=== PATIENT | male | born 1940 | race Two or more races ===

== ENCOUNTER 2025-03-12 15:42 | Outpatient (AMB) | payer MEDICARE, SELFPAY ==
--- NOTE | 2025-03-12 15:49 | HO.NEPHOV ---
Vital Signs 03/12/25 15:53 Height 5 ft 2 in Weight 152 lb 4 oz BMI 27.8 BP 100/50 L Blood Pressure Location Rt brachial Position Sitting Pulse 54 Pulse Source Pulse Oximeter Pulse Oximetry (%) 97 Oxygen Delivery Method Room Air Intake Visit Reasons: DX- CKD (Second opinion)- Conf Sharepoint Application Developer Required: No Accompanied by: Self / Same As Patient Allergies No Known Allergies Allergy (Verified 03/12/25 15:50) HPI Comments Details: I had the pleasure of seeing Mr Cotton in consultation and transfer of his renal care to me. He has seen another electronic wirer in the past. He is known to have vascular disease including CAD needing CABG. He has mild ascending aortic dialatation. He also has H/O DM, HTN and gout. He had GFR of 30 mls/mt for some time which has worsened recently to 15 mls/mt. He is on multiple anti hypertensive medications including ARB. He denies CHF, CVA or PAD. He does not have any new bone or back pain. He does not take excess NSAID's . He denies Chest pain, SOB, PND, orthopnea or uremic symptoms. He never had renal biopsy. [facility] Medical History (Updated 03/12/25 @ 16:34 by Meir Domínguez MD) Obstructive sleep apnea syndrome Mild ascending aorta dilatation Hypertension HLD (hyperlipidemia) Helicobacter pylori (H. pylori) Gout Diabetes mellitus Chronic kidney disease, stage 4 (severe) CAD (coronary artery disease), [place] coronary artery Adult hypothyroidism Surgical History H/O colonoscopy S/P CABG x 4 Social History (Updated 03/12/25 @ 15:50 by Madison Harrison MA) Alcohol intake: never Patient Tobacco Use Status: Never used Tobacco Review of Systems Const All systems reviewed & are unremarkable except as noted in HPI and below Physical Exam Vital Signs: Last Vital Signs Pulse 54 03/12/25 15:53 BP 100/50 L 03/12/25 15:53 Pulse Ox 97 03/12/25 15:53 Oxygen Delivery Method Room Air 03/12/25 15:53 BMI result Body Mass Index 27.8 Const General: comfortable and no acute distress Orientation/consciousness: patient oriented x3 HEENT Head: Yes normocephalic Mouth: Normal oral and palatal mucosa present Eyes EOM: EOMs intact bilaterally Neck Neck: Yes supple Resp Auscultation: clear to auscultation bilaterally Cardio Jugular venous distension: no JVD Rate: regular rate GI Palpation (GI): Soft to palpation Auscultation: normal bowel sounds General: Yes no CVA tenderness Back/Spine/Pelvis Back: no CVA tenderness Skin General skin exam: no rashes or lesions noted Neuro General: patient oriented x3 and moves all extremities Extrem General: Yes no pedal edema Assessment & Plan Assessment & Plan (1) Chronic kidney disease, stage 4 (severe): Code(s): N18.4 - Chronic kidney disease, stage 4 (severe) Category: Medical (2) Hypertension: Code(s): I10 - Essential (primary) hypertension Category: Medical Qualifiers: Hypertension type: renovascular hypertension Qualified Code(s): I15.0 - Renovascular hypertension (3) Anemia in chronic kidney disease: Code(s): N18.9 - Chronic kidney disease, unspecified; D63.1 - Anemia in chronic kidney disease Category: Medical Qualifiers: Chronic kidney disease stage: stage 4 (GFR 15-29) Qualified Code(s): N18.4 - Chronic kidney disease, stage 4 (severe); D63.1 - Anemia in chronic kidney disease Plan Mr Cotton has advanced CKD likely due to vascular disease. He is on losartan 50 mg bid which I reduced to 50 mg daily. I have ordered imaging studies and further CKD W/U. I may back off on ARB to see whether he will have some improvement in GFR. He will need continued adjustment of BP medications, which I plan to do based on evolving data. He should cut back Na in diet and avoid NSAID's. All questions answered. F/U given in 1 month Orders: Orders Complete Blood Count Auto Diff 3 Weeks D63.1 - Anemia in chronic kidney disease, I10 - Essential (primary) hypertension, N18.4 - Chronic kidney disease, stage 4 (severe), N18.9 - Chronic kidney disease, unspecified Hepatitis B Core Antibody 3 Weeks D63.1 - Anemia in chronic kidney disease, I10 - Essential (primary) hypertension, N18.4 - Chronic kidney disease, stage 4 (severe), N18.9 - Chronic kidney disease, unspecified Anti Glomerular Basement Memb 3 Weeks D63.1 - Anemia in chronic kidney disease, I10 - Essential (primary) hypertension, N18.4 - Chronic kidney disease, stage 4 (severe), N18.9 - Chronic kidney disease, unspecified Immunofixation Pnl, Serum 3 Weeks D63.1 - Anemia in chronic kidney disease, I10 - Essential (primary) hypertension, N18.4 - Chronic kidney disease, stage 4 (severe), N18.9 - Chronic kidney disease, unspecified Creatinine 3 Weeks D63.1 - Anemia in chronic kidney disease, I10 - Essential (primary) hypertension, N18.4 - Chronic kidney disease, stage 4 (severe), N18.9 - Chronic kidney disease, unspecified Electrolytes 3 Weeks D63.1 - Anemia in chronic kidney disease, I10 - Essential (primary) hypertension, N18.4 - Chronic kidney disease, stage 4 (severe), N18.9 - Chronic kidney disease, unspecified Calcium 3 Weeks D63.1 - Anemia in chronic kidney disease, I10 - Essential (primary) hypertension, N18.4 - Chronic kidney disease, stage 4 (severe), N18.9 - Chronic kidney disease, unspecified US renal BI 3 Weeks D63.1 - Anemia in chronic kidney disease, I10 - Essential (primary) hypertension, N18.4 - Chronic kidney disease, stage 4 (severe), N18.9 - Chronic kidney disease, unspecified Ferritin 3 Weeks D63.1 - Anemia in chronic kidney disease, I10 - Essential (primary) hypertension, N18.4 - Chronic kidney disease, stage 4 (severe), N18.9 - Chronic kidney disease, unspecified IRON PROFILE 3 Weeks D63.1 - Anemia in chronic kidney disease, I10 - Essential (primary) hypertension, N18.4 - Chronic kidney disease, stage 4 (severe), N18.9 - Chronic kidney disease, unspecified Hepatitis C Antibody Reflex 3 Weeks D63.1 - Anemia in chronic kidney disease, I10 - Essential (primary) hypertension, N18.4 - Chronic kidney disease, stage 4 (severe), N18.9 - Chronic kidney disease, unspecified Myeloperoxidase Antibody 3 Weeks D63.1 - Anemia in chronic kidney disease, I10 - Essential (primary) hypertension, N18.4 - Chronic kidney disease, stage 4 (severe), N18.9 - Chronic kidney disease, unspecified Proteinase 3 PR3 Antibodies 3 Weeks D63.1 - Anemia in chronic kidney disease, I10 - Essential (primary) hypertension, N18.4 - Chronic kidney disease, stage 4 (severe), N18.9 - Chronic kidney disease, unspecified Phospholipase A2 Receptor Pnl 3 Weeks D63.1 - Anemia in chronic kidney disease, I10 - Essential (primary) hypertension, N18.4 - Chronic kidney disease, stage 4 (severe), N18.9 - Chronic kidney disease, unspecified Blood Urea Nitrogen 3 Weeks D63.1 - Anemia in chronic kidney disease, I10 - Essential (primary) hypertension, N18.4 - Chronic kidney disease, stage 4 (severe), N18.9 - Chronic kidney disease, unspecified Parathyroid Hormone Intact 3 Weeks D63.1 - Anemia in chronic kidney disease, I10 - Essential (primary) hypertension, N18.4 - Chronic kidney disease, stage 4 (severe), N18.9 - Chronic kidney disease, unspecified Vitamin D 25-OH Total 3 Weeks D63.1 - Anemia in chronic kidney disease, I10 - Essential (primary) hypertension, N18.4 - Chronic kidney disease, stage 4 (severe), N18.9 - Chronic kidney disease, unspecified US renal doppler 3 Weeks D63.1 - Anemia in chronic kidney disease, I10 - Essential (primary) hypertension, N18.4 - Chronic kidney disease, stage 4 (severe), N18.9 - Chronic kidney disease, unspecified Coding Level of Care Code New Pt Level 4 (79849) Diagnoses Chronic kidney disease, stage 4 (severe) N18.4 Renovascular hypertension I15.0 Hypertension type: renovascular hypertension Anemia in stage 4 chronic kidney disease N18.4; D63.1 Chronic kidney disease stage: stage 4 (GFR 15-29)
[2025-03-12 15:53] VITALS: BP 100/50; PULSE 54; O2SAT 97; BMI 27.8
--- OUTSIDE RECORDS SUMMARY | 2025-03-12 17:43 | XMS_ITS | Encounter Summary ---
Author Organization [facility] Address [address] [place] [address] Phone Care Team Providers Care Insurance Coordinator Name Role Phone Camille Domínguez MD Primary Care Provider [phone] Encounter Details Date Type Department Care Team (Late st Contact Info) Description 01/18/2024 Documentation Only [facility] [address] [place] [address] Sang Lai DO [address] [place] [address] Social History Tobacco Use Types Packs/Day Years Used Date Smoking Tobacco: Never Alcohol Use Standard Drinks/Week Comments No 0 (1 standard drink = 0.6 oz pur e alcohol) Sex and Gender Information Value Date Recorded Sex Assigned at Not on file Legal Sex Male 4:34 PM EST Gender Identity Not on file Sexual Orientation Not on file documented as of this encounter Plan of Treatment Upcoming Encounters Date Type Department Care Team (Late st Contact Info) Description 04/27/2025 1:45 PM EDT Office Visit [facility] [address] [place] [address] Sang Lai DO [address] [place] [address] documented as of this encounter Visit Diagnoses Not on filedocumented in this encounter Care Teams Insurance Coordinator Relationship Specialty Start Date End Date Camille Domínguez MD [address] [place] [address] MEDICINE [place], [place] PCP - General 05/23/19 documented as of this encounter
--- OUTSIDE RECORDS SUMMARY | 2025-03-12 17:43 | XMS_ITS | Clinical Summary ---
Author Organization [facility] [place] [address] Care Team Providers Care Dog Handler Or Trainer Name Role Phone Camille Domínguez MD Primary Care Provider [phone] Social History Tobacco Use Types Packs/Day Years Used Date Smoking Tobacco: Never Smokeless Tobacco: Never Alcohol Use Standard Drinks/Week Comments Not Currently 0 (1 standard drink = 0.6 oz pur e alcohol) Sex and Gender Information Value Date Recorded Sex Assigned at Not on file Legal Sex Male 3:42 PM EDT Gender Identity Not on file Sexual Orientation Not on file Obstetrics History Last Filed Vital Signs Vital Sign Reading Time Taken Comments Blood Pressure 120/60 04/19/2024 1:46 PM EDT Sit ting L Arm Pulse 58 03/31/2024 12:30 PM EDT Temperature - - Respiratory Rate - - Oxygen Saturation - - Inhaled Oxygen Concentration - - Weight 73.9 kg (163 lb) 04/19/2024 1:46 PM EDT Height 160 cm (5' 3 ) 04/19/2024 1:46 PM EDT Body Mass Index 28.87 04/19/2024 1:46 PM EDT Plan of Treatment Health Maintenance Due Date Last Done Comments DTaP,Tdap,and Td Vaccines (1 - Tdap) 1959 Pneumococcal Vaccine: 50+ Ye ars (1 of 1 - PCV) 1990 Zoster Vaccines (1 of 2) 1990 RSV Immunization Adult Patie nts (1 - 1-dose 75+ series) 2015 COVID-19 Vaccine ( - 2023-2 5 season) 2024 Cholesterol Screening (Lipid Panel) 04/27/2024 Falls Risk Assessment 04/27/2024 Hypertension/CHF/CAD Annual BMP Blood Test 04/27/2024 Social Influencers of Health Screening 04/27/2024 Depression Screening 07/19/2024 Influenza Vaccine (#1) 2025 HIB Vaccines Aged Out No longer eligi ble based on patient's age to complete this topic HPV Vaccines Aged Out No longer eligi ble based on patient's age to complete this topic Hepatitis A Vaccines Aged Out No long er eligible based on patient's age to complete this topic Hepatitis B Vaccines Aged Out No long er eligible based on patient's age to complete this topic IPV Vaccines Aged Out No longer eligi ble based on patient's age to complete this topic MMR Vaccines Aged Out No longer eligi ble based on patient's age to complete this topic Meningococcal ACWY Vaccine Aged Out N o longer eligible based on patient's age to complete this topic Meningococcal B Vaccine Aged Out No l onger eligible based on patient's age to complete this topic RSV Immunization Patients Un buddy 20 months Aged Out No longer eligible b ased on patient's age to complete this topic Varicella Vaccines Aged Out No longer eligible based on patient's age to complete this topic Care Teams Dog Handler Or Trainer Relationship Specialty Start Date End Date Camille Domínguez MD [address] [place] [address] PCP - General 03/22/24
--- OUTSIDE RECORDS SUMMARY | 2025-03-12 17:43 | XMS_ITS | Encounter Summary ---
Author Organization [facility] Address [address] [place] [address] Phone Care Team Providers Care Cost And Risk Analysis Manager Name Role Phone Camille Domínguez MD Primary Care Provider [phone] Encounter Details Date Type Department Care Team (Late st Contact Info) Description 04/26/2024 Documentation Only [facility] [address] [place] [address] Sang Lai DO [address] [place] [address] Social History Tobacco Use Types [...] Visit [facility] [address] [place] [address] Sang Lai DO [address] [place] [address] documented as of this encounter Visit Diagnoses Not on filedocumented in this encounter Care Teams Cost And Risk Analysis Manager Relationship Specialty Start Date End Date Camille Domínguez MD [address] [place] [address] MEDICINE [place], [place] PCP - General 05/23/19 documented as of this encounter
--- OUTSIDE RECORDS SUMMARY | 2025-03-12 17:43 | XMS_ITS | Encounter Summary ---
Author Organization [facility] Address [address] [place] [address] Phone Care Team Providers Care Seismic Observer Name Role Phone Camille Domínguez MD Primary Care Provider [phone] Encounter Details Date Type Department Care Team (Late Contact Info) Description 09/10/2019 Orders Only [facility] [address] [place] [address] Sang Lai DO [address] [facility] [place] [address] Benign prostatic hypertrophy without outflow obstruction Social History Tobacco Use Types Packs/Day Years [...] Visit [facility], [address] [place] [address] Sang Lai DO [address] [facility] [place] [address] documented as of this encounter Visit Diagnoses Diagnosis Benign prostatic hypertrophy without outflow obstruction documented in this encounter Care Teams Seismic Observer Relationship Specialty Start Date End Date Camille Domínguez MD [address] [facility] MEDICINE [place], [place] PCP - General 05/23/19 documented as of this encounter
--- OUTSIDE RECORDS SUMMARY | 2025-03-12 17:43 | XMS_ITS | Encounter Summary ---
Author Organization [facility] Address [address] [place] [address] Phone Care Team Providers Care Firewood Cutter Name Role Phone Camille Domínguez MD Primary Care Provider [phone] Encounter Details Date Type Department Care Team (Late st Contact Info) Description 05/13/2023 Documentation Only [facility] [address] [place] [address] Sang Lai DO [address] [place] [phone] Social History Tobacco Use Types Packs/Day Years [...] Visit [facility] [address] [place] [address] Sang Lai DO [address] [place] [address] documented as of this encounter Visit Diagnoses Not on filedocumented in this encounter Care Teams Firewood Cutter Relationship Specialty Start Date End Date Camille Domínguez MD [address] [place] [address] MEDICINE [place], [place] PCP - General 05/23/19 documented as of this encounter
--- OUTSIDE RECORDS SUMMARY | 2025-03-12 17:43 | XMS_ITS | Encounter Summary ---
Author Organization [facility] [place], Address [address] [place] [address] Phone Care Team Providers Care Silk Soaker Name Role Phone Camille Domínguez MD Primary Care Provider [phone] Encounter Details Date Type Department Care Team (Late Contact Info) Description 02/23/2025 Orders Only [facility] [address] [place] [place] [address] Laura Lopez [address] [place] [phone] Chronic kidney disease, stage 4 (severe) (HCC) Social History Tobacco Use Types Packs/Day Years [...] [facility] [address] [place] [address] Sang Lai DO [address] [place] [address] documented as of this encounter Visit Diagnoses Diagnosis Chronic kidney disease, stage 4 (severe) (HCC) documented in this encounter Care Teams Silk Soaker Relationship Specialty Start Date End Date Camille Domínguez MD [address] [place], [place] PCP - General 05/23/19 documented as of this encounter
--- OUTSIDE RECORDS SUMMARY | 2025-03-12 17:43 | XMS_ITS | Encounter Summary ---
Author Organization [facility] Address [address] [place] [address] Phone Care Team Providers Care Research Nutritionist Name Role Phone Camille Domínguez MD Primary Care Provider [phone] Encounter Details Date Type Department Care Team (Late st Contact Info) Description 08/30/2024 Documentation Only [facility] [address] [address] Sang Lai DO [address] [facility] [address] [place] [phone] Social History Tobacco Use Types Packs/Day Years [...] Visit [facility] [address] [address] Sang Lai DO [address] [facility] [address] [place] [address] documented as of this encounter Visit Diagnoses Not on filedocumented in this encounter Care Teams Research Nutritionist Relationship Specialty Start Date End Date Camille Domínguez MD [address] [place] [address] MEDICINE [place], [place] PCP - General 05/23/19 documented as of this encounter
--- OUTSIDE RECORDS SUMMARY | 2025-03-12 17:43 | XMS_ITS | Clinical Summary ---
Author Organization [facility], Address [address] [place] [address] [place] [address] Phone Care Team Providers Care Gutter Installer Name Role Phone Camille Domínguez MD Primary Care Provider [phone] Allergies No known active allergies Medications aspirin 81 MG tablet Take 81 mg by mouth 1 (one) time each day Active atorvastatin (LIPITOR) 20 MG tablet Take 20 mg by mouth 1 (one) time each day Active metoprolol succinate XL (TOPROL-XL) 25 MG 24 hr tablet Take 25 mg by mouth 1 (one) time each day Active doxazosin (CARDURA) 4 MG tablet Take 1 tablet (4 mg total) by mouth every night 90 tablet 3 0 Active levothyroxine (SYNTHROID, LEVOTHROID) 75 MCG tablet levothyroxine 75 mcg tablet TAKE 1 TABLET BY MOUTH EVERY DAY Active amLODIPine (NORVASC) 5 MG tablet Take 5 mg by mouth 1 (one) time each day Active allopurinol (ZYLOPRIM) 100 MG tablet TAKE 1 TABLET BY MOUTH EVERY DAY 90 tablet 3 4 Active losartan (COZAAR) 50 MG tablet Take 1 tablet (50 mg total) by mouth in the morning and 1 tablet (50 mg total) in the evening. 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, with stage 1 through stage 4 chronic kidney disease, or unspecified chronic kidney disease 08/10/2019 Hypothyroidism Hyperlipidemia Hypertension Gout Benign prostatic hyperplasia without outflow obs truction Resolved Problems Problem Noted Date Diagnosed Date Resolved Date Stage 3b chronic kidney disease 08/10/2019 12/24/2021 Encounters Date Type Department Care Team Description 02/23/2025 Orders Only [facility] V[facility] Access [address] [place] [phone] Laura Lopez Chronic kidney disease, stage 4 (severe) (HCC) 02/16/2025 Documentation Only [facility] [address] [place] [phone] Laura Lopez 02/12/2025 Telephone [facility] [address] [place] [phone] Laura Lopez 02/12/2025 Orders Only [facility] [address] [place] [phone] Laura Lopez Chronic kidney disease, stage 4 (severe) (HCC) (Primary Dx) 02/12/2025 Orders Only [facility] [address] [place] [phone] Laura Lopez Chronic kidney disease, stage 4 (severe) (HCC) (Primary Dx); Anemia in chronic kidney disease; Other iron deficiency anemia 02/09/2025 1:45 PM EDT Office Visit [facility] [address] [place] [phone] Sang Lai DO Other acute kidney failure (HCC) (Primary Dx); Chronic kidney disease, stage 4 (severe) (HCC); Hypertensive heart and chronic kidney disease without heart failure, with stage 1 through stage 4 chronic kidney disease, or unspecified chronic kidney disease; Persistent proteinuria; Aneurysm of aorta, not otherwise specified (HCC) 02/08/2025 Office Communication [facility] [address] [place] [phone] Christina Lockett 01/02/2025 Documentation Only [facility], - Vascular Access Center [address] [place] [address] Hue Lopezn 12/28/2024 Refill [facility], [address] [place] [phone] Sang Lai DO from Last 3 Months Immunizations Immunization Administration Dates Next Due H1N1 Inj 11/01/2009 Influenza (IM) Preservative Free 06/01/2019 Influenza Split High Dose Pr eservative Free IM 04/20/2016,05/04/2015 Influenza TIV (IM) 06/02/2016 Influenza Vaccine, Quadrival ent, Adjuvanted 03/25/2020 Influenza Whole 06/02/2006 Influenza, Unspecified 04/14/2023,2021,04/09/2021,03/25,06/01/2019,04/28/2018,05/18/2017 ,05/28/2015,04/19/2014,06/13/2013,1210/2011,04/28/2011,07/09/2010, 8 Moderna SARS-COV-2 12/05/2021 Pfizer SARS-COV-2 04/14/2021,09/10/2020,08/20/19 21 Pneumococcal Conjugate 13-Valent 08/13/2016,01/0 09/2016 Pneumococcal Polysaccharide 05/17/2018, 7,06/02/2006 SARS-CoV-2, Unspecified 05/12/2023,04/27/2022 Shingrix 07/20/2022,01/15/2022 Td, Unspecified 12/23/2016,02/02/2007 Family History Medical History Relation Comments Hypertension Father Stroke Father Relation Status Comments Father Social History Tobacco Use Types Packs/Day Years Used Date Smoking Tobacco: Never Alcohol Use Standard Drinks/Week Comments No 0 (1 standard drink = 0.6 oz pur e alcohol) Sex and Gender Information Value Date Recorded Sex Assigned at Not on file Legal Sex Male 4:34 PM EST Gender Identity Not on file Sexual Orientation Not on file Last Filed Vital Signs Vital Sign Reading Time Taken Comments Blood Pressure 118/54 02/09/2025 1:53 PM EDT Pulse 70 02/09/2025 1:53 PM EDT Temperature - - Respiratory Rate - - Oxygen Saturation - - Inhaled Oxygen Concentration - - Weight 76.7 kg (169 lb) 12/24/2021 4:31 PM EDT Height 165.1 cm (5' 5 ) 02/02/2019 12:00 PM EDT Body Mass Index 28.12 02/02/2019 12:00 PM EDT Plan of Treatment Upcoming Encounters Date Type Department Care Team (Late st Contact Info) Description 04/27/2025 1:45 PM EDT Office Visit [facility], [address] [place] [address] Sang Lai, [address] [place] [phone] Health Maintenance Due Date Last Done Comments Diabetes: Hemoglobin A1C 09/11/2022 09/01/2021, 02/16 Diabetes: Ophthalmology Exam 09/11/2022 11/23/2017, 08/05/2016, 06/09/2016 Diabetes: Pedal Pulse Checked 09/11/2022 Diabetes: Sensory Foot Exam 09/11/2022 Diabetes: Visual Foot Exam 09/11/2022 Influenza Vaccine (#1) 2025 3, 04/27/2022, 04/09/2021, Additional history exists Pneumococcal Vaccine: 50+ Years Completed 05/17/2018, 08/13/2016, 08/13/2016, Additional history exists Pneumococcal Vaccine: Peds (0 to 5 Years) and At-Risk Patients (6 to 49 Years) Discontinued 05/17/2018, 08/13/2016, 08/13/2016, Additional history exists Hepatitis B Vaccine Aged Out No longe r eligible based on patient's age to complete this topic Procedures Procedure Name Priority Date/Time Associated Diagnosis Comments PTH, INTACT Routine 01/23/2025 3:33 PM EDT VITAMIN D 25 HYDROXY Routine 01/23/2025 3:33 PM EDT URINE ALBUMIN / CREATININE RATIO Routine 01/23/2025 3:33 PM EDT CBC Routine 01/23/2025 3:33 PM EDT RENAL FUNCTION PANEL Routine 01/23/2025 3:33 PM EDT HEMOGLOBIN A1C Routine 09/01/2021 7:55 AM EST Stage 3b chronic kidney disease (HCC) Hypertensive heart and chronic kidney disease without heart failure, with stage 1 through stage 4 chronic kidney disease, or unspecified chronic kidney disease from Last 3 Months or Most Recently Relevant to Health Maintenance Results * (ABNORMAL) Urine Albumin / Creatinine Ratio (01/23/2025 3:33 PM EDT) Creatinine, Ur 174.3 Not Estab. mg/dL [facility] Albumin, Urine 740.7 Not Estab. ug/mL [facility] Comment: Results confirmed on dilution. Albumin/Creatin ine Ratio 425(H) 0 - 29 mg/g creat [facility] Comment: Normal: 0 - 29 Moderately increased: 30 - 300 Severely increased: >300 01/23/2025 3:33 PM EDT 01/23/2025 us Sang Lai DO LAB URINE ORDERABLES Final Resu lt LABVoolgoRP [facility] [address] [place] [address] * (ABNORMAL) Vitamin D 25 Hydroxy (01/23/2025 3:33 PM EDT) Vitamin D, 25-OH, Total 23.1(L) 30.0 - 100.0 ng/mL [facility] Comment: Vitamin D deficiency has been defined by the [place] of Medicine and an Endocrine Society practice guideline as a level of serum 25-OH vitamin D less than 20 ng/mL (1,2). The Endocrine Society went on to further define vitamin D insufficiency as a level between 21 and 29 ng/mL (2). 1. IOM ([place] of Medicine). 2010. Dietary reference intakes for calcium and D. [place]: The National Academies Press. 2. Urvashi MF, Rhona [place], Judith VASQUEZ, et al. Evaluation, treatment, and prevention of vitamin D deficiency: an Endocrine Society clinical practice guideline. JCEM. 2010; 96(7):1911-30. 01/23/2025 3:33 PM EDT 01/23/2025 us Sang Lai DO LAB BLOOD ORDERABLES Final Resu lt L[facility]P [facility] [address] [place] [address] * (ABNORMAL) CBC (01/23/2025 3:33 PM EDT) WBC 5.0 3.4 - 10.8 x10E3/uL [facility] RBC 2.81(L) 4.14 - 5.80 x10E6/uL [facility] Hemoglobin 9.8(L) 13.0 - 17.7 g/dL [facility] Hematocrit 29.5(L) 37.5 - 51.0 % [facility] MCV 105(H) 79 - 97 fL [facility] MCH 34.9(H) 26.6 - 33.0 pg [facility] MCHC 33.2 31.5 - 35.7 g/dL [facility] RDW 12.9 11.6 - 15.4 % [facility] Platelets 117(L) 150 - 450 x10E3/uL [facility] 01/23/2025 3:33 PM EDT 01/23/2025 Sang Traceyry LAB BLOOD ORDERABLES Final Resu lt LABCO [facility] [address] [place] [address] * (ABNORMAL) PTH, Intact (01/23/2025 3:33 PM EDT) PTH 144(H) 15 - 65 pg/mL [facility] 01/23/2025 3:33 PM EDT 01/23/2025 Sang Lai LAB BLOOD ORDERABLES Final Resu lt Performing Organization Address [facility] Co de Phone Number LABCO [facility] [address] [place] [address] * (ABNORMAL) Renal Function Panel (01/23/2025 3:33 PM EDT) Glucose 99 70 - 99 mg/dL [facility] BUN 49(H) 8 - 27 mg/dL [facility] Creatinine 3.54(H) 0.76 - 1.27 mg/dL [facility] eGFR CKD-EPI CR 2020 16(L) >59 mL/min/1.7 3 [facility] BUN/Creatinine Ratio 14 10 - 24 [facility] Sodium 138 134 - 144 mmol/L [facility] Potassium 4.5 3.5 - 5.2 mmol/L [facility] Chloride 102 96 - 106 mmol/L [facility] Bicarbonate (CO2) 21 20 - 29 mmol/L [facility] Calcium 8.8 8.6 - 10.2 mg/dL [facility] Albumin 3.9 3.7 - 4.7 g/dL [facility] Phosphorus 3.6 2.8 - 4.1 mg/dL [facility] 01/23/2025 3:33 PM EDT 01/23/2025 us Sang Lai DO LAB BLOOD ORDERABLES Final Resu lt [facility] [address] [place] [address] * (ABNORMAL) Hemoglobin A1c (09/01/2021 7:55 AM EST) Hemoglobin A1C 6.2(H) (4.0-5.6) % [facility] Comment: MONITORING: In known diabetic patients, hemoglobin A1c targets should be discussed with health care provider. DIAGNOSTIC USE: The [place] Diabetes Association (ADA) and the World Health Organization (WHO) recommend the use of HbA1c to diagnose diabetes using a threshold of 6.5%. Patients who have an HbA1c between 5.7% and 6.4% are considered at increased risk for developing diabetes in the future. CAUTION: Falsely low HbA1c results may be observed in patients with hemolytic anemia, homozygous forms of abnormal hemoglobin (e.g. SS, CC, SC), , recent blood loss or hemoglobin F greater than 7%. Fructosamine may be used as an alternate test in these cases. REFERENCE: ADA: Standards of Medical Care in Diabetes 2020, The Journal of Clinical and Applied Research and Education Volume 43, Supplement 1 Testing performed or reported by [facility], a Service of [facility], [address] [place] [address] Scotty Castelan MD, Adhesive Sprayer IA# [id number] Blood specimen (specimen) Venous blood / Unknown 09/01/2021 7:55 AM EST 09/01/2021 8:00 AM EST us Sang Lai DO LAB BLOOD ORDERABLES Final Resu lt [facility] from Last 3 Months or Most Recently Relevant to Health Maintenance Insurance Medicare Care Teams Gutter Installer Relationship Specialty Start Date End Date Camille Domínguez MD [address], [place] PCP - General 05/23/19
--- OUTSIDE RECORDS SUMMARY | 2025-03-12 17:43 | XMS_ITS | Encounter Summary ---
Author Organization [facility] Address [address] [place] [address] Phone Care Team Providers Care Medical Accounting Clerk Name Role Phone Camille Domínguez MD Primary Care Provider [phone] Encounter Details Date Type Department Care Team (Late st Contact Info) Description 12/05/2024 Orders Only [facility] V[facility] Access Center [address] [place] [address] Laura Lopez [address] [place] [phone] Chronic kidney disease, stage 4 (severe) (HCC) (Primary Dx) Social History Tobacco Use Types Packs/Day Years [...] Visit [facility] [address] [place] [address] Sang Lai [address] [place] [address] Scheduled Orders Name Type Priority Associated Diagnoses Orde r Schedule Urine Albumin / Creatinine Ratio Lab Routine Chronic kidney disease, stage 4 (severe) (HCC) Every 12 Weeks for 4 Occurrences starting 12/05/2024 until 01/05/2026 documented as of this encounter Visit Diagnoses Diagnosis Chronic kidney disease, stage 4 (severe) (HCC)- Primary documented in this encounter Care Teams Medical Accounting Clerk Relationship Specialty Start Date End Date Camille Domínguez MD [address] [place], [place] PCP - General 05/23/19 documented as of this encounter
--- OUTSIDE RECORDS SUMMARY | 2025-03-12 17:43 | XMS_ITS | Encounter Summary ---
Author Organization [facility] Address [address] [place] [address] Phone Care Team Providers Care Finishing Manager Name Role Phone Camille Domínguez MD Primary Care Provider [phone] Encounter Details Date Type Department Care Team (Late st Contact Info) Description 05/27/2023 Documentation Only [facility] [address] [place] [address] Sang Lai DO [address] [facility] [place] [address] Social History Tobacco Use Types [...] Visit [facility] [address] [place] [address] Sang Lai DO [address] [facility] [place] [address] documented as of this encounter Visit Diagnoses Not on filedocumented in this encounter Care Teams Finishing Manager Relationship Specialty Start Date End Date Camille Domínguez MD [address] [place] [address] [place] PCP - General 05/23/19 documented as of this encounter
--- OUTSIDE RECORDS SUMMARY | 2025-03-12 17:44 | XMS_ITS | Encounter Summary ---
Author Organization [facility] Address [address] [place] [phone] Phone Care Team Providers Care Child Care Provider Name Role Phone Camille Domínguez MD Primary Care Provider [phone] Encounter Details Date Type Department Care Team (Late st Contact Info) Description 01/04/2025 Procedure [facility] [address] [place] [address] Social History Tobacco Use Types Packs/Day Years Used Date Smoking Tobacco: Never Alcohol Use Standard Drinks/Week Comments No 0 (1 standard drink = 0.6 oz pur e alcohol) Education Answer Date Recorded Are you interested in more education? Not on monica e 11/12/2022 Are you concerned about learning? Not on file 11/12/2022 No 11/12/2022 No 11/12/2022 Food Answer Date Recorded Within the past 6 months we worried whether our food would run out before we got money to buy more. Never True 01/05/2025 Within the past 6 months the food we bought just didn't last and we didn't have enough money to get more. Never True Residential Stability Answer Date Recor ded What is your housing situation today? I have jaclyn sing 01/05/2025 How many times have you move d in the past 12 months? Zero (I did not move) 01/05/2025 Paying for Meds Answer Date Recorded Do you have trouble paying for medicines? No 01/05/2025 Paying Utility Bills Answer Date Record ed Do you have trouble paying your heating or elect ricity bill? No 01/05/2025 Transportation Answer Date Recorded Has the lack of transportati on kept you from medical appointments or from getting medications? No 01/05/2025 Digital Access Answer Date Recorded No 01/05/2025 Yes 01/05/2025 Do you have reliable internet access at home? Ye s 01/05/2025 Do you have a device (e.g., phone, tablet, computer) with a working camera? Yes 01/05/2025 Intimate Partner Violence Answer Date R ecorded Are you denied basic needs s uch as food, clothing, or medical care? No 01/05/2025 In the past 12 months have y ou been in a relationship with a person who hurts, threatens, or tries to control you? No 01/05/2025 Are you denied basic needs s uch as food, clothing, or medical care? No 01/05/2025 In the past 12 months have y ou been in a relationship with a person who hurts, threatens, or tries to control you? No 01/05/2025 Sex and Gender Information Value Date Recorded Sex Assigned at Male 01/04/2025 6:12 PM EDT Legal Sex Male 7:59 PM EST Gender Identity Male 01/04/2025 6:12 PM EDT Sexual Orientation Straight 01/04/2025 6: 12 PM EDT documented as of this encounter Functional Status * Calculated C-SSRS Risk Score (Lifetime/Recent) Answer Date of Assessment Author No Risk Indicated 01/05/2025 2:30 AM EDT Emmanuelle Marti RN * [place] Suicide Severity Rating Scale (Screener/Recent Self-Report) Question Answer Date of Assessment Author 1. Wish to be (Past 1 Month) No 01/05/2025 2:30 AM EDT Emmanuelle Marti RN 2. Non-Specific Active Suicidal Thoughts (Past 1 Month) No 01/05/2025 2:30 AM EDT Emmanuelle Marti RN 6. Suicidal Behavior (Lifetime) No 01/05/2025 2:30 AM EDT Emmanuelle Marti RN documented as of this encounter Plan of Treatment Not on file documented as of this encounter Visit Diagnoses Not on filedocumented in this encounter Care Teams Child Care Provider Relationship Specialty Start Date End Date Camille Domí[place] [address] [place] [address] PCP - General Internal Medicine 01/04/25 documented as of this encounter Additional Source Comments The information contained in this document represents components of the legal health record. It is not the complete legal health record.[facility]
--- OUTSIDE RECORDS SUMMARY | 2025-03-12 17:44 | XMS_ITS | Encounter Summary ---
Author Organization [facility], Address [address] [place] [address] Phone Care Team Providers Care Accounts Receivable Processor Name Role Phone Camille Domínguez MD Primary Care Provider [phone] Reason for Visit * Reason Comments Med Refill Encounter Details Date Type Department Care Team (Late Contact Info) Description 01/22/2020 Refill [facility] [address] [place] [address] Sang Lai DO [address] [facility] [place] [address] Social History Tobacco Use Types [...] Encounters Date Type Department Care Team (Late Contact Info) Description 04/27/2025 1:45 PM EDT Office Visit [facility], [address] [place] [address] Sang Lai DO [address] [facility] [address] [place] [address] documented as of this encounter Visit Diagnoses Not on filedocumented in this encounter Care Teams Accounts Receivable Processor Relationship Specialty Start Date End Date Camille Domínguez MD [address] [place], [place] PCP - General 05/23/19 documented as of this encounter
--- OUTSIDE RECORDS SUMMARY | 2025-03-12 17:44 | XMS_ITS | Clinical Summary ---
Author Organization [facility] Address [address] [facility] [place] [id number] Phone Care Team Providers Care Gaming Pit Boss Name Role Phone Camille Domínguez MD Primary Care Provider [phone] Allergies No known active allergies Medications METOPROLOL SUCCINATE ORAL Take 25 mg by mouth daily. Active PRAVASTATIN SODIUM (PRAVASTATIN ORAL) Take by mouth. Active TERAZOSIN HCL (TERAZOSIN ORAL) Take by mouth. Active AMLODIPINE BESYLATE (AMLODIPINE ORAL) Take 2.5 mg by mouth 2 (two) times a day. Active LEVOTHYROXINE SODIUM (LEVOTHYROXINE ORAL) Take 75 mcg by mouth daily with breakfast. Active aspirin 325 MG tablet Take 325 mg by mouth daily. Active cholecalciferol (VITAMIN D3) 2,000 unit tablet Take 1,000 Units by mouth daily. Active Ca cit-D3-mag#11-z aia-tcjj-ngo-aaliyah r (CALTRATE 600+D) 600 mg calcium- 800 unit-50 mg Tab Take 1 tablet by mouth daily. Active omega 3-rxm-ggt-fish oil 1,000 mg (120 mg-180 mg) Cap Take 1 capsule by mouth daily. Active colchicine (COLCRYS) 0.6 mg tablet Take 0.6 mg by mouth as needed. Active doxazosin (CARDURA) 4 MG tablet Take 4 mg by mouth daily with lunch. Active torsemide (DEMADEX) 5 MG tablet Take 5 mg by mouth daily with lunch. Active allopurinol (ZYLOPRIM) 100 MG tablet Take 100 mg by mouth daily. Active losartan (COZAAR) 50 MG tablet Take 50 mg by mouth 2 (two) times a day. Active cefpodoxime (VANTIN) 100 MG tablet Take 1 tablet (100 mg total) by mouth daily. 4 tablet 01/06/2025 Active Active Problems Problem Noted Date Diagnosed Date Benign prostatic hyperplasia without urinary obs truction 01/04/2025 Gout 01/04/2025 Acute urinary tract infection 01/04/2025 Chronic kidney disease, stage 4 (severe) 022 Aneurysm of aorta 08/10/2019 Sleep apnea 08/03/2013 Overview (09/08/2014): Sleep apnea Uncoded S/P Coronary artery bypass grafts x 4 Overview (09/08/2014): S/P Coronary artery bypass grafts x 4 Hypertension 10/05/2012 Overview (09/08/2014): Hypertension Hyperlipidemia 10/05/2012 Overview (09/08/2014): Hypercholesterolemia Hypothyroidism 10/05/2012 Overview (09/08/2014): Thyroid disease Encounters Date Type Department Care Team Description 01/04/2025 5:51 PM EDT - 01/06/2025 12:29 PM EDT Hospital Encounter [facility] [address] [id number] Ina Watson MD Noronha, MD Nicko Guajardo Sami, MD Parker, Erica Amador MD, MS An, Jean-Claude Rocha MD Discharge Disposition: Home or Self Care 01/04/2025 Procedure [facility] Emergency Department, [facility] [address] [place] [address] from Last 3 Months Family History Medical History Relation Comments Glaucoma Neg Hx Macular degeneration Neg Hx Social History Tobacco Use Types Packs/Day Years [...] your housing situation today? I have jaclyn lindsay 01/05/2025 How many times have you move [...] Orientation Straight 01/04/2025 6: 12 PM EDT Last Filed Vital Signs Vital Sign Reading Time Taken Comments Blood Pressure 138/75 01/06/2025 8:19 AM EDT Pulse 66 01/06/2025 3:40 AM EDT Temperature 36.1 C (97 F) 01/06/2025 8:19 AM EDT Respiratory Rate 18 01/06/2025 3:40 AM EDT Oxygen Saturation 97% 01/06/2025 8:19 AM EDT Inhaled Oxygen Concentration - - Weight 69 kg (152 lb 1.9 oz) 01/05/2025 2:16 AM EDT Height 165.1 cm (5' 5 ) 01/05/2025 2:16 AM EDT Body Mass Index 25.31 01/05/2025 2:16 AM EDT Plan of Treatment Health Maintenance Due Date Last Done Comments Adult Td,Tdap Booster 1940 BLOOD PRESSURE 1940 TSH LEVEL 1940 DEPRESSION SCREENING 1952 LIPID PANEL 1958 ZOSTER VACCINES (1 of 2) 1990 RSV VACCINE (1 - 1-dose 75+ series) 2015 COVID-19 VACCINE (3 - 2023-2 5 season) 2024 09/10/2020, 08/20/2020 CREATININE LEVEL 01/06/2026 01/06/2025, 01/05/2025, 01/04/2025 POTASSIUM LEVEL 01/06/2026 01/06/2025, 01/05/2025, 01/04/2025 PNEUMOCOCCAL VACCINES (50+ years) Completed 05/17/2018, 08/13/2016 HEPATITIS A VACCINES Aged Out No long er eligible based on patient's age to complete this topic HIB VACCINES Aged Out No longer eligi ble based on patient's age to complete this topic MENINGOCOCCAL VACCINES (ACWY) Aged Out No longer eligible based on patient's age to complete this topic MENINGOCOCCAL VACCINES (B) Aged Out N o longer eligible based on patient's age to complete this topic Medical Devices Not on file Procedures Procedure Name Priority Date/Time Associated Diagnosis Comments POCT GLUCOSE Routine 01/06/2025 11:39 AM EDT POCT GLUCOSE Routine 01/06/2025 7:27 AM EDT BASIC METABOLIC PANEL Routine 01/06/2025 6:58 AM EDT CBC Routine 01/06/2025 6:58 AM EDT POCT GLUCOSE Routine 01/05/2025 8:56 PM EDT POCT GLUCOSE Routine 01/05/2025 5:12 PM EDT POCT GLUCOSE Routine 01/05/2025 11:56 AM EDT POCT GLUCOSE Routine 01/05/2025 7:23 AM EDT CYSTATIN C Routine 01/05/2025 6:17 AM EDT CBC AND DIFFERENTIAL Routine 01/05/2025 6:17 AM EDT BASIC METABOLIC PANEL Routine 01/05/2025 6:[address] ABDOMEN/PELVIS WITHOUT CONTRAST Routine 01/05/2025 12:13 AM EDT POCT GLUCOSE Routine 01/05/2025 12:05 AM EDT POCT GLUCOSE Routine 01/05/2025 12:04 AM EDT LACTIC ACID (LACTATE) STAT 01/04/2025 8:30 PM EDT BLOOD CULTURE, ROUTINE STAT 01/04/2025 7:53 PM EDT BLOOD CULTURE, ROUTINE STAT 01/04/2025 7:53 PM EDT XR CHEST PORTABLE Routine 01/04/2025 7:4 7 PM EDT URINALYSIS W/REFLEX URINE CULTURE STAT 01/04/2025 6:57 PM EDT URINE CULTURE STAT 01/04/2025 6:57 PM EDT HEMOGLOBIN A1C Routine 01/04/2025 5:58 PM EDT LAB ADD ON Routine 01/04/2025 5:58 PM EDT VITAMIN B12 Routine 01/04/2025 5:58 PM EDT LAB ADD ON Routine 01/04/2025 5:58 PM EDT LFTS (HEPATIC PANEL) STAT 01/04/2025 5:58 PM EDT LACTIC ACID (LACTATE) STAT 01/04/2025 5:58 PM EDT BASIC METABOLIC PANEL STAT 01/04/2025 5:58 PM EDT CBC AND DIFFERENTIAL STAT 01/04/2025 5:58 PM EDT from Last 3 Months Results * (ABNORMAL) POCT Glucose (01/06/2025 11:39 AM EDT) Only the most recent of7 resultswithin the time period is included. Glucose, POCT 147(H) 70 - 100 mg/dL [facility] 01/06/2025 11:3 9 AM EDT 01/06/2025 11:41 AM EDT us Jean-Claude Galeana MD POINT OF CARE TEST ORDERABLES Fi nal Result Performing Organization Address City/State/[facility] Co de Phone Number [facility] [address] [place] [address] * (ABNORMAL) CBC (01/06/2025 6:58 AM EDT) [facility] WBC 14.58(H) 4.00 - 11.00 K/uL [facility] RBC 2.91(L) 4.50 - 5.90 M/uL [facility] HGB 10.0(L) 13.5 - 17.5 g/dL [facility] HCT 30.5(L) 41.0 - 53.0 % [facility] PLT 112(L) 150 - 450 K/uL [facility] MCV 104.8(H) 80.0 - 100.0 fL [facility] MCH 34.4(H) 27.0 - 31.0 pg [facility] MCHC 32.8 32.0 - 36.0 g/dL [facility] RDW 13.1 11.5 - 14.5 % [facility] MPV 11.6 8.4 - 12.0 fL [facility] NRBC 0.00 0.00 /100 WBCs [facility] Blood 01/06/2025 6:58 AM EDT 01/06/2025 7:38 AM EDT Crystal Ellsworth PA-C LAB BLOOD ORDERABLES Fin al Result [facility] [address] [phone] * (ABNORMAL) Basic metabolic panel (01/06/2025 6:58 AM EDT) Only the most recent of3 resultswithin the time period is included. SODIUM 139 136 - 145 mmol/L [facility] CHLORIDE 105 95 - 106 mmol/L [facility] POTASSIUM 4.4 3.5 - 5.2 mmol/L [facility] CO2 23 20 - 31 mmol/L [facility] BUN 45(H) 9 - 23 mg/dL [facility] CREATININE 2.94(H) 0.50 - 1.30 mg/dL [facility] GLUCOSE 111(H) 74 - 106 mg/dL [facility] CALCIUM 9.1 8.7 - 10.4 mg/dL [facility] EGFR 20(L) >60 mL/min/1.7 3m2 [facility] Comment:Estimated glomerular filtration rate calculated using the CKD-EPI refit equation. ANION GAP 11 3 - 17 mmol/L [facility] Blood 01/06/2025 6:58 AM EDT 01/06/2025 7:41 AM EDT Crystal Cho Seng PA-C LAB BLOOD ORDERABLES Fin al Result Performing Organization Address [facility]/ZIP Co de Phone Number [facility] [address] [place], [place] [id number] * (ABNORMAL) Cystatin C (01/05/2025 6:17 AM EDT) Cystatin C 2.77(H) 0.61 - 0.95 mg/L [facility] eGFR (Cystatin C) 18(L) >59 mL/min/1. 73m2 [facility] Comment: Cystatin C-based eGFR may differ substantially from creatinine-based eGFR in patients with abnormal muscle mass or acutely changing renal function. Please interpret together with relevant clinical features. Blood 01/05/2025 6:17 AM EDT 01/05/2025 6:54 AM EDT Gerber Guillermo MD LAB BLOOD ORDERABLES F inal Result Performing Organization Address [facility] de Phone Number [facility] [address] [place] [address] * (ABNORMAL) CBC and differential (01/05/2025 6:17 AM EDT) Only the most recent of2 resultswithin the time period is included. WBC 17.41(H) 4.00 - 11.00 K/uL [facility] RBC 3.04(L) 4.50 - 5.90 M/uL [facility] HGB 10.5(L) 13.5 - 17.5 g/dL [facility] HCT 31.5(L) 41.0 - 53.0 % [facility] PLT 117(L) 150 - 450 K/uL [facility] MCV 103.6(H) 80.0 - 100.0 fL [facility] MCH 34.5(H) 27.0 - 31.0 pg [facility] MCHC 33.3 32.0 - 36.0 g/dL [facility] RDW 13.0 11.5 - 14.5 % [facility] MPV 11.3 8.4 - 12.0 fL [facility] NRBC 0.00 0.00 /100 WBCs [facility] DIFF METHOD Auto [facility] NEUTS 87.9(H) 48.0 - 76.0 % [facility] LYMPHS 5.5(L) 18.0 - 41.0 % [facility] MONOS 5.7 4.0 - 11.0 % [facility] EOS 0.1 0.0 - 5.0 % [facility] BASOS 0.2 0.0 - 1.5 % [facility] Granulocytes, immature (%) 0.6 0.0 - 0.9 % [facility] ABSOLUTE NEUTS 15.30(H) 1.92 - 7.60 K/uL [facility] ABSOLUTE LYMPHS 0.96 0.72 - 4.10 K/uL [facility] ABSOLUTE MONOS 0.99 0.16 - 1.10 K/uL [facility] ABSOLUTE EOS 0.02 0.00 - 0.50 K/uL [facility] ABSOLUTE BASOS 0.04 0.00 - 0.15 K/uL [facility] Granulocytes, immature 0.10(H) 0.00 - 0.09 K/uL [facility] Blood 01/05/2025 6:17 AM EDT 01/05/2025 6:40 AM EDT us Gerber Guillermo MD LAB BLOOD ORDERABLES F inal Result Performing Organization Address City/State/[facility] Co de Phone Number [facility] [address] [place] [address] * CT ABDOMEN/PELVIS WITHOUT CONTRAST (01/05/2025 12:13 AM EDT) Anatomical Region Laterality Modality Abdomen, Pelvis Computed Tomogra phy 01/05/2025 8:06 AM EDT Impressions 01/05/2025 8:12 AM EDT 1. No acute abdominopelvic process correlating to the reported history of abdominal pain and fever. 2. Infrarenal abdominal aortic aneurysm measuring 3.4 cm. 3. Mild prostatomegaly. Narrative 01/05/2025 8:[address] ABDOMEN/PELVIS WITHOUT CONTRAST Referring clinician's provided indication for this examination in [facility]: * Abdominal pain, fever; urinary tract infection, elevated lactate, CKD TECHNIQUE: Multidetector-row CT of the abdomen and pelvis was performed without intravenous contrast using tailored dose modulation techniques. Images were reconstructed in the axial, coronal, and sagittal planes. COMPARISON: None ABSENCE OF INTRAVENOUS CONTRAST DECREASES SENSITIVITY FOR DETECTION OF FOCAL LESIONS AND VASCULAR PATHOLOGY. FINDINGS: Lower Chest: There is mild atelectasis at the lung bases. The heart size is top normal. There is no pericardial or pleural effusion. Median sternotomy wires are partially visualized. Liver: The liver density is within normal limits. No concerning hepatic lesion is detected, within noncontrast limitations. Biliary: There is no intra or extrahepatic bile duct dilation. There is no gallbladder dilation or wall thickening. No radiopaque ductal stones are seen. Spleen: The spleen size is normal. Pancreas: The pancreas demonstrates normal density and bulk, without duct dilation. Adrenal Glands: The adrenal glands are normal in size and shape. Kidneys/Ureters: The kidneys are normal in size, without hydronephrosis. Urinary tract stone is seen. Bowel: The stomach and intra-abdominal and intrapelvic loops of small and large bowel are normal in caliber. Peritoneum/Retroperitoneum: There is no ascites or free air. Lymph Nodes: There is no mesenteric or retroperitoneal lymphadenopathy. Pelvic Organs/Bladder: The bladder is mildly distended, without focal wall thickening. The prostate is mildly enlarged. Vessels: There are moderate atherosclerotic calcifications throughout the abdominal aorta. An infrarenal abdominal aortic aneurysm measures 3.4 cm (2:47). Bones/Soft Tissues: There are no osseous lesions concerning for malignancy or infection. There are moderate degenerative changes throughout the thoracolumbar spine. Procedure Note Parker Chavarria MD, PhD - 01/05/2025 CT ABDOMEN/PELVIS WITHOUT CONTRAST Referring clinician's provided indication for this examination in [facility]: *Abdominal pain, fever; urinary tract infection, elevated lactate, CKD TECHNIQUE: Multidetector-row CT of the abdomen and pelvis was performedwithout intravenous contrast using tailored dose modulation techniques.Images were reconstructed in the axial, coronal, and sagittal planes. COMPARISON: None ABSENCE OF INTRAVENOUS CONTRAST DECREASES SENSITIVITY FOR DETECTION OFFOCAL LESIONS AND VASCULAR PATHOLOGY. FINDINGS: Lower Chest: There is mild atelectasis at the lung bases. The heart sizeis top normal. There is no pericardial or pleural effusion. Mediansternotomy wires are partially visualized. Liver: The liver density is within normal limits. No concerning hepaticlesion is detected, within noncontrast limitations. Biliary: There is no intra or extrahepatic bile duct dilation. There is nogallbladder dilation or wall thickening. No radiopaque ductal stones areseen. Spleen: The spleen size is normal. Pancreas: The pancreas demonstrates normal density and bulk, without ductdilation. Adrenal Glands: The adrenal glands are normal in size and shape. Kidneys/Ureters: The kidneys are normal in size, without hydronephrosis.Urinary tract stone is seen. Bowel: The stomach and intra-abdominal and intrapelvic loops of small andlarge bowel are normal in caliber. Peritoneum/Retroperitoneum: There is no ascites or free air. Lymph Nodes: There is no mesenteric or retroperitoneal lymphadenopathy. Pelvic Organs/Bladder: The bladder is mildly distended, without focal wallthickening. The prostate is mildly enlarged. Vessels: There are moderate atherosclerotic calcifications throughout theabdominal aorta. An infrarenal abdominal aortic aneurysm measures 3.4 cm(2:47). Bones/Soft Tissues: There are no osseous lesions concerning for malignancyor infection. There are moderate degenerative changes throughout thethoracolumbar spine. IMPRESSION: 1. No acute abdominopelvic process correlating to the reported history ofabdominal pain and fever. 2. Infrarenal abdominal aortic aneurysm measuring 3.4 cm. 3. Mild prostatomegaly. Gerber Guillermo MD IMG CT ABD/PELVIS [place] Result * (ABNORMAL) POCT Glucose (01/05/2025 12:05 AM EDT) Pathologist [facility] Glucose 141(A) 70 - 100 mg/dL 01/05/2025 12:0 5 AM EDT us Gerber Guillermo MD POINT OF CARE TEST ORD ERABLES Final Result * Lactate (01/04/2025 8:30 PM EDT) Only the most recent of2 resultswithin the time period is included. Pathologist [facility] LACTIC ACID (MMOL/L) 1.5 0.5 - 1.9 mmol/L [facility] Blood 01/04/2025 8:30 PM EDT 01/04/2025 8:37 PM EDT us Tyron Joe PA-C LAB BLOOD ORDERABLES F inal Result Performing Organization Address [facility] Co de Phone Number [facility] [address] [place] [address] * Blood Culture, Routine (01/04/2025 7:53 PM EDT) Only the most recent of2 resultswithin the time period is included. Special Requests No Special Requests 01/04/2025 7:18 PM EDT [facility] BLOOD CULTURE NO GROWTH 5 DAYS 01/09/2025 7:09 AM EDT [facility] Blood (Blood) 01/04/2025 7:5 3 PM EDT 01/04/2025 8:02 PM EDT Comment:BLOOD us Tyron Joe PA-C MICROBIOLOGY - GENERAL ORDERABLES Final Result Performing Organization Address [facility] Phone Number [facility] [address] [place] [address] * XR Chest Portable (01/04/2025 7:47 PM EDT) Anatomical Region Laterality Modality Chest Computed Radiogr aphy 01/04/2025 9:2 5 PM EDT Impressions 01/04/2025 9:27 PM EDT No acute process. Narrative 01/04/2025 9:27 PM EDT XR CHEST PORTABLE COMPARISON: None FINDINGS: Devices/Tubes/Lines: None. Lungs: Bibasilar atelectasis. No focal consolidation or pulmonary edema. Pleura: No pleural effusion or pneumothorax. Heart/Mediastinum: Normal cardiomediastinal contours. Bones/Soft Tissues: No acute skeletal abnormality. Status post median sternotomy and CABG. Procedure Note William Lemus, DO - 01/04/2025 XR CHEST PORTABLE COMPARISON: None FINDINGS: Devices/Tubes/Lines: None. Lungs: Bibasilar atelectasis. No focal consolidation or pulmonary edema. Pleura: No pleural effusion or pneumothorax. Heart/Mediastinum: Normal cardiomediastinal contours. Bones/Soft Tissues: No acute skeletal abnormality. Status post mediansternotomy and CABG. IMPRESSION: No acute process. us Tyron Joe PA-C IMG XR CHEST Final Result * (ABNORMAL) Urinalysis w/reflex Urine Culture (01/04/2025 6:57 PM EDT) COLOR LT YELLOW(A) Yellow [facility] CLARITY CLOUDY(A) Clear [facility] SPECIFIC GRAVITY 1.010 1.001 - 1.030 [facility] BLOOD 1+(A) Negative [facility] BILI Negative Negative [facility] KETONES Negative Negative [facility] GLUCOSE Trace(A) Negative [facility] URINE PROTEIN 1+(A) Negative [facility] PH 5.5 5 - 8 [facility] Leukocyte esterase, ur 3+(A) Negative [facility] NITRITE Positive(A) Negative [facility] UROBILINOGEN Negative Negative [facility] RBC 4(H) 0 - 2 /hpf [facility] WBC 136(H) 0 - 9 /hpf [facility] BACTERIA Few(A) NONE SEEN /hpf [facility] SQUAMOUS CELLS 0 0 - 4 /hpf [facility] HYALINE CAST 3(H) 0 - 2 /lpf [facility] WBC CLUMPS Occasional(A ) None /hpf [facility] Urine (Urine) 01/04/2025 6:5 7 PM EDT 01/04/2025 7:13 PM EDT us Ina Watson MD URINE ORDERABLES Final Result [facility] [address] [place] [address] * (ABNORMAL) Urine Culture (01/04/2025 6:57 PM EDT) Special Requests No Special Requests Reflexed from [id number] 01/04/2025 7:29 PM EDT [facility] Urine Culture >100,000 colony forming units per mL ESCHERICHIA COLI(A) 01/06/2025 8:43 AM EDT [facility] Urine 01/04/2025 6:57 PM EDT 01/04/2025 7:13 PM EDT Narrative Organism Antibiotic Method Susceptibility Escherichia coli Ampicillin ROCIO METHOD <=8: Susceptible Escherichia coli Amoxicillin + Clavulanate ROCIO METHOD <=8/4: Susceptible Escherichia coli Ceftriaxone ROCIO METHOD <=1: Susceptible Escherichia coli Cefazolin ROCIO METHOD <=2: Susceptible Escherichia coli Cefepime ROCIO METHOD <=2: Susceptible Escherichia coli Nitrofurantoin ROCIO METHOD <=32: Susceptible Escherichia coli Gentamicin ROCIO METHOD <=4: Susceptible Escherichia coli Ampicillin + Sulbactam ROCIO METHOD <=8/4: Susceptible Escherichia coli Trimethoprim/sulfamethoxazole ROCIO MET HOD <=2/38: Susceptible Escherichia coli Piperacillin-tazobactam ROCIO METHOD <=16: Susceptible Comment: us Protocol [facility] Emergency MICROBIOLOGY - GENERAL OR DERABLES Final Result [facility] [address] [place] [address] * LFTs (hepatic panel) (01/04/2025 5:58 PM EDT) ALBUMIN 4.3 3.5 - 4.8 g/dL [facility] TOTAL BILIRUBIN 0.9 0.0 - 1.0 mg/dL [facility] DIRECT BILIRUBIN 0.3 0 - 0.4 mg/dL [facility] ALKALINE PHOSPHATASE 67 27 - 129 U/L [facility] AST 20 6 - 40 U/L [facility] ALT 14 10 - 49 U/L [facility] TOTAL PROTEIN 7.5 5.7 - 8.2 g/dL [facility] GLOBULIN 3.2 1.9 - 4.1 g/dL [facility] Blood 01/04/2025 5:58 PM EDT 01/04/2025 6:19 PM EDT us Ina Watson MD LAB BLOOD ORDERABLES Final Resu lt Performing Organization Address [facility]/ZIP Co de Phone Number [facility] [address] [place] [address] * Lab Add On: A1C (01/04/2025 5:58 PM EDT) Only the most recent of2 resultswithin the time period is included. TEST REQUESTED A1C [facility] Comments (Chemistry) ADD ON COMPLETE. [facility] 01/04/2025 5:58 PM EDT 01/05/2025 12:03 AM EDT us Gerber Guillermo MD LAB BLOOD ORDERABLES F inal Result Performing Organization Address [facility] Co de Phone Number [facility] [address] [place] [address] * (ABNORMAL) Hemoglobin A1c (01/04/2025 5:58 PM EDT) HEMOGLOBIN A1C 6.3(H) 4.3 - 5.6 % [facility] Comment: Normal 4.3-5.6% Prediabetes 5.7-6.4% Diagnostic for diabetes >6.5% CALC MEAN BLD GLUC 134 mg/dL [facility] 01/04/2025 5:58 PM EDT 01/04/2025 6:17 PM EDT us Unknown Unknown LAB BLOOD ORDERABLES Final Re sult Performing Organization Address [facility]/ZIP Co de Phone Number [facility] [address] [place] [address] * Vitamin B12 (01/04/2025 5:58 PM EDT) VITAMIN B12 494 211 - 911 pg/mL [facility] 01/04/2025 5:58 PM EDT 01/04/2025 6:19 PM EDT us Unknown Unknown LAB BLOOD ORDERABLES Final Re sult [facility] [address] [place] [address] from Last 3 Months Insurance MEDICARE PART A & B [employer] MEDEX SUPPLEMENT [employer] MEDEX SUPPLEMENT MEDICARE PART A & B [facility] MED[facility] SUPPLEMENT [employer] MEDEX SUPPLEMENT [employer] MEDEX SUPPLEMENT Member Subscriber Plan / Payer ( fective 2005-) Name:Glynn Cotton Member ID:[id number] Relation to Subscriber:Self Name:Glynn Cotton Black Subscriber ID:[id number] Payer ID:[id number] Group ID:Not on file Type:Medicare Address: [place] [address] [employer] MEDEX SUPPLEMENT MEDICARE PART A & B [employer] MEDEX SUPPLEMENT [employer] CROSS MEDEX SUPPLEMENT MEDICARE PART A & B [employer] water systems CROSS MEDEX SUPPLEMENT Advance Directives For more information, please contact: [phone] (9AM - 5PM [facility], Wednesday-Wednesday) * Full Code (Latest Code Status on File) Date Activated Date Inactivated Comments 01/04/2025 11:55 PM Question Answer Comments Code Status Confirmed With: Patient Care Teams Gaming Pit Boss Relationship Specialty Start Date End Date Camille Domínguez MD [address] [place] [address] PCP - General Internal Medicine 01/04/25 Additional Source Comments The information contained in this document represents components of the legal health record. It is not the complete legal health record.[facility]
--- OUTSIDE RECORDS SUMMARY | 2025-03-12 17:44 | XMS_ITS | Encounter Summary ---
Author Organization [facility] Address [address] [place] [address] Phone Care Team Providers Care Customer Supply Chain Analyst Name Role Phone Camille Domínguez MD Primary Care Provider [phone] Encounter Details Date Type Department Care Team (Late st Contact Info) Description 08/25/2022 Documentation Only [facility] [address] [place] [address] Mahogany Preston [address] [place] [address] Social History Tobacco Use Types Packs/Day Years [...] Visit [facility] [address] [place] [address] Sang Lai DO [address] [place] [address] documented as of this encounter Visit Diagnoses Not on filedocumented in this encounter Care Teams Customer Supply Chain Analyst Relationship Specialty Start Date End Date Camille Domínguez MD [address] [place] [address], [place] PCP - General 05/23/19 documented as of this encounter
--- OUTSIDE RECORDS SUMMARY | 2025-03-12 17:44 | XMS_ITS | Encounter Summary ---
Author Organization [facility] Address [address] [place] [address] Phone Care Team Providers Care Security Officers And Guards Name Role Phone Camille Domínguez MD Primary Care Provider [phone] Encounter Details Date Type Department Care Team (Late st Contact Info) Description 08/25/2022 Documentation Only [facility] [address] [place] [address] Sang Lai DO [address] [facility] [place] [phone] Social History Tobacco Use Types Packs/Day Years [...] Visit [facility] [address] [place] [place] [address] Sang Lai DO [address] [place] [address] documented as of this encounter Visit Diagnoses Not on filedocumented in this encounter Care Teams Security Officers And Guards Relationship Specialty Start Date End Date Camille Domínguez MD [address] [place] [address] MEDICINE [place], [place] PCP - General 05/23/19 documented as of this encounter
== END 2025-03-12 16:28 | disposition home or self-care (01) ==
LOC: HO.HKA 15:43
PROVIDERS: PCP Internal Medicine; Visit Provider Internal Medicine Nephrology
DX: N18.4 Chronic kidney disease, stage 4 (severe) (principal); I15.0 Renovascular hypertension; D63.1 Anemia in chronic kidney disease
CPT/HCPCS: 99204

== ENCOUNTER → 2025-03-12 15:42 | Outpatient (BNVA) | payer MEDICARE, SELFPAY | PROVIDERS: PCP Internal Medicine; Visit Provider Internal Medicine Nephrology | DX: I15.0 Renovascular hypertension (principal); N18.4 Chronic kidney disease, stage 4 (severe); D63.1 Anemia in chronic kidney disease | CPT/HCPCS: 99202 ==

== ENCOUNTER 2025-04-03 09:16 | Outpatient (REF) | payer MEDICARE, SELFPAY ==
--- NOTE | ~2025-04-03 | US_ITS ---
EXAMINATION: US RETROPERITONEAL LIMITED (RENAL ONLY) ULTRASOUND RENAL DOPPLER CLINICAL INFORMATION: Chronic kidney disease, stage IV.. COMPARISON: None available. TECHNIQUE: Real-time ultrasound of the kidneys using grayscale and color Doppler technique with spectral arterial Doppler analysis of the main renal arteries, the abdominal aorta at the level of the main renal arteries and segmental resistive indicis both kidneys. FINDINGS: RIGHT KIDNEY: 9 x 5 x 5 cm (SAG x AP x TRV). Increased echotexture. Renal cortical thinning. No hydronephrosis. There are several, less than 7 mm anechoic lesions throughout the corticomedullary junction. LEFT KIDNEY: 10 x 5 x 5 cm (SAG x AP x TRV). Increased echotexture. Renal cortical thinning. No hydronephrosis. Scattered small less than 7 mm anechoic lesion seen in the exophytic and cortical medullary junction. SPECTRAL DOPPLER ANALYSIS: Right Kidney: -Peak systolic velocity in the proximal right renal artery = not identified. cm/s. Normal waveforms. -Peak systolic velocity in the mid right renal artery = 87 cm/s. Normal waveforms. -Peak systolic velocity in the distal right renal artery = 109 cm/s. Normal waveforms. -Patent right renal vein. -Upper pole interlobar artery resistive index of 0.81. -Midpole interlobar artery resistive index of 0.67. -Lower pole interlobar artery resistive index of not identified. RAR right = 1.5 Left Kidney: -Peak systolic velocity in the proximal left renal artery = 135 cm/s. Normal waveforms. -Peak systolic velocity in the mid left renal artery = not identified. cm/s. Normal waveforms. -Peak systolic velocity in the distal left renal artery = 51 cm/s. Normal waveforms. -Patent left renal vein. -Upper pole interlobar artery resistive index of 0.82. -Mid pole interlobar artery resistive index of 0.75. -lower pole interlobar artery resistive index of 0.71. RAR left = 1.8 Aorta: -Peak systolic velocity = 75 cm/s. The abdominal aorta demonstrates contour irregularity with a maximum diameter in the distal aspect of 3.2 x 3.4 cm US/US renal doppler IMPRESSION: Medical renal disease without hydronephrosis. Multiple less than 7 mm simple cyst, bilaterally. No hemodynamically significant stenosis by ultrasound criteria, at either main renal artery. 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 A [email or web address] connect message delivered at 11:07 AM on April 03, 2025 to the requesting physician Dr. Meir Domínguez Electronically signed by: Ezekiel Beckwith MD 04/03/2025 11:13 AM EDT
--- NOTE | ~2025-04-03 | US_ITS ---
EXAMINATION: US RETROPERITONEAL LIMITED (RENAL ONLY) ULTRASOUND RENAL DOPPLER CLINICAL INFORMATION: Chronic kidney disease, stage IV.. COMPARISON: None available. TECHNIQUE: Real-time ultrasound of the kidneys using grayscale and color Doppler technique with spectral arterial Doppler analysis of the main renal arteries, the abdominal aorta at the level of the main renal arteries and segmental resistive indicis both kidneys. FINDINGS: RIGHT KIDNEY: 9 x 5 x 5 cm (SAG x AP x TRV). Increased echotexture. Renal cortical thinning. No hydronephrosis. There are several, less than 7 mm anechoic lesions throughout the corticomedullary junction. LEFT KIDNEY: 10 x 5 x 5 cm (SAG x AP x TRV). Increased echotexture. Renal cortical thinning. No hydronephrosis. Scattered small less than 7 mm anechoic lesion seen in the exophytic and cortical medullary junction. SPECTRAL DOPPLER ANALYSIS: Right Kidney: -Peak systolic velocity in the proximal right renal artery = not identified. cm/s. Normal waveforms. -Peak systolic velocity in the mid right renal artery = 87 cm/s. Normal waveforms. -Peak systolic velocity in the distal right renal artery = 109 cm/s. Normal waveforms. -Patent right renal vein. -Upper pole interlobar artery resistive index of 0.81. -Midpole interlobar artery resistive index of 0.67. -Lower pole interlobar artery resistive index of not identified. RAR right = 1.5 Left Kidney: -Peak systolic velocity in the proximal left renal artery = 135 cm/s. Normal waveforms. -Peak systolic velocity in the mid left renal artery = not identified. cm/s. Normal waveforms. -Peak systolic velocity in the distal left renal artery = 51 cm/s. Normal waveforms. -Patent left renal vein. -Upper pole interlobar artery resistive index of 0.82. -Mid pole interlobar artery resistive index of 0.75. -lower pole interlobar artery resistive index of 0.71. RAR left = 1.8 Aorta: -Peak systolic velocity = 75 cm/s. The abdominal aorta demonstrates contour irregularity with a maximum diameter in the distal aspect of 3.2 x 3.4 cm US/US renal BI IMPRESSION: Medical renal disease without hydronephrosis. Multiple less than 7 mm simple cyst, bilaterally. No hemodynamically significant stenosis by ultrasound criteria, at either main renal artery. 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 A [email or web address] connect message delivered at 11:07 AM on April 03, [address] the requesting physician Dr. Meir Domínguez Electronically signed by: Ezekiel Beckwith MD 04/03/2025 11:13 AM EDT
[2025-04-03 10:34] LABS: MANUAL DIFF FLAG NO
[2025-04-03 11:21] LABS: Hematocrit 31.0 % (42.0-52.0); Hemoglobin 10.3 g/dl (14.0-18.0); Imm Gran Abs Auto 0.01 X10*3/uL (0.00-0.03); Imm Gran Pct Auto 0.2 % (0.0-0.4); Lymphocytes Absolute Auto 1.5 X10*3/uL (1.2-4.9); Mean Corpuscular HGB Conc 33.2 g/dl (31.0-36.0); Mean Corpuscular Hemoglobin 35.0 pg (27.0-33.0); Mean Corpuscular Volume 105.4 fL (80.0-98.0); NRBC Abs Auto 0.000 X10*3/uL (0.0-0.012); NRBC Pct Auto 0.0 /100WBC (0.0-0.2); Platelet Count 103 X10*3/uL (160-400); Red Blood Count 2.94 X10*6/uL (4.60-5.80); White Blood Count 5.7 X10*3/uL (4.8-10.8)
--- OUTSIDE RECORDS SUMMARY | 2025-04-03 11:40 | XMS_ITS | Encounter Summary ---
Author Organization [facility] Address [address] [place] [address] Phone Care Team Providers Care Trade Embalmer Name Role Phone Camille Domínguez MD Primary Care Provider [phone] Encounter Details Date Type Department Care Team (Late st Contact Info) Description 01/18/2024 Documentation Only [facility] [address] [place] [address] Sang Lai DO [address] [facility] [place] [address] Social History Tobacco Use Types [...] Visit [facility] [address] [place] [address] Sang Lai DO [address] [facility] [place] [address] documented as of this encounter Visit Diagnoses Not on filedocumented in this encounter Care Teams Trade Embalmer Relationship Specialty Start Date End Date Camille Domínguez MD [address] [place] [address] MEDICINE [place], [place] PCP - General 05/23/19 documented as of this encounter
--- OUTSIDE RECORDS SUMMARY | 2025-04-03 11:40 | XMS_ITS | Encounter Summary ---
Author Organization [facility] Address [address] [place] [address] Phone Care Team Providers Care Knife Blade Polisher Name Role Phone Camille Domínguez MD Primary Care Provider [phone] Encounter Details Date Type Department Care Team (Late st Contact Info) Description 05/13/2023 Documentation Only [facility] [address] [place] [address] Sang Lai DO [address] [facility] [place] [phone] Social History Tobacco Use Types Packs/Day Years [...] [facility] [address] [place] [address] Sang Lai DO [address] [facility] [place] [address] documented as of this encounter Visit Diagnoses Not on filedocumented in this encounter Care Teams Knife Blade Polisher Relationship Specialty Start Date End Date Camille Domínguez MD [address] [place] [address] MEDICINE [place], [place] PCP - General 05/23/19 documented as of this encounter
--- OUTSIDE RECORDS SUMMARY | 2025-04-03 11:40 | XMS_ITS | Encounter Summary ---
Author Organization [facility] Address [address] [place] [address] Phone Care Team Providers Care Flexible Nanny Name Role Phone Camille Domínguez MD Primary Care Provider [phone] Encounter Details Date Type Department Care Team (Late st Contact Info) Description 05/27/2023 Documentation Only [facility] [address] [place] [address] Sang Lai DO [address] [facility] [place] [phone] Social History Tobacco Use Types Packs/Day Years [...] Visit [facility] [address] [place] [address] Sang Lai DO [address] [facility] [place] [address] documented as of this encounter Visit Diagnoses Not on filedocumented in this encounter Care Teams Flexible Nanny Relationship Specialty Start Date End Date Camille Domínguez MD [address] [place] [address] MEDICINE [place], [place] PCP - General 05/23/19 documented as of this encounter
--- OUTSIDE RECORDS SUMMARY | 2025-04-03 11:40 | XMS_ITS | Encounter Summary ---
Author Organization [facility] Address [address] [place] [address] Phone Care Team Providers Care Cloth Winder Name Role Phone Camille Domínguez MD Primary Care Provider [phone] Encounter Details Date Type Department Care Team (Late st Contact Info) Description 04/26/2024 Documentation Only [facility] [address] [place] [address] Sang Lai DO [address] [facility] [place] [address] Social History Tobacco Use Types [...] Visit [facility] [address] [place] [address] Sang Lai DO [address] [facility] [place] [address] documented as of this encounter Visit Diagnoses Not on filedocumented in this encounter Care Teams Cloth Winder Relationship Specialty Start Date End Date Camille Domínguez MD [address] [place] [address] MEDICINE [place], [place] PCP - General 05/23/19 documented as of this encounter
--- OUTSIDE RECORDS SUMMARY | 2025-04-03 11:40 | XMS_ITS | Encounter Summary ---
Author Organization [facility] Address [address] [place] [address] Phone Care Team Providers Care Locator Name Role Phone Camille Domínguez MD Primary Care Provider [phone] Encounter Details Date Type Department Care Team (Late st Contact Info) Description 08/30/2024 Documentation Only [facility] [address] [place] [address] Sang Lai DO [address] [facility] [place] [phone] Social History Tobacco Use Types Packs/Day Years [...] Visit [facility] [address] [address] Sang Lai DO [address] [facility] [place] [address] documented as of this encounter Visit Diagnoses Not on filedocumented in this encounter Care Teams Locator Relationship Specialty Start Date End Date Camille Domínguez MD [address] [place] [address] MEDICINE [place], [place] PCP - General 05/23/19 documented as of this encounter
--- OUTSIDE RECORDS SUMMARY | 2025-04-03 11:40 | XMS_ITS | Clinical Summary ---
Author Organization [facility] [place] [address] Care Team Providers Care Hog Confinement System Manager Name Role Phone Camille Domínguez MD Primary Care Provider [phone] Social History Tobacco Use Types Packs/Day Years [...] nts (1 - 1-dose 75+ series) 2015 Cholesterol Screening (Lipid Panel) 04/27/2024 Falls Risk Assessment 04/27/2024 Hypertension/CHF/CAD Annual BMP Blood Test 04/27/2024 Social Influencers of Health Screening 04/27/2024 Depression Screening 07/19/2024 COVID-19 Vaccine (1 - 2023-2 5 season) 2025 Influenza Vaccine (#1) 2025 HIB Vaccines Aged [...] age to complete this topic Care Teams Hog Confinement System Manager Relationship Specialty Start Date End Date Camille Domínguez MD [address] [place] [address] PCP - General 03/22/24
--- OUTSIDE RECORDS SUMMARY | 2025-04-03 11:40 | XMS_ITS | Clinical Summary ---
Author Organization [facility], Address [address] [place] [address] [place] [address] Phone Care Team Providers Care Pick Up Truck Driver Name Role Phone Camille Domínguez MD Primary Care Provider [phone] Allergies No known active allergies Medications aspirin [...] Only [facility] Access [address] [place] [phone] Laura Lopez Chronic kidney disease, stage 4 (severe) (HCC) 02/16/2025 Documentation Only [facility] [address] [place] [phone] Laura Lopez 02/12/2025 Telephone [facility] [address] [place] [phone] Laura Lopez 02/12/2025 Orders Only [facility] [address] [place] [phone] Laura Lopez Chronic kidney disease, stage 4 (severe) (HCC) (Primary Dx) 02/12/2025 Orders Only [facility] [address] [place] [phone] Laura Lopez Chronic kidney disease, stage 4 (severe) (HCC) (Primary Dx); Anemia in chronic kidney disease; Other iron deficiency anemia 02/09/2025 1:45 PM EDT Office Visit [facility] [address] [place] [phone] Sang Lai DO Other acute kidney failure (HCC) (Primary Dx); Chronic kidney disease, stage 4 (severe) (HCC); Hypertensive heart and chronic kidney disease without heart failure, with stage 1 through stage 4 chronic kidney disease, or unspecified chronic kidney disease; Persistent proteinuria; Aneurysm of aorta, not otherwise specified (HCC) 02/08/2025 Office Communication [facility] [address] [place] [phone] Christina Lockett 01/02/2025 Documentation Only [facility] [address] [place] [address] [place] [address] Laura Lopez from Last 3 Months Immunizations Immunization Administration Dates Next Due H1N1 Inj 11/01/2009 Influenza (IM) Preservative Free 06/01/2019 Influenza Split High Dose Pr eservative Free IM 04/20/2016,05/04/2015 Influenza TIV (IM) 06/02/2016 Influenza Vaccine, Quadrival ent, Adjuvanted 03/25/2020 Influenza Whole 06/02/2006 Influenza, Unspecified 04/14/2023,2021,04/09/2021,03/25,06/01/2019,04/28/2018,05/18/2017 ,05/28/2015,04/19/2014,06/13/2013,10/2011,04/28/2011,07/09/2010, 8 Moderna SARS-COV-2 12/05/2021 Pfizer SARS-COV-2 04/14/2021,09/10/2020,08/20/19 21 Pneumococcal Conjugate 13-Valent 08/13/2016,09/2016 Pneumococcal Polysaccharide 05/17/2018, 7,06/02/2006 SARS-CoV-2, Unspecified 05/12/2023,04/27/2022 [...] Visit [facility], [address] [place] [address] Sang aLi, DO [address] [facility] [place] [address] Health Maintenance Due Date Last Done Comments Diabetes: Hemoglobin A1C 09/11/2022 09/01/2021, 02/16 Diabetes: Ophthalmology Exam 09/11/2022 11/23/2017, 08/05/2016, 06/09/2016 Diabetes: Pedal Pulse Checked 09/11/2022 Diabetes: Sensory Foot Exam 09/11/2022 Diabetes: Visual Foot Exam 09/11/2022 Influenza Vaccine (#1) 2025 , 04/27/2022, 04/09/2021, Additional history exists Pneumococcal Vaccine: [...] Creatinine, Ur 174.3 Not Estab. mg/dL [facility] Albumin, Urine 740.7 Not Estab. ug/mL [facility] Comment: Results confirmed on dilution. Albumin/Creatin ine Ratio 425(H) 0 - 29 mg/g creat [facility] Comment: Normal: 0 - 29 Moderately increased: 30 - 300 Severely increased: >300 01/23/2025 3:33 PM EDT 01/23/2025 us Sang Lai DO LAB URINE ORDERABLES Final Resu lt LABTriporatiRP [facility] [address] [place] [address] * (ABNORMAL) Vitamin D 25 Hydroxy (01/23/2025 3:33 PM EDT) Vitamin D, 25-OH, Total 23.1(L) 30.0 - 100.0 ng/mL [facility] Comment: Vitamin D deficiency has been defined by the [place] of Medicine and an Endocrine Society practice guideline as a level of serum 25-OH vitamin D less than 20 ng/mL (1,2). The Endocrine Society went on to further define vitamin D insufficiency as a level between 21 and 29 ng/mL (2). 1. IOM ([place] of Medicine). 2010. Dietary reference intakes for calcium and D. [place]: The National Academies Press. 2. Urvashi MF, Rhona [place], Judith VASQUEZ, et al. Evaluation, treatment, and prevention of vitamin D deficiency: an Endocrine Society clinical practice guideline. JCEM. 2010; 96(7):1911-30. 01/23/2025 3:33 PM EDT 01/23/2025 Sang Lai DO LAB BLOOD ORDERABLES Final Resu lt LABC[facility]P [facility] [address] [place] [address] * (ABNORMAL) CBC (01/23/2025 3:33 PM EDT) WBC 5.0 3.4 - 10.8 x10E3/uL [facility] RBC 2.81(L) 4.14 - 5.80 x10E6/uL [facility] Hemoglobin 9.8(L) 13.0 - 17.7 g/dL [facility] Hematocrit 29.5(L) 37.5 - 51.0 % [facility] MCV 105(H) 79 - 97 fL [facility] MCH 34.9(H) 26.6 - 33.0 pg [facility] MCHC 33.2 31.5 - 35.7 g/dL [facility] RDW 12.9 11.6 - 15.4 % [facility] Platelets 117(L) 150 - 450 x10E3/uL [facility] 01/23/2025 3:33 PM EDT 01/23/2025 Sang Lai DO LAB BLOOD ORDERABLES Final Resu lt [facility]Single[facility] [address] [place] [address] * (ABNORMAL) PTH, Intact (01/23/2025 3:33 PM EDT) PTH 144(H) 15 - 65 pg/mL [facility] 01/23/2025 3:33 PM EDT 01/23/2025 Sang [email or web address] LAB BLOOD ORDERABLES Final Resu lt Performing Organization Address [facility]/ZIP Co de Phone Number LABCO [facility] [address] [place] [address] * (ABNORMAL) Renal Function Panel (01/23/2025 3:33 PM EDT) Glucose 99 70 - 99 mg/dL [facility] BUN 49(H) 8 - 27 mg/dL [facility] Creatinine 3.54(H) 0.76 - 1.27 mg/dL [facility] eGFR CKD-EPI CR 2020 16(L) >59 mL/min/1.7 3 [facility] BUN/Creatinine Ratio 14 10 - 24 [facility] Sodium 138 134 - 144 mmol/L [facility] Potassium 4.5 3.5 - 5.2 mmol/L [facility] Chloride 102 96 - 106 mmol/L [facility] Bicarbonate (CO2) 21 20 - 29 mmol/L [facility] Calcium 8.8 8.6 - 10.2 mg/dL [facility] Albumin 3.9 3.7 - 4.7 g/dL [facility] Phosphorus 3.6 2.8 - 4.1 mg/dL [facility] 01/23/2025 3:33 PM EDT 01/23/2025 Sang [facility] LAB BLOOD ORDERABLES Final Resu lt Performing Organization Address City/[facility]/ZIP Co de Phone Number [facility] [address] [place] [address] * (ABNORMAL) Hemoglobin A1c (09/01/2021 7:55 AM EST) Hemoglobin A1C 6.2(H) (4.0-5.6) % [facility] Comment: MONITORING: In known diabetic patients, hemoglobin A1c targets should be discussed with health care provider. DIAGNOSTIC USE: The [place] Diabetes Association (ADA) and the World Health [...] Supplement 1 Testing performed or reported by [facility], a Service of [facility], [address] [place] [address] Scotty Castelan MD, Business Data Analyst [facility]# [id number] Blood specimen (specimen) Venous blood / Unknown 09/01/2021 7:55 AM EST 09/01/2021 8:00 AM EST Sang Lai LAB BLOOD ORDERABLES Final Resu lt Performing Organization Address City/[facility]/ZIP Co de Phone Number [facility] from Last 3 Months or Most Recently Relevant to Health Maintenance Insurance [facility] Medicare Care Teams Pick Up Truck Driver Relationship Specialty Start Date End Date Camille Domínguez MD [address] [place], [place] PCP - General 05/23/19
--- OUTSIDE RECORDS SUMMARY | 2025-04-03 11:40 | XMS_ITS | Encounter Summary ---
Author Organization [facility] [place], Address [address] [place] [address] Phone Care Team Providers Care Expander Name Role Phone Camille Domínguez MD Primary Care Provider [phone] Encounter Details Date Type Department Care Team (Late Contact Info) Description 09/10/2019 Orders Only [facility] [address] [place] [address] Sang Lai DO [address] [facility] [place] [address] Benign prostatic hypertrophy without outflow [...] Visit [facility] [place], [address] [facility] [place] [address] Sang Lai DO [address] [facility] [place] [address] documented as of this encounter Visit Diagnoses Diagnosis Benign prostatic hypertrophy without outflow obstruction documented in this encounter Care Teams Expander Relationship Specialty Start Date End Date Camille Domínguez MD [address] [facility] MEDICINE [place], [place] PCP - General 05/23/19 documented as of this encounter
--- OUTSIDE RECORDS SUMMARY | 2025-04-03 11:40 | XMS_ITS | Encounter Summary ---
Author Organization [facility] [place], Address [address] [place] [address] Phone Care Team Providers Care Senior Budget Analyst Name Role Phone Camille Domínguez MD Primary Care Provider [phone] Encounter Details Date Type Department Care Team (Late Contact Info) Description 02/23/2025 Orders Only [facility] - V[facility] Access Center [address] [facility] [address] [place] [address] Laura Lopez [address] [place] [phone] Chronic kidney disease, stage 4 (severe) (HCC) [...] Visit [facility] [address] [place] [address] Sang Lai DO [address] [facility] [place] [address] documented as of this encounter Visit Diagnoses Diagnosis Chronic kidney disease, stage 4 (severe) (HCC) documented in this encounter Care Teams Senior Budget Analyst Relationship Specialty Start Date End Date Camille Domínguez MD [address] [place], [place] PCP - General 05/23/19 documented as of this encounter
--- OUTSIDE RECORDS SUMMARY | 2025-04-03 11:40 | XMS_ITS | Encounter Summary ---
Author Organization [facility] Address [address] [place] [address] Phone Care Team Providers Care Erection Shop Supervisor Name Role Phone Camille Domínguez MD Primary Care Provider [phone] Encounter Details Date Type Department Care Team (Late st Contact Info) Description 12/05/2024 Orders Only [facility] Center [address] [place] [address] Laura Lopez [address] [place] [phone] Chronic kidney disease, stage 4 (severe) (HCC) [...] Visit [facility] [address] [place] [address] Sang Lai [address] [facility] [address] [place] [address] Scheduled Orders Name Type Priority Associated Diagnoses Orde r Schedule Urine Albumin / Creatinine Ratio Lab Routine Chronic kidney disease, stage 4 (severe) (HCC) Every 12 Weeks for 4 Occurrences starting 12/05/2024 until 01/05/2026 documented as of this encounter Visit Diagnoses Diagnosis Chronic kidney disease, stage 4 (severe) (HCC)- Primary documented in this encounter Care Teams Erection Shop Supervisor Relationship Specialty Start Date End Date Camille Domínguez MD [address] [place], [place] PCP - General 05/23/19 documented as of this encounter
--- OUTSIDE RECORDS SUMMARY | 2025-04-03 11:42 | XMS_ITS | Encounter Summary ---
Author Organization [facility] Address [address] [facility] [address] [place] [address] Phone Care Team Providers Care Air Conditioning Insulation Installer Name Role Phone Camille Domínguez MD Primary Care Provider [phone] Encounter Details Date Type Department Care Team (Late st Contact Info) Description 01/04/2025 Procedure Pass [facility] Emergency Department, [facility] [address] [place] [address] Social History Tobacco Use Types Packs/Day Years [...] 2:30 AM EDT Emmanuelle Marti RN * Hubbard Suicide Severity Rating Scale (Screener/Recent Self-Report) Question [...] on filedocumented in this encounter Care Teams Air Conditioning Insulation Installer Relationship Specialty Start Date End Date Camille Domí[place] [address] [place] [address] PCP - General Internal Medicine 01/04/25 documented as of this encounter Additional Source Comments The information contained in this document represents components of the legal health record. It is not the complete legal health record.[facility]
--- OUTSIDE RECORDS SUMMARY | 2025-04-03 11:42 | XMS_ITS | Encounter Summary ---
Author Organization [facility] Address [address] [place] [address] Phone Care Team Providers Care Neon Sign Worker Name Role Phone Camille Domínguez MD Primary Care Provider Encounter Details Date Type Department Care Team (Late st Contact Info) Description 08/25/2022 Documentation Only [facility] [address] [place] [address] Sang Lai DO [address] [facility] [address] [place] [phone] Social History Tobacco Use Types Packs/Day Years [...] Visit [facility] [address] [place] [address] Sang Lai DO [address] [facility] [place] [address] documented as of this encounter Visit Diagnoses Not on filedocumented in this encounter Care Teams Neon Sign Worker Relationship Specialty Start Date End Date Camille Domínguez MD [address] [place] [address] MEDICINE [place], [place] PCP - General 05/23/19 documented as of this encounter
--- OUTSIDE RECORDS SUMMARY | 2025-04-03 11:42 | XMS_ITS | Encounter Summary ---
Author Organization [facility], Address [address] [place] [address] Phone Care Team Providers Care Cradle Slide Maker Name Role Phone Camille Domínguez MD Primary Care Provider [phone] Reason for Visit * Reason Comments Med Refill Encounter Details Date Type Department Care Team (Late Contact Info) Description 01/22/2020 Refill [facility] [address] [place] [address] Sang Lai DO [address] [facility] [place] [address] Social History Tobacco Use Types [...] Office Visit [facility], [address] [facility] [place] [address] Sang Lai DO [address] [facility] [place] [address] documented as of this encounter Visit Diagnoses Not on filedocumented in this encounter Care Teams Cradle Slide Maker Relationship Specialty Start Date End Date Camille Domínguez MD [address] [place], [place] PCP - General 05/23/19 documented as of this encounter
--- OUTSIDE RECORDS SUMMARY | 2025-04-03 11:42 | XMS_ITS | Encounter Summary ---
Author Organization [facility] Address [address] [place] [address] Phone Care Team Providers Care Brick Carrier Name Role Phone Camille Domínguez MD Primary Care Provider [phone] Encounter Details Date Type Department Care Team (Late st Contact Info) Description 08/25/2022 Documentation Only [facility] [address] [place] [place] [address] Mahogany Preston [address] [place] [address] Social History Tobacco Use Types [...] Visit [facility] [address] [place] [place] [address] Sang Lai DO [address] [place] [address] documented as of this encounter Visit Diagnoses Not on filedocumented in this encounter Care Teams Brick Carrier Relationship Specialty Start Date End Date Camille Domínguez MD [address] [place] [address], [place] PCP - General 05/23/19 documented as of this encounter
[2025-04-03 12:04] LABS: HBc Num1 8.39 S/CO (0.00-0.79); ~HepC Num1 0.22 S/CO (0.00-0.79); ~Hepatitis C Antibody Nonreactive (Nonreactive)
[2025-04-03 12:10] LABS: Parathyroid Hormone Intact 160.8 pg/mL (8.7-77.1)
[2025-04-03 12:11] LABS: Anion Gap 12 (12-20); Blood Urea Nitrogen 44 mg/dL (9-16); Calcium 9.2 mg/dL (8.4-10.2); Carbon Dioxide 24 mmol/L (22-29); Chloride 111 mmol/L (96-108); Estimated Glomerular Filt Rate 16; Ferritin 244 ng/mL (20-250); Iron 110 mcg/dL (45-160); Percent Iron Saturation 54 % (15-50); Potassium 4.6 mmol/L (3.3-5.1); Sodium 142 mmol/L (135-145); Total Iron Binding Capacity 204 mcg/dL (228-428); Unsaturated Iron Binding 94 ug/dL
[2025-04-05 04:37] LABS: HBc Num2 8.27 S/CO; HBc Num3 8.45 S/CO
[2025-04-05 20:53] LABS: Anti Glomerular Basement Memb <1.0 AI; Proteinase 3 PR3 Antibodies <1.0 AI
[2025-04-06 05:18] LABS: Hepatitis B Core Antibody IgM NON-REACTIVE (NON-REACTIVE)
[2025-04-10 13:39] LABS: Phospholipase A2 IgG ELISA <4 RU/mL; Phospholipase A2 IgG IFA NEGATIVE (NEGATIVE)
== END 2025-04-03 09:17 | disposition home or self-care (01) ==
LOC: HO.US 09:16
PROVIDERS: PCP Internal Medicine; Visit Provider Internal Medicine Nephrology
DX: Z01.84 Encounter for antibody response examination (principal); I12.9 Hypertensive chronic kidney disease with stage 1 through stage 4 chronic kidney disease, or unspecified chronic kidney disease; N18.4 Chronic kidney disease, stage 4 (severe); D63.1 Anemia in chronic kidney disease
CPT/HCPCS: 36415; 76775; 80051; 82306; 82310; 82565; 82728; 82784; 83520; 83540; 83970; 84520; 85025; 86021; 86255; 86334; 86704; 86705; 86803; 93975

== ENCOUNTER → 2025-04-03 09:18 | Outpatient (BNV) | payer MEDICARE, SELFPAY | PROVIDERS: PCP Internal Medicine; Visit Provider Radiology Diagnostic Radiology | DX: I71.40 Abdominal aortic aneurysm, without rupture, unspecified (principal) | CPT/HCPCS: 93975 ==

== ENCOUNTER 2025-04-10 15:00 | Outpatient (AMB) | payer MEDICARE, SELFPAY ==
--- NOTE | 2025-04-10 15:11 | HO.NEPHOV_ITS ---
Vital Signs 04/10/25 15:12 Height 5 ft 2 in Weight 150 lb 6 oz BMI 27.5 BP 150/62 H Blood Pressure Location Lt brachial Position Sitting Pulse 49 L Pulse Source Pulse Oximeter Pulse Oximetry (%) 97 Oxygen Delivery Method Room Air Intake Visit Reasons: 1mon f/u w/labs-Conf Special Needs Child Caregiver Required: No Accompanied by: Self / Same As Patient Allergies No Known Allergies Allergy (Verified 04/10/25 15:12) HPI Comments Details: Mr Cotton was seen in follow up of his CKD. He is known to have vascular disease including CAD needing CABG. He has mild ascending aortic dialatation. He also has H/O DM, HTN and gout. He had GFR of 30 mls/mt for some time which has worsened recently to 15 mls/mt. He is on multiple anti hypertensive medications including ARB. He denies CHF, CVA or PAD. He does not have any new bone or back pain. He does not take excess NSAID's . He denies Chest pain, SOB, PND, orthopnea or uremic symptoms. His BP is at goal at home. He never had renal biopsy. [facility] Medical History (Updated 04/10/25 @ 20:16 by Meir Domínguez MD) Obstructive sleep apnea syndrome Mild ascending aorta dilatation Hypertension HLD (hyperlipidemia) Helicobacter pylori (H. pylori) Gout Diabetes mellitus Chronic kidney disease, stage 4 (severe) CAD (coronary artery disease), [place] coronary artery Adult hypothyroidism Surgical History H/O colonoscopy S/P CABG x 4 Social History Alcohol intake: never Patient Tobacco Use Status: Never used Tobacco Review of Systems Const All systems reviewed & are unremarkable except as noted in HPI and below Physical Exam Vital Signs: Last Vital Signs Pulse 49 L 04/10/25 15:12 BP 150/62 H 04/10/25 15:12 Pulse Ox 97 04/10/25 15:12 Oxygen Delivery Method Room Air 04/10/25 15:12 BMI result Body Mass Index 27.5 Const General: comfortable and no acute distress Orientation/consciousness: patient oriented x3 HEENT Head: Yes normocephalic Mouth: Normal oral and palatal mucosa present Eyes EOM: EOMs intact bilaterally Neck Neck: Yes supple Resp Auscultation: clear to auscultation bilaterally Cardio Jugular venous distension: no JVD Rate: regular rate GI Palpation (GI): Soft to palpation Auscultation: normal bowel sounds General: Yes no CVA tenderness Back/Spine/Pelvis Back: no CVA tenderness Skin General skin exam: no rashes or lesions noted Neuro General: patient oriented x3 and moves all extremities Extrem General: Yes no pedal edema Results Reviewed Nephrology Results: Hgb, (14.0-18.0) 10.3 g/dl L 04/03/25 WBC, (4.8-10.8) 5.7 X10*3/uL 04/03/25 Plt Count, (160-400) 103 X10*3/uL L 04/03/25 Sodium, (135-145) 142 mmol/L 04/03/25 Potassium, (3.3-5.1) 4.6 mmol/L 04/03/25 Chloride, (96-108) 111 mmol/L H 04/03/25 Carbon Dioxide, (22-29) 24 mmol/L 04/03/25 BUN, (9-16) 44 mg/dL H 04/03/25 Creatinine, (0.5-1.4) 3.73 mg/dL H 04/03/25 Calcium, (8.4-10.2) 9.2 mg/dL 04/03/25 PTH Intact, (8.7-77.1) 160.8 pg/mL H 04/03/25 Renal US 04/03/25 Assessment & Plan Assessment & Plan (1) Chronic kidney disease, stage 4 (severe): Code(s): N18.4 - Chronic kidney disease, stage 4 (severe) Category: Medical (2) Hypertension: Code(s): I10 - Essential (primary) hypertension Category: Medical Qualifiers: Hypertension type: renovascular hypertension Qualified Code(s): I15.0 - Renovascular hypertension (3) Anemia in chronic kidney disease: Code(s): N18.9 - Chronic kidney disease, unspecified; D63.1 - Anemia in chronic kidney disease Category: Medical Qualifiers: Chronic kidney disease stage: stage 4 (GFR 15-29) Qualified Code(s): N18.4 - Chronic kidney disease, stage 4 (severe); D63.1 - Anemia in chronic kidney disease (4) Secondary hyperparathyroidism (of renal origin): Code(s): N25.81 - Secondary hyperparathyroidism of renal origin Category: Medical Plan Mr Cotton has advanced CKD likely due to vascular disease. He is on losartan 50 mg daily. His BP is at goal at home. 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 I have reviewed his CKD W/U. He will need activated Vitamin D soon. I ordered 24 hour urine for cr clearance. I may back off on ARB to see whether he will have some improvement in GFR. He will need continued adjustment of BP medications and initiation of Procrit , which I plan to do based on evolving data. He should cut back Na in diet and avoid NSAID's. All questions answered. F/U given in 1 month Orders: Orders Creatinine Today N18.4 - Chronic kidney disease, stage 4 (severe) Blood Urea Nitrogen Today N18.4 - Chronic kidney disease, stage 4 (severe) Electrolytes Today N18.4 - Chronic kidney disease, stage 4 (severe) Creatinine Clearance Urine 24U Today N18.4 - Chronic kidney disease, stage 4 (severe) Coding Level of Care Code Est Pt Level 4 (06533) Diagnoses Chronic kidney disease, stage 4 (severe) N18.4 Renovascular hypertension I15.0 Hypertension type: renovascular hypertension Anemia in stage 4 chronic kidney disease N18.4; D63.1 Chronic kidney disease stage: stage 4 (GFR 15-29) Secondary hyperparathyroidism (of renal origin) N25.81
[2025-04-10 15:12] VITALS: BP 150/62; PULSE 49; O2SAT 97; BMI 27.5
--- OUTSIDE RECORDS SUMMARY | 2025-04-10 18:02 | XMS_ITS | Encounter Summary ---
Author Organization [facility] [place], Address [address] [place] [address] Phone Care Team Providers Care Environmental Protection Inspector Name Role Phone Camille oDmínguez MD Primary Care Provider [phone] Reason for Visit * Reason Comments Med Refill Encounter Details Date Type Department Care Team (Late Contact Info) Description 01/22/2020 Refill [facility] [address] [place] [address] Sang Lai DO [address] [place] [address] Social History Tobacco Use Types [...] Office Visit [facility], [address] [place] [address] Sang Lai DO [address] [place] [address] documented as of this encounter Visit Diagnoses Not on filedocumented in this encounter Care Teams Environmental Protection Inspector Relationship Specialty Start Date End Date Camille Domínguez MD [address] [place], [place] PCP - General 05/23/19 documented as of this encounter
--- OUTSIDE RECORDS SUMMARY | 2025-04-10 18:02 | XMS_ITS | Encounter Summary ---
Author Organization [facility] Address [address] [place] [address] Phone Care Team Providers Care Education Coordinator Name Role Phone Camille Domínguez MD Primary Care Provider [phone] Encounter Details Date Type Department Care Team (Late st Contact Info) Description 05/27/2023 Documentation Only [facility] [address] [address] Sang Lai DO [address] [place] [address] Social History Tobacco Use Types [...] Visit [facility] [address] [place] [address] Sang Lai DO [address] [place] [address] documented as of this encounter Visit Diagnoses Not on filedocumented in this encounter Care Teams Education Coordinator Relationship Specialty Start Date End Date Camille Domínguez MD [address] [place] [address] MEDICINE [place], [place] PCP - General 05/23/19 documented as of this encounter
--- OUTSIDE RECORDS SUMMARY | 2025-04-10 18:02 | XMS_ITS | Encounter Summary ---
Author Organization [facility] [place], Address [address] [place] [address] Phone Care Team Providers Care Aerospace Project Engineer Name Role Phone Camille Domínguez MD Primary Care Provider [phone] Encounter Details Date Type Department Care Team (Late Contact Info) Description 02/23/2025 Orders Only [facility] [address] [place] [address] Laura Lopez [address] [place] [phone] Chronic kidney disease, stage 4 (severe) (HCC) [...] Visit [facility] [address] [place] [address] Sang Lai DO [address] [place] [address] documented as of this encounter Visit Diagnoses Diagnosis Chronic kidney disease, stage 4 (severe) (HCC) documented in this encounter Care Teams Aerospace Project Engineer Relationship Specialty Start Date End Date Camille Domínguez MD [address] [place], [place] PCP - General 05/23/19 documented as of this encounter
--- OUTSIDE RECORDS SUMMARY | 2025-04-10 18:02 | XMS_ITS | Encounter Summary ---
Author Organization [facility] Address [address] [place] [address] Phone Care Team Providers Care Site Surveyor Name Role Phone Camille Domínguez MD Primary Care Provider [phone] Encounter Details Date Type Department Care Team (Late st Contact Info) Description 12/05/2024 Orders Only [facility] [address] [place] [address] Laura Lopez [address] [place] [phone] Chronic kidney disease, stage 4 (severe) (HCC) [...] Visit [facility] [address] [place] [address] Sang Lia [address] [place] [address] Scheduled Orders Name Type Priority Associated Diagnoses Orde r Schedule Urine Albumin / Creatinine Ratio Lab Routine Chronic kidney disease, stage 4 (severe) (HCC) Every 12 Weeks for 4 Occurrences starting 12/05/2024 until 01/05/2026 documented as of this encounter Visit Diagnoses Diagnosis Chronic kidney disease, stage 4 (severe) (HCC)- Primary documented in this encounter Care Teams Site Surveyor Relationship Specialty Start Date End Date Camille Domínguez MD [address] [place], [place] PCP - General 05/23/19 documented as of this encounter
--- OUTSIDE RECORDS SUMMARY | 2025-04-10 18:02 | XMS_ITS | Encounter Summary ---
Author Organization [facility] Address [address] [place] [address] Phone Care Team Providers Care Outboard Motorboat Rigger Name Role Phone Camille Domínguez MD Primary Care Provider [phone] Encounter Details Date Type Department Care Team (Late st Contact Info) Description 05/13/2023 Documentation Only [facility] [address] [place] [address] Sang Lai DO [address] [place] [phone] Social History Tobacco Use Types Packs/Day Years [...] Visit [facility] [address] [place] [address] Sang Lai DO [address] [place] [address] documented as of this encounter Visit Diagnoses Not on filedocumented in this encounter Care Teams Outboard Motorboat Rigger Relationship Specialty Start Date End Date Camille Domínguez MD [address] [place] [address] MEDICINE [place], [place] PCP - General 05/23/19 documented as of this encounter
--- OUTSIDE RECORDS SUMMARY | 2025-04-10 18:02 | XMS_ITS | Clinical Summary ---
Author Organization [facility] Address [address] [place] [address] Phone Care Team Providers Care Metal Buffer Name Role Phone Camille Domínguez MD Primary Care Provider [phone] Allergies No known active allergies Medications METOPROLOL [...] Units by mouth daily. Active Ca cit-D3-mag#11-z zer-mrrj-vwa-aaliyah r (CALTRATE 600+D) 600 mg calcium- 800 unit-50 mg Tab Take 1 tablet by mouth daily. Active omega 7-ttu-vey-fish oil 1,000 mg (120 mg-180 mg) Cap [...] Hypercholesterolemia Hypothyroidism 10/05/2012 Overview (09/08/2014): Thyroid disease Family History Medical History Relation Comments Glaucoma [...] VACCINE (1 - 1-dose 75+ series) 2015 INFLUENZA VACCINE (#1) 2025 03/25/2020 COVID-19 VACCINE (3 - 2024-2 6 season) 2025 09/10/2020, 08/20/2020 CREATININE LEVEL 01/06/2026 01/06/2025, 01/05/2025, [...] Procedure Name Priority Date/Time Associated Diagnosis Comments BASIC METABOLIC PANEL Routine 01/06/2025 6:58 AM EDT from Last 3 Months or Most Recently Relevant to Health Maintenance Results * (ABNORMAL) Basic metabolic panel (01/06/2025 6:58 AM EDT) SODIUM 139 136 - 145 mmol/L [facility] CHLORIDE 105 95 - 106 mmol/L [facility] POTASSIUM 4.4 3.5 - 5.2 mmol/L [facility] CO2 23 20 - 31 mmol/L [facility] BUN 45(H) 9 - 23 mg/dL [facility] CREATININE 2.94(H) 0.50 - 1.30 mg/dL [facility] GLUCOSE 111(H) 74 - 106 mg/dL [facility] CALCIUM 9.1 8.7 - 10.4 mg/dL [facility] EGFR 20(L) >60 mL/min/1.7 3m2 [facility] Comment:Estimated glomerular filtration rate calculated using the CKD-EPI refit equation. ANION GAP 11 3 - 17 mmol/L [facility] Blood 01/06/2025 6:58 AM EDT 01/06/2025 7:41 AM EDT us Crystal Ellsworth PA-C LAB BLOOD ORDERABLES Fin al Result [facility] [address] [place], [place] [phone] from Last 3 Months or Most Recently Relevant to Health Maintenance Insurance MEDICARE PART A & B [employer] MEDEX SUPPLEMENT MEDICARE PART A & B [employer] [place] [address] MEDICARE PART A & B [employer] MEDEX SUPPLEMENT MEDICARE PART A & B Member Subscriber Plan / Payer ( fective 2005-Present) Name:Glynn Cotton Member ID:[id number] Relation to Subscriber:Self Name:Glynn Cotton Subscriber ID:[id number] Payer ID:[id number] Group ID:Not on file Type:Medicare Address: [address] al[employer] MEDEX SUPPLEMENT MEDICARE PART A & B [employer] MEDEX SUPPLEMENT MEDICARE PART A & B [employer] MEDEX SUPPLEMENT MEDICARE PART A & B [employer] MED[employer] SUPPLEMENT MEDICARE PART A & B [employer] MEDEX SUPPLEMENT MEDICARE PART A & B [employer] MEDEX SUPPLEMENT Advance Directives For more information, please contact: [phone] (9AM - 5PM [facility], Wednesday-Wednesday) * Full Code (Latest Code Status on File) Date Activated Date Inactivated Comments 01/04/2025 11:55 PM Question Answer Comments Code Status Confirmed With: Patient Care Teams Metal Buffer Relationship Specialty Start Date End Date Camille Domínguez MD [address] [place] [address] PCP - General Internal Medicine 01/04/25 Additional Source Comments The information contained in this document represents components of the legal health record. It is not the complete legal health record.[facility]
--- OUTSIDE RECORDS SUMMARY | 2025-04-10 18:02 | XMS_ITS | Encounter Summary ---
Author Organization [facility] Address [address] [place] [address] Phone Care Team Providers Care Biodiesel Engineering Manager Name Role Phone Camille Domínguez MD Primary Care Provider [phone] Encounter Details Date Type Department Care Team (Late st Contact Info) Description 04/26/2024 Documentation Only [facility] [address] [place] [address] Sang Lai DO [address] [facility] [address] [place] [address] Social History Tobacco Use Types [...] [facility] [address] [place] [address] Sang Lai DO [address] [place] [address] documented as of this encounter Visit Diagnoses Not on filedocumented in this encounter Care Teams Biodiesel Engineering Manager Relationship Specialty Start Date End Date Camille Domínguez MD [address] [place] [address] MEDICINE [place], [place] PCP - General 05/23/19 documented as of this encounter
--- OUTSIDE RECORDS SUMMARY | 2025-04-10 18:02 | XMS_ITS | Encounter Summary ---
Author Organization [facility] Address [address] [place] [address] Phone Care Team Providers Care Loss Prevention Guard Name Role Phone Camille Domínguez MD Primary Care Provider [phone] Encounter Details Date Type Department Care Team (Late st Contact Info) Description 01/18/2024 Documentation Only [facility] [address] [place] [address] Sang Lai DO [address] [place] [address] Social History Tobacco Use Types [...] Visit [facility] [address] [place] [address] Sang Lai DO [address] [place] [address] documented as of this encounter Visit Diagnoses Not on filedocumented in this encounter Care Teams Loss Prevention Guard Relationship Specialty Start Date End Date Camille Domínguez MD [address] [place] [address] MEDICINE [place], [place] PCP - General 05/23/19 documented as of this encounter
--- OUTSIDE RECORDS SUMMARY | 2025-04-10 18:02 | XMS_ITS | Encounter Summary ---
Author Organization [facility] Address [address] [place] [address] Phone Care Team Providers Care School Psychometrist Name Role Phone Camille Domínguez MD Primary Care Provider [phone] Encounter Details Date Type Department Care Team (Late st Contact Info) Description 08/25/2022 Documentation Only [facility] [address] [place] [address] Sang Lai DO [address] [facility] [place] [phone] Social History Tobacco Use Types Packs/Day Years [...] Visit [facility] [address] [place] [address] Sang Lai DO [address] [facility] [place] [address] documented as of this encounter Visit Diagnoses Not on filedocumented in this encounter Care Teams School Psychometrist Relationship Specialty Start Date End Date Camille Domínguez MD [address] [place] [address] MEDICINE [place], [place] PCP - General 05/23/19 documented as of this encounter
--- OUTSIDE RECORDS SUMMARY | 2025-04-10 18:02 | XMS_ITS | Clinical Summary ---
Author Organization [facility] [place], Address [address] [place] [address] [place] [address] Phone Care Team Providers Care Chief Credit Officer Name Role Phone Camille Domínguez MD Primary Care Provider [phone] Allergies No known active allergies Medications aspirin [...] [facility] Vascular Access [address] [place] [phone] Laura Lopez Chronic kidney disease, stage 4 (severe) (HCC) 02/16/2025 Documentation Only [facility] [address] [place] [phone] Laura Lopez 02/12/2025 Telephone [facility] [address] [place] [phone] Laura Lopez 02/12/2025 Orders Only [facility] [address] [place] [phone] Laura Lopez Chronic kidney disease, stage 4 (severe) (HCC) (Primary Dx) 02/12/2025 Orders Only [facility] [address] [place] [phone] Laura Lopez Chronic kidney disease, stage 4 (severe) (HCC) (Primary Dx); Anemia in chronic kidney disease; Other iron deficiency anemia 02/09/2025 1:45 PM EDT Office Visit [facility] [address] [place] [phone] Sang Lai DO Other acute kidney failure (HCC) (Primary Dx); Chronic kidney disease, stage 4 (severe) (HCC); Hypertensive heart and chronic kidney disease without heart failure, with stage 1 through stage 4 chronic kidney disease, or unspecified chronic kidney disease; Persistent proteinuria; Aneurysm of aorta, not otherwise specified (HCC) 02/08/2025 Office Communication [facility] [address] [place] [phone] Levy Christina from Last 3 Months Immunizations Immunization Administration [...] Visit [facility] [place], [address] [place] [address] Sang Lai, [address] [facility] [place] [address] Health Maintenance Due Date Last Done [...] Creatinine, Ur 174.3 Not Estab. mg/dL [facility] Albumin, Urine 740.7 Not Estab. ug/mL [facility] Comment: Results confirmed on dilution. Albumin/Creatin ine Ratio 425(H) 0 - 29 mg/g creat [facility] Comment: Normal: 0 - 29 Moderately increased: 30 - 300 Severely increased: >300 01/23/2025 3:33 PM EDT 01/23/2025 us Sang Lai DO LAB URINE ORDERABLES Final Resu lt [employer] [address] [place] [address] * (ABNORMAL) Vitamin D 25 Hydroxy (01/23/2025 3:33 PM EDT) Vitamin D, 25-OH, Total 23.1(L) 30.0 - 100.0 ng/mL [facility] Comment: Vitamin D deficiency has been defined by the [place] of Medicine and an Endocrine Society practice guideline as a level of serum 25-OH vitamin D less than 20 ng/mL (1,2). The Endocrine Society went on to further define vitamin D insufficiency as a level between 21 and 29 ng/mL (2). 1. IOM ([place] of Medicine). 2010. Dietary reference intakes for calcium and D. [place]: The National Academies Press. 2. Urvashi MF, Rhona MOSS, Judith VASQUEZ, et al. Evaluation, treatment, and prevention of vitamin D deficiency: an Endocrine Society clinical practice guideline. JCEM. 2010; 96(4):1911-30. 01/23/2025 3:33 PM EDT 01/23/2025 Sang Lai DO LAB BLOOD ORDERABLES Final Resu lt [facility] [address] [place] [address] * (ABNORMAL) CBC (01/23/2025 3:33 PM EDT) WBC 5.0 3.4 - 10.8 x10E3/uL [facility] RBC 2.81(L) 4.14 - 5.80 x10E6/uL [facility] Hemoglobin 9.8(L) 13.0 - 17.7 g/dL [facility] Hematocrit 29.5(L) 37.5 - 51.0 % [facility] MCV 105(H) 79 - 97 fL [facility] MCH 34.9(H) 26.6 - 33.0 pg [facility] MCHC 33.2 31.5 - 35.7 g/dL [facility] RDW 12.9 11.6 - 15.4 % [facility] Platelets 117(L) 150 - 450 x10E3/uL [facility] 01/23/2025 3:33 PM EDT 01/23/2025 Sang Lai DO LAB BLOOD ORDERABLES Final Resu lt [facility] [address] [place] [address] * (ABNORMAL) PTH, Intact (01/23/2025 3:33 PM EDT) PTH 144(H) 15 - 65 pg/mL [facility] 01/23/2025 3:33 PM EDT 01/23/2025 Sang Lai DO LAB BLOOD ORDERABLES Final Resu lt [facility] [address] [place] [address] * (ABNORMAL) Renal Function Panel (01/23/2025 3:33 PM EDT) Pathologist [facility] Glucose 99 70 - 99 mg/dL [facility] BUN 49(H) 8 - 27 mg/dL [facility] Creatinine 3.54(H) 0.76 - 1.27 mg/dL [facility] eGFR CKD-EPI CR 2020 16(L) >59 mL/min/1.7 3 [facility] BUN/Creatinine Ratio 14 10 - 24 [facility] Sodium 138 134 - 144 mmol/L [facility] Potassium 4.5 3.5 - 5.2 mmol/L [facility] Chloride 102 96 - 106 mmol/L [facility] Bicarbonate (CO2) 21 20 - 29 mmol/L [facility] Calcium 8.8 8.6 - 10.2 mg/dL [facility] Albumin 3.9 3.7 - 4.7 g/dL [facility] Phosphorus 3.6 2.8 - 4.1 mg/dL [facility] 01/23/2025 3:33 PM EDT 01/23/2025 Sang Lai DO LAB BLOOD ORDERABLES Final Resu lt [facility] [address] [place] [address] * (ABNORMAL) Hemoglobin A1c (09/01/2021 7:55 AM EST) Hemoglobin A1C 6.2(H) (4.0-5.6) % [facility] Comment: MONITORING: In known diabetic patients, hemoglobin A1c targets should be discussed with health care provider. DIAGNOSTIC USE: The [place] Diabetes Association (ADA) and the World Health [...] Supplement 1 Testing performed or reported by [facility], a Service of [facility], [address] [place] [address] Scotty Castelan MD, Chemical Laboratory Tester [facility]# [id number] Blood specimen (specimen) Venous blood / Unknown 09/01/2021 7:55 AM EST 09/01/2021 8:00 AM EST Sang Lai DO LAB BLOOD ORDERABLES Final Resu lt [facility] from Last 3 Months or Most Recently Relevant to Health Maintenance Insurance [facility] Medicare Care Teams Chief Credit Officer Relationship Specialty Start Date End Date Camille Domínguez MD [address] [place], [place] PCP - General 05/23/19
--- OUTSIDE RECORDS SUMMARY | 2025-04-10 18:02 | XMS_ITS | Encounter Summary ---
Author Organization [facility] [place], Address [address] [place] [address] Phone Care Team Providers Care Western Felt Hat Blocker Name Role Phone Camille Domínguez MD Primary Care Provider [phone] Encounter Details Date Type Department Care Team (Late Contact Info) Description 09/10/2019 Orders Only [facility] [place] [address] [place] [address] Sang Lai DO [address] [facility] [place] [address] Benign prostatic hypertrophy without outflow [...] Visit [facility] [place], [address] [place] [address] Sang Lai DO [address] [place] [address] documented as of this encounter Visit Diagnoses Diagnosis Benign prostatic hypertrophy without outflow obstruction documented in this encounter Care Teams Western Felt Hat Blocker Relationship Specialty Start Date End Date Camille Domínguez MD [address] [facility] MEDICINE [place], [place] PCP - General 05/23/19 documented as of this encounter
--- OUTSIDE RECORDS SUMMARY | 2025-04-10 18:02 | XMS_ITS | Clinical Summary ---
Author Organization [place] [address] Care Team Providers Care Nuclear Control Operator Name Role Phone Camille Domínguez MD Primary Care Provider [phone] Social History Tobacco Use Types Packs/Day Years [...] age to complete this topic Care Teams Nuclear Control Operator Relationship Specialty Start Date End Date Camille Domínguez MD [address] [place] [address] PCP - General 03/22/24
--- OUTSIDE RECORDS SUMMARY | 2025-04-10 18:02 | XMS_ITS | Encounter Summary ---
Author Organization [facility] Address [address] [place] [address] Phone Care Team Providers Care Post Anesthesia Room Nurse Name Role Phone Camille Domínguez MD Primary Care Provider [phone] Encounter Details Date Type Department Care Team (Late st Contact Info) Description 08/30/2024 Documentation Only [facility] [address] [address] Sang Lai DO [address] [place] [address] Social History Tobacco Use Types Packs/Day Years [...] Visit [facility] [address] [address] Sang Lai DO [address] [place] [address] documented as of this encounter Visit Diagnoses Not on filedocumented in this encounter Care Teams Post Anesthesia Room Nurse Relationship Specialty Start Date End Date Camille Domínguez MD [address] [place] [address] MEDICINE [place], [place] PCP - General 05/23/19 documented as of this encounter
--- OUTSIDE RECORDS SUMMARY | 2025-04-10 18:02 | XMS_ITS | Encounter Summary ---
Author Organization [facility] Address [address] [place] [address] Phone Care Team Providers Care Railcar Switcher Name Role Phone Camille Domínguez MD Primary Care Provider [phone] Encounter Details Date Type Department Care Team (Late st Contact Info) Description 08/25/2022 Documentation Only [facility] [address] [place] [place] [address] Mahogany Preston [address] [place] [address] Social History Tobacco Use Types [...] Visit [facility] [address] [place] [place] [address] Sang Lai DO [address] [facility] [address] [place] [address] documented as of this encounter Visit Diagnoses Not on filedocumented in this encounter Care Teams Railcar Switcher Relationship Specialty Start Date End Date Camille Domínguez MD [address] [place] [address], [place] PCP - General 05/23/19 documented as of this encounter
--- OUTSIDE RECORDS SUMMARY | 2025-04-10 18:02 | XMS_ITS | Encounter Summary ---
Author Organization [facility] Address [address] [facility] [address] [place] [address] Phone Care Team Providers Care Senior Information Developer Name Role Phone Camille Domínguez MD Primary Care Provider [phone] Encounter Details Date Type Department Care Team (Late st Contact Info) Description 01/04/2025 Procedure [facility] Emergency Department, [facility] [address] [place] [address] Social History Tobacco Use Types Packs/Day Years [...] 2:30 AM EDT Emmanuelle Marti RN * [place] Suicide Severity Rating Scale (Screener/Recent Self-Report) Question [...] on filedocumented in this encounter Care Teams Senior Information Developer Relationship Specialty Start Date End Date Camille Domí[place] [address] [place] [address] PCP - General Internal Medicine 01/04/25 documented as of this encounter Additional Source Comments The information contained in this document represents components of the legal health record. It is not the complete legal health record.[facility]
== END 2025-04-10 16:05 | disposition home or self-care (01) ==
LOC: HO.HKAS 15:00
PROVIDERS: PCP Internal Medicine; Visit Provider Internal Medicine Nephrology
DX: I12.9 Hypertensive chronic kidney disease with stage 1 through stage 4 chronic kidney disease, or unspecified chronic kidney disease (principal); N18.4 Chronic kidney disease, stage 4 (severe); D63.1 Anemia in chronic kidney disease; N25.81 Secondary hyperparathyroidism of renal origin
CPT/HCPCS: 99214

== ENCOUNTER → 2025-04-10 15:00 | Outpatient (BNVA) | payer MEDICARE, SELFPAY | PROVIDERS: PCP Internal Medicine; Visit Provider Internal Medicine Nephrology | DX: E11.22 Type 2 diabetes mellitus with diabetic chronic kidney disease (principal); I15.0 Renovascular hypertension; N18.4 Chronic kidney disease, stage 4 (severe); D63.1 Anemia in chronic kidney disease; N25.81 Secondary hyperparathyroidism of renal origin | CPT/HCPCS: 99212 ==

== ENCOUNTER 2025-04-20 08:06 | Outpatient (REF) | payer MEDICARE, SELFPAY ==
--- OUTSIDE RECORDS SUMMARY | 2025-04-20 08:23 | XMS_ITS | Clinical Summary ---
Author Organization [facility] [place], Address [address] [place] [address] [place] [address] Phone Care Team Providers Care Building Rental Manager Name Role Phone Camille Domínguez MD Primary Care Provider [phone] Allergies No known active allergies Medications aspirin [...] by mouth every night 90 tablet 3 08/10/19 20 Active levothyroxine (SYNTHROID, LEVOTHROID) 75 MCG tablet levothyroxine 75 mcg tablet TAKE 1 TABLET BY MOUTH EVERY DAY Active amLODIPine (NORVASC) 5 MG tablet Take 5 mg by mouth 1 (one) time each day Active losartan (COZAAR) 50 MG tablet Take 1 tablet (50 mg total) by mouth in the morning and 1 tablet (50 mg total) in the evening. 180 tablet 3 06/09/20 24 025 Active allopurinol (ZYLOPRIM) 100 MG tablet TAKE 1 TABLET BY MOUTH EVERY DAY 90 tablet 3 04/11/20 25 Active allopurinol (ZYLOPRIM) 100 MG tablet TAKE 1 TABLET BY MOUTH EVERY DAY 90 tablet 3 01/28/20 24 025 Discontinued Active Problems Problem Noted Date Diagnosed Date [...] Encounters Date Type Department Care Team Description 04/11/2025 Refill [facility] [address] [place] [phone] Sang Lai DO 02/23/2025 Orders Only [facility] Vascular Access [address] [place] [address] Laura Lopez Chronic kidney disease, stage 4 (severe) (HCC) 02/16/2025 Documentation Only [facility] Vascular Access [address] [place] [phone] Laura Lopez 02/12/2025 Telephone [facility] [address] [place] [address] Laura Lopez 02/12/2025 Orders Only [facility] Vascular Access [address] [place] [address] Laura Lopez Chronic kidney disease, stage 4 (severe) (HCC) (Primary Dx) 02/12/2025 Orders Only [facility] Vascular Access [address] [place] [phone] Laura Lopez Chronic kidney disease, stage 4 (severe) (HCC) (Primary Dx); Anemia in chronic kidney disease; Other iron deficiency anemia 02/09/2025 1:45 PM EDT Office Visit [facility] [address] [place] [phone] Sang Lai DO Other acute kidney failure (HCC) (Primary Dx); Chronic kidney disease, stage 4 (severe) (HCC); Hypertensive heart and chronic kidney disease without heart failure, with stage 1 through stage 4 chronic kidney disease, or unspecified chronic kidney disease; Persistent proteinuria; Aneurysm of aorta, not otherwise specified (HCC) 02/08/2025 Office Communication [facility] [place], [address] [place] [address] Christina Lockett from Last 3 Months Immunizations Immunization Administration [...] Visit [facility] [place], [address] [place] [address] Sang Lai DO [address] [facility] [place] [address] Health Maintenance Due Date Last Done Comments [...] Creatinine, Ur 174.3 Not Estab. mg/dL [facility] Albumin, Urine 740.7 Not Estab. ug/mL [facility] Comment: Results confirmed on dilution. Albumin/Creatin ine Ratio 425(H) 0 - 29 mg/g creat [facility] Comment: Normal: 0 - 29 Moderately increased: 30 - 300 Severely increased: >300 01/23/2025 3:33 PM EDT 01/23/2025 us Sang Lai DO LAB URINE ORDERABLES Final Resu lt [facility] [place] [address] [place] [address] * (ABNORMAL) Vitamin D 25 Hydroxy (01/23/2025 3:33 PM EDT) Vitamin D, 25-OH, Total 23.1(L) 30.0 - 100.0 ng/mL [facility] Comment: Vitamin D deficiency has been defined by the [place] of Medicine and an Endocrine Society practice guideline as a level of serum 25-OH vitamin D less than 20 ng/mL (1,2). The Endocrine Society went on to further define vitamin D insufficiency as a level between 21 and 29 ng/mL (2). 1. IOM ([place] of Medicine). 2010. Dietary reference intakes for calcium and D. [place]: The National Academies Press. 2. Urvashi MF, Rhona MOSS, Judith VASQUEZ, et al. Evaluation, treatment, and prevention of vitamin D deficiency: an Endocrine Society clinical practice guideline. JCEM. 2010; 96(7):1911-30. 01/23/2025 3:33 PM EDT 01/23/2025 us Sang Lai DO LAB BLOOD ORDERABLES Final Resu lt [facility] [address] [place] [address] * (ABNORMAL) CBC (01/23/2025 3:33 PM EDT) WBC 5.0 3.4 - 10.8 x10E3/uL [facility] RBC 2.81(L) 4.14 - 5.80 x10E6/uL [facility] Hemoglobin 9.8(L) 13.0 - 17.7 g/dL [facility] Hematocrit 29.5(L) 37.5 - 51.0 % [facility] MCV 105(H) 79 - 97 fL [facility] MCH 34.9(H) 26.6 - 33.0 pg [facility] MCHC 33.2 31.5 - 35.7 g/dL [facility] RDW 12.9 11.6 - 15.4 % [facility] Platelets 117(L) 150 - 450 x10E3/uL [facility] 01/23/2025 3:33 PM EDT 01/23/2025 Sang Traceyry LAB BLOOD ORDERABLES Final Resu lt [facility] [place] [address] [place] [address] * (ABNORMAL) PTH, Intact (01/23/2025 3:33 PM EDT) PTH 144(H) 15 - 65 pg/mL [facility] 01/23/2025 3:33 PM EDT 01/23/2025 Sang Traceyry LAB BLOOD ORDERABLES Final Resu lt Performing Organization Address City/[facility]/ZIP Co de Phone Number [facility] [place] [address] [place] [address] * (ABNORMAL) Renal Function Panel (01/23/2025 3:33 PM EDT) Glucose 99 70 - 99 mg/dL [facility] BUN 49(H) 8 - 27 mg/dL [facility] Creatinine 3.54(H) 0.76 - 1.27 mg/dL [facility] eGFR CKD-EPI CR 2020 16(L) >59 mL/min/1.7 3 [facility] BUN/Creatinine Ratio 14 10 - 24 [facility] Sodium 138 134 - 144 mmol/L [facility] Potassium 4.5 3.5 - 5.2 mmol/L [facility] Chloride 102 96 - 106 mmol/L [facility] Bicarbonate (CO2) 21 20 - 29 mmol/L [facility] Calcium 8.8 8.6 - 10.2 mg/dL [facility] Albumin 3.9 3.7 - 4.7 g/dL [facility] Phosphorus 3.6 2.8 - 4.1 mg/dL [facility] 01/23/2025 3:33 PM EDT 01/23/2025 Sang Lai LAB BLOOD ORDERABLES Final Resu lt [facility] [address] [place] [address] * (ABNORMAL) Hemoglobin A1c (09/01/2021 7:55 AM EST) Hemoglobin A1C 6.2(H) (4.0-5.6) % [facility] Comment: MONITORING: In known diabetic patients, hemoglobin A1c targets should be discussed with health care provider. DIAGNOSTIC USE: The [place] Diabetes Association (ADA) and the World Health [...] Supplement 1 Testing performed or reported by [facility], a Service of [facility], [address] [place] [address] Scotty Castelan MD, Inventory Control Manager [facility]# [id number] Blood specimen (specimen) Venous blood / Unknown 09/01/2021 7:55 AM EST 09/01/2021 8:00 AM EST Sang Lai DO LAB BLOOD ORDERABLES Final Resu lt [facility] from Last 3 Months or Most Recently Relevant to Health Maintenance Insurance Medicare Care Teams Building Rental Manager Relationship Specialty Start Date End Date Camille Domínguez MD [address] [place], [place] PCP - General 05/23/19
--- OUTSIDE RECORDS SUMMARY | 2025-04-20 08:23 | XMS_ITS | Encounter Summary ---
Author Organization [facility] Address [address] [place] [address] Phone Care Team Providers Care Program Rep Name Role Phone Camille Domínguez MD Primary Care Provider [phone] Encounter Details Date Type Department Care Team (Late st Contact Info) Description 05/13/2023 Documentation Only [facility] [address] [place] [address] Sang Lai DO [address] [facility] [place] [phone] Social History Tobacco Use Types Packs/Day Years [...] Trans[facility] [address] [place] [address] Sang Lai DO [address] [place] [address] documented as of this encounter Visit Diagnoses Not on filedocumented in this encounter Care Teams Program Rep Relationship Specialty Start Date End Date Camille Domínguez MD [address] [place] [address] MEDICINE [place], [place] PCP - General 05/23/19 documented as of this encounter
--- OUTSIDE RECORDS SUMMARY | 2025-04-20 08:23 | XMS_ITS | Clinical Summary ---
Author Organization [facility] [place] [address] Care Team Providers Care Manager Perioperative Name Role Phone Camille Domínguez MD Primary Care Provider [phone] Social History Tobacco Use Types Packs/Day Years [...] age to complete this topic Care Teams Manager Perioperative Relationship Specialty Start Date End Date Camille Domínguez MD [address] [place] [address] PCP - General 03/22/24
--- OUTSIDE RECORDS SUMMARY | 2025-04-20 08:23 | XMS_ITS | Encounter Summary ---
Author Organization [facility] [place], Address [address] [place] [address] Phone Care Team Providers Care Motorcycle Racer Name Role Phone Camille Domínguez MD Primary Care Provider [phone] Encounter Details Date Type Department Care Team (Late Contact Info) Description 02/23/2025 Orders Only [facility] [address] [place] [address] Laura Lopez [address] [place] [phone] Chronic kidney disease, stage 4 (severe) (HCC) [...] Visit [facility] [address] [place] [address] Sang Lai DO [address] [facility] [address] [place] [address] documented as of this encounter Visit Diagnoses Diagnosis Chronic kidney disease, stage 4 (severe) (HCC) documented in this encounter Care Teams Motorcycle Racer Relationship Specialty Start Date End Date Camille Domínguez MD [address] [place], [place] PCP - General 05/23/19 documented as of this encounter
--- OUTSIDE RECORDS SUMMARY | 2025-04-20 08:23 | XMS_ITS | Encounter Summary ---
Author Organization [facility] Address [address] [place] [address] Phone Care Team Providers Care Inking Machine Tender Name Role Phone Camille Domínguez MD Primary Care Provider [phone] Encounter Details Date Type Department Care Team (Late st Contact Info) Description 01/18/2024 Documentation Only [facility] [address] [place] [address] Sang Lai DO [address] [place] [address] Social History Tobacco Use Types [...] Visit [facility] [address] [place] [address] Sang Lai DO [address] [place] [address] documented as of this encounter Visit Diagnoses Not on filedocumented in this encounter Care Teams Inking Machine Tender Relationship Specialty Start Date End Date Camille Domínguez MD [address] [place] [address] MEDICINE [place], [place] PCP - General 05/23/19 documented as of this encounter
--- OUTSIDE RECORDS SUMMARY | 2025-04-20 08:23 | XMS_ITS | Encounter Summary ---
Author Organization [facility] Address [address] [place] [address] Phone Care Team Providers Care Grinder Lap Name Role Phone Camille Domínguez MD Primary Care Provider [phone] Encounter Details Date Type Department Care Team (Late st Contact Info) Description 04/26/2024 Documentation Only [facility] [address] [facility] [place] [address] Sang Lai DO [address] [facility] [place] [address] Social History Tobacco Use Types [...] Visit [facility] [address] [facility] [place] [address] Sang Lai DO [address] [place] [address] documented as of this encounter Visit Diagnoses Not on filedocumented in this encounter Care Teams Grinder Lap Relationship Specialty Start Date End Date Camille Domínguez MD [address] [place] [address] MEDICINE [place], [place] PCP - General 05/23/19 documented as of this encounter
--- OUTSIDE RECORDS SUMMARY | 2025-04-20 08:23 | XMS_ITS | Encounter Summary ---
Author Organization [facility] [place], Address [address] [place] [address] Phone Care Team Providers Care Chargemaster Specialist Name Role Phone Camille Domínguez MD Primary Care Provider [phone] Encounter Details Date Type Department Care Team (Late Contact Info) Description 09/10/2019 Orders Only [facility] [place] [address] [place] [address] Sang Lai DO [address] [facility] [place] [address] Benign prostatic hypertrophy without outflow [...] Visit [facility] [place], [address] [facility] [place] [address] Sang Lai DO [address] [facility] [place] [address] documented as of this encounter Visit Diagnoses Diagnosis Benign prostatic hypertrophy without outflow obstruction documented in this encounter Care Teams Chargemaster Specialist Relationship Specialty Start Date End Date Camille Domínguez MD [address] [facility] MEDICINE [place], [place] PCP - General 05/23/19 documented as of this encounter
--- OUTSIDE RECORDS SUMMARY | 2025-04-20 08:23 | XMS_ITS | Encounter Summary ---
Author Organization [facility] Address [address] [place] [address] Phone Care Team Providers Care Configuration Management Specialist Name Role Phone Camille Domínguez MD Primary Care Provider [phone] Encounter Details Date Type Department Care Team (Late st Contact Info) Description 08/30/2024 Documentation Only [facility] [address] [facility] [facility] [place] [address] Sang Lai DO [address] [place] [phone] Social History Tobacco Use Types Packs/Day Years [...] Visit [facility] [address] [facility] [place] [address] Sang Lai DO [address] [place] [address] documented as of this encounter Visit Diagnoses Not on filedocumented in this encounter Care Teams Configuration Management Specialist Relationship Specialty Start Date End Date Camille Domínguez MD [address] [place] [address] MEDICINE [place], [place] PCP - General 05/23/19 documented as of this encounter
--- OUTSIDE RECORDS SUMMARY | 2025-04-20 08:23 | XMS_ITS | Encounter Summary ---
Author Organization [facility] Address [address] [place] [address] Phone Care Team Providers Care Canvas Worker Apprentice Name Role Phone Camille Domínguez MD Primary Care Provider [phone] Encounter Details Date Type Department Care Team (Late st Contact Info) Description 05/27/2023 Documentation Only [facility] [address] [place] [address] Sang Lai DO [address] [facility] [place] [address] Social History Tobacco Use Types [...] Visit [facility] [address] [facility] [place] [address] Sang Lai DO [address] [facility] [place] [address] documented as of this encounter Visit Diagnoses Not on filedocumented in this encounter Care Teams Canvas Worker Apprentice Relationship Specialty Start Date End Date Camille Domínguez MD [address] [place] [address] MEDICINE [place], [place] PCP - General 05/23/19 documented as of this encounter
--- OUTSIDE RECORDS SUMMARY | 2025-04-20 08:23 | XMS_ITS | Encounter Summary ---
Author Organization [facility] Address [address] [place] [address] Phone Care Team Providers Care Splunk Architect Name Role Phone Camille Domínguez MD Primary Care Provider [phone] Encounter Details Date Type Department Care Team (Late st Contact Info) Description 12/05/2024 Orders Only [facility] [address] [place] [address] Laura Lopez [address] [place] [phone] Chronic kidney disease, stage 4 (severe) (HCC) [...] Visit [facility] [address] [facility] [place] [place] [address] Sang Lai [address] [place] [address] Scheduled Orders Name Type Priority Associated Diagnoses Orde r Schedule Urine Albumin / Creatinine Ratio Lab Routine Chronic kidney disease, stage 4 (severe) (HCC) Every 12 Weeks for 4 Occurrences starting 12/05/2024 until 01/05/2026 documented as of this encounter Visit Diagnoses Diagnosis Chronic kidney disease, stage 4 (severe) (HCC)- Primary documented in this encounter Care Teams Splunk Architect Relationship Specialty Start Date End Date Camille Domínguez MD [address] [place], [place] PCP - General 05/23/19 documented as of this encounter
--- OUTSIDE RECORDS SUMMARY | 2025-04-20 08:24 | XMS_ITS | Encounter Summary ---
Author Organization [facility] [place], Address [address] [place] [address] Phone Care Team Providers Care Industrial Gas Production Operator Name Role Phone Camille Domínguez MD Primary Care Provider Reason for Visit * Reason Comments Med Refill Encounter Details Date Type Department Care Team (Late Contact Info) Description 01/22/2020 Refill [facility] [address] [place] [address] Sang Lai DO [address] [facility] [place] [address] Social History Tobacco Use Types [...] Office Visit [facility], [address] [place] [address] Sang Lai DO [address] [facility] [place] [address] documented as of this encounter Visit Diagnoses Not on filedocumented in this encounter Care Teams Industrial Gas Production Operator Relationship Specialty Start Date End Date Camille Domínguez MD [address] [place], [place] PCP - General 05/23/19 documented as of this encounter
--- OUTSIDE RECORDS SUMMARY | 2025-04-20 08:24 | XMS_ITS | Encounter Summary ---
Author Organization [facility] Address [address] [facility] [address] [place] [address] Phone Care Team Providers Care Provider Relations Coordinator Name Role Phone Camille Domínguez MD Primary Care Provider [phone] Encounter Details Date Type Department Care Team (Late st Contact Info) Description 01/04/2025 Procedure [facility] Emergency Department, [facility] [address] [place] [address] Social History Tobacco Use Types Packs/Day Years [...] 2:30 AM EDT Emmanuelle Marti RN * [place] Suicide Severity Rating Scale (Screener/Recent Self-Report) Question [...] on filedocumented in this encounter Care Teams Provider Relations Coordinator Relationship Specialty Start Date End Date Camille Domínguez MD [address] [place] [address] PCP - General Internal Medicine 01/04/25 documented as of this encounter Additional Source Comments The information contained in this document represents components of the legal health record. It is not the complete legal health record.[facility]
--- OUTSIDE RECORDS SUMMARY | 2025-04-20 08:24 | XMS_ITS | Encounter Summary ---
Author Organization [facility] Address [address] [place] [address] Phone Care Team Providers Care Telephonic Case Manager Name Role Phone Camille Domínguez MD Primary Care Provider [phone] Encounter Details Date Type Department Care Team (Late st Contact Info) Description 08/25/2022 Documentation Only [facility] [address] [address] Mahogany Preston [address] [place] [address] Social History Tobacco Use Types [...] Visit [facility] [address] [address] Sang Lai DO [address] [facility] [place] [address] documented as of this encounter Visit Diagnoses Not on filedocumented in this encounter Care Teams Telephonic Case Manager Relationship Specialty Start Date End Date Camille Domínguez MD [address] [place] [address], [place] PCP - General 05/23/19 documented as of this encounter
--- OUTSIDE RECORDS SUMMARY | 2025-04-20 08:24 | XMS_ITS | Clinical Summary ---
Author Organization [facility] Address [address] [facility] [address] [place] [address] Phone Care Team Providers Care Investment Banking Associate Name Role Phone Camille Domínguez MD Primary Care Provider [phone] Allergies No known active allergies Medications METOPROLOL [...] Units by mouth daily. Active Ca cit-D3-mag#11-z kmh-bjmp-xru-aaliyah r (CALTRATE 600+D) 600 mg calcium- 800 unit-50 mg Tab Take 1 tablet by mouth daily. Active omega 6-jmm-inc-fish oil 1,000 mg (120 mg-180 mg) Cap [...] EDT) SODIUM 139 136 - 145 mmol/L [facility] CHLORIDE 105 95 - 106 mmol/L [facility] POTASSIUM 4.4 3.5 - 5.2 mmol/L [facility] CO2 23 20 - 31 mmol/L [facility] BUN 45(H) 9 - 23 mg/dL [facility] CREATININE 2.94(H) 0.50 - 1.30 mg/dL [facility] GLUCOSE 111(H) 74 - 106 mg/dL [facility] CALCIUM 9.1 8.7 - 10.4 mg/dL [facility] EGFR 20(L) >60 mL/min/1.7 3m2 [facility] Comment:Estimated glomerular filtration rate calculated using the CKD-EPI refit equation. ANION GAP 11 3 - 17 mmol/L [facility] Blood 01/06/2025 6:5 8 AM EDT 01/06/2025 7:41 AM EDT us Crystal Ellsworth PA-C LAB BLOOD ORDERABLES Fin al Result [facility] [address] [place], [place] [phone] from Last 3 Months or Most Recently Relevant to Health Maintenance Insurance MEDICARE PART A & B [employer] SUPPLEMENT MEDICARE PART A & B [employer] [place] [address] MEDICARE PART A & B [employer] MEDEX SUPPLEMENT MEDICARE PART A & B Member Subscriber Plan / Payer ( fective 2005-Present) Name:Glynn Cotton Member ID:[id number] Relation to Subscriber:Self Name:Glynn Cotton Subscriber ID:[id number] Payer ID:[id number] Group ID:Not on file Type:Medicare Address: [employer] [address] [employer] [employer]OSS MEDEX SUPPLEMENT MEDICARE PART A & B [employer] MEDEX SUPPLEMENT MEDICARE PART A & B [employer] MEDEX SUPPLEMENT MEDICARE PART A & B [employer] MEDEX SUPPLEMENT MEDICARE PART A & B [employer] MEDEX SUPPLEMENT MEDICARE PART A & B [employer] MEDEX SUPPLEMENT Advance Directives For more information, please contact: [phone] (9AM - 5PM Barbara/[facility], Wednesday-Wednesday) * Full Code (Latest Code Status on File) Date Activated Date Inactivated Comments 01/04/2025 11:55 PM Question Answer Comments Code Status Confirmed With: Patient Care Teams Investment Banking Associate Relationship Specialty Start Date End Date Camille Domínguez MD [address] [place] [address] PCP - General Internal Medicine 01/04/25 Additional Source Comments The information contained in this document represents components of the legal health record. It is not the complete legal health record.[facility]
--- OUTSIDE RECORDS SUMMARY | 2025-04-20 08:25 | XMS_ITS | Encounter Summary ---
Author Organization [facility] Address [address] [place] [address] Phone Care Team Providers Care Top Installer Name Role Phone Camille Domínguez MD Primary Care Provider [phone] Encounter Details Date Type Department Care Team (Late st Contact Info) Description 08/25/2022 Documentation Only [facility] [address] [place] [address] Sang Lai DO [address] [facility] [place] [address] Social History Tobacco Use Types [...] Visit [facility] [address] [place] [address] Sang Lai DO [address] [place] [address] documented as of this encounter Visit Diagnoses Not on filedocumented in this encounter Care Teams Top Installer Relationship Specialty Start Date End Date Camille Domínguez MD [address] [place] [address] MEDICINE [place], [place] PCP - General 05/23/19 documented as of this encounter
[2025-04-20 14:35] LABS: Anion Gap 11 (12-20); Blood Urea Nitrogen 46 mg/dL (9-16); Carbon Dioxide 24 mmol/L (22-29); Chloride 109 mmol/L (96-108); Estimated Glomerular Filt Rate 17; Potassium 4.7 mmol/L (3.3-5.1); Sodium 139 mmol/L (135-145)
[2025-04-20 15:12] LABS: Creatinine, mg/dL 47.84
[2025-04-20 15:25] LABS: Total Volume 24 Hour Urine 2175 mL
[2025-04-20 15:29] LABS: Creatinine (CrCl) 3.41 mg/dL (0.5-1.4)
== END 2025-04-20 08:07 | disposition home or self-care (01) ==
LOC: HO.HKASLDS 08:06
PROVIDERS: PCP Internal Medicine; Visit Provider Internal Medicine Nephrology
DX: N18.4 Chronic kidney disease, stage 4 (severe) (principal)
CPT/HCPCS: 36415; 80051; 82565; 82575; 84520

== ENCOUNTER 2025-05-17 15:45 | Outpatient (AMB) | payer MEDICARE, SELFPAY ==
--- NOTE | 2025-05-17 15:54 | HO.NEPHOV ---
Vital Signs 05/17/25 15:55 Height 5 ft 2 in Weight 152 lb 6 oz BMI 27.9 BP 144/80 H Blood Pressure Location Lt brachial Position Sitting Intake Visit Reasons: 1mnth w lab-LVM Co Founder And Chief Strategy Officer Required: No Accompanied by: Self / Same As Patient Allergies No Known Allergies Allergy (Verified 05/17/25 15:55) HPI Comments Details: Mr Cotton was seen in follow up of his CKD. He is known to have vascular disease including CAD needing CABG. He has mild ascending aortic dialatation. He also has H/O DM, HTN and gout. He had GFR of 30 mls/mt for some time which has worsened recently to 15 mls/mt. He is on multiple anti hypertensive medications including ARB. He denies CHF, CVA or PAD. He does not have any new bone or back pain. He does not take excess NSAID's . He denies Chest pain, SOB, PND, orthopnea or uremic symptoms. His BP is not at goal . He never had renal biopsy. [facility] Medical History (Updated 04/10/25 @ 20:16 by Meir Domínguez MD) Obstructive sleep apnea syndrome Mild ascending aorta dilatation Hypertension HLD (hyperlipidemia) Helicobacter pylori (H. pylori) Gout Diabetes mellitus Chronic kidney disease, stage 4 (severe) CAD (coronary artery disease), creek coronary artery Adult hypothyroidism Surgical History H/O colonoscopy S/P CABG x 4 Social History Alcohol intake: never Patient Tobacco Use Status: Never used Tobacco Review of Systems Const All systems reviewed & are unremarkable except as noted in HPI and below Physical Exam Vital Signs: Last Vital Signs BP 144/80 H 05/17/25 15:55 BMI result Body Mass Index 27.9 Const General: comfortable and no acute distress Orientation/consciousness: patient oriented x3 HEENT Head: Yes normocephalic Mouth: Normal oral and palatal mucosa present Eyes EOM: EOMs intact bilaterally Neck Neck: Yes supple Resp Auscultation: clear to auscultation bilaterally Cardio Jugular venous distension: no JVD Rate: regular rate GI Palpation (GI): Soft to palpation Auscultation: normal bowel sounds General: Yes no CVA tenderness Back/Spine/Pelvis Back: no CVA tenderness Skin General skin exam: no rashes or lesions noted Neuro General: patient oriented x3 and moves all extremities Extrem General: Yes no pedal edema Results Reviewed Nephrology Results: Hgb, (14.0-18.0) 10.3 g/dl L 04/03/25 WBC, (4.8-10.8) 5.7 X10*3/uL 04/03/25 Plt Count, (160-400) 103 X10*3/uL L 04/03/25 Sodium, (135-145) 139 mmol/L 04/20/25 Potassium, (3.3-5.1) 4.7 mmol/L 04/20/25 Chloride, (96-108) 109 mmol/L H 04/20/25 Carbon Dioxide, (22-29) 24 mmol/L 04/20/25 BUN, (9-16) 46 mg/dL H 04/20/25 Creatinine, (0.5-1.4) 3.41 mg/dL H 04/20/25 Calcium, (8.4-10.2) 9.2 mg/dL 04/03/25 PTH Intact, (8.7-77.1) 160.8 pg/mL H 04/03/25 Renal US 04/03/25 Assessment & Plan Assessment & Plan (1) Chronic kidney disease, stage 4 (severe): Code(s): N18.4 - Chronic kidney disease, stage 4 (severe) Category: Medical (2) Hypertension: Code(s): I10 - Essential (primary) hypertension Category: Medical Qualifiers: Hypertension type: renovascular hypertension Qualified Code(s): I15.0 - Renovascular hypertension (3) Anemia in chronic kidney disease: Code(s): N18.9 - Chronic kidney disease, unspecified; D63.1 - Anemia in chronic kidney disease Category: Medical Qualifiers: Chronic kidney disease stage: stage 4 (GFR 15-29) Qualified Code(s): N18.4 - Chronic kidney disease, stage 4 (severe); D63.1 - Anemia in chronic kidney disease (4) Secondary hyperparathyroidism (of renal origin): Code(s): N25.81 - Secondary hyperparathyroidism of renal origin Category: Medical Plan Mr Cotton has advanced CKD likely due to vascular disease. He is on losartan 50 mg twice daily. His BP is not at goal at home. 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 I have reviewed his CKD W/U. He will need activated Vitamin D soon. His 24 hour urine for cr clearance was 21 mls/mt . I increased his Amlodipine to 5 mg which I plan to increase to 10 mg at next visit and plan to back off on ARB to see whether he will have some improvement in GFR. He will need continued adjustment of BP medications and initiation of Procrit , which I plan to do based on evolving data. He should cut back Na in diet and avoid NSAID's. All questions answered. Orders: Orders Electrolytes 6 Weeks D63.1 - Anemia in chronic kidney disease, I15.0 - Renovascular hypertension, N18.4 - Chronic kidney disease, stage 4 (severe), N25.81 - Secondary hyperparathyroidism of renal origin Blood Urea Nitrogen 6 Weeks D63.1 - Anemia in chronic kidney disease, I15.0 - Renovascular hypertension, N18.4 - Chronic kidney disease, stage 4 (severe), N25.81 - Secondary hyperparathyroidism of renal origin Creatinine 6 Weeks D63.1 - Anemia in chronic kidney disease, I15.0 - Renovascular hypertension, N18.4 - Chronic kidney disease, stage 4 (severe), N25.81 - Secondary hyperparathyroidism of renal origin Medications: Changed From amlodipine 5 mg PO BID To amlodipine 5 mg PO ONCE 90 tabs 1RF Coding Level of Care Code Est Pt Level 4 (83373) Diagnoses Chronic kidney disease, stage 4 (severe) N18.4 Renovascular hypertension I15.0 Hypertension type: renovascular hypertension Anemia in stage 4 chronic kidney disease N18.4; D63.1 Chronic kidney disease stage: stage 4 (GFR 15-29) Secondary hyperparathyroidism (of renal origin) N25.81
[2025-05-17 15:55] VITALS: BP 144/80; BMI 27.9
--- OUTSIDE RECORDS SUMMARY | 2025-05-17 18:07 | XMS_ITS | Encounter Summary ---
Author Organization [facility] [place], Address [address] [place] [address] Phone Care Team Providers Care Art Education Professor Name Role Phone Camille Domínguez MD Primary Care Provider [phone] Encounter Details Date Type Department Care Team (Late st Contact Info) Description 08/25/2022 Documentation Only [facility] [place], [address] [place] [address] Sang Lai, [address] [place] [phone] Social History Tobacco Use Types Packs/Day Years [...] on filedocumented in this encounter Care Teams Art Education Professor Relationship Specialty Start Date End Date Camille Domínguez MD [address] [facility] MEDICINE [place], [place] PCP - General 05/23/19 documented as of this encounter
--- OUTSIDE RECORDS SUMMARY | 2025-05-17 18:07 | XMS_ITS | Encounter Summary ---
Author Organization [facility] [place], Address [address] [place] [address] Phone Care Team Providers Care Roll Form Operator Name Role Phone Camille Domínguez MD Primary Care Provider Encounter Details Date Type Department Care Team (Late st Contact Info) Description 04/26/2024 Documentation Only [facility] [place], [address] [place] [address] Sang Lai, [address] [place] [phone] Social History Tobacco Use Types Packs/Day Years [...] on filedocumented in this encounter Care Teams Roll Form Operator Relationship Specialty Start Date End Date Camille Domínguez MD [address] [facility] MEDICINE [place], [place] PCP - General 05/23/19 documented as of this encounter
--- OUTSIDE RECORDS SUMMARY | 2025-05-17 18:07 | XMS_ITS | Clinical Summary ---
Author Organization [facility], Address [address] [place] [address] [place] [address] Phone Care Team Providers Care Piano Case And Bench Assembler Name Role Phone Camille Domínguez MD Primary Care Provider [phone] Allergies No known active allergies Medications aspirin [...] 180 tablet 3 4 06/09/20 25 Active allopurinol (ZYLOPRIM) 100 MG tablet TAKE 1 TABLET BY MOUTH EVERY DAY 90 tablet 3 5 Active Active Problems Problem Noted Date Diagnosed [...] Encounters Date Type Department Care Team Description 05/04/2025 Orders Only [facility] [address] [place] [address] Sang Lai DO Chronic kidney disease, stage 4 (severe) (HCC); Hypertensive heart and chronic kidney disease without heart failure, with stage 1 through stage 4 chronic kidney disease, or unspecified chronic kidney disease; Persistent proteinuria; Aneurysm of aorta, not otherwise specified (HCC) 04/11/2025 Refill [facility] [address] [place] [address] Sang Lai DO 02/23/2025 Orders Only [facility] Vascular Access [address] [place] [phone] Laura Lopez Chronic kidney disease, stage 4 (severe) (HCC) 02/16/2025 Documentation Only [facility] V[facility] Access [address] [place] [place] [phone] Laura Lopez from Last 3 Months Immunizations Immunization Administration Dates Next Due H1N1 Inj 11/01/2009 Influenza (IM) Preservative Free 06/01/2019 Influenza Split High Dose Pr eservative Free IM 04/20/2016,05/04/2015 Influenza TIV (IM) 06/02/2016 Influenza Vaccine, Quadrival ent, Adjuvanted 03/25/2020 Influenza Whole 06/02/2006 Influenza, Unspecified 04/14/2023,2021,04/09/2021,03/25,06/01/2019,04/28/2018,05/18/2017 ,05/28/2015,04/19/2014,06/13/2013,12/0 10/2011,04/28/2011,07/09/2010, 8 Moderna SARS-COV-2 12/05/2021 Pfizer SARS-COV-2 04/14/2021,09/10/2020,08/20/19 [...] 02/02/2019 12:00 PM EDT Plan of Treatment Health Maintenance Due Date Last Done Comments Diabetes: Hemoglobin A1C 09/11/2022 09/01/2021, 08 Diabetes: Ophthalmology Exam 09/11/2022 11/23/2017, 08/05/2016, 06/09/2016 [...] Procedure Name Priority Date/Time Associated Diagnosis Comments HEMOGLOBIN A1C Routine 09/01/2021 7:55 AM EST Stage 3b chronic kidney disease (HCC) Hypertensive heart and chronic kidney disease without heart failure, with stage 1 through stage 4 chronic kidney disease, or unspecified chronic kidney disease from Last 3 Months or Most Recently Relevant to Health Maintenance Results * (ABNORMAL) Hemoglobin A1c (09/01/2021 7:55 AM EST) Hemoglobin A1C 6.2(H) (4.0-5.6) % [facility] Comment: MONITORING: In known diabetic patients, hemoglobin A1c targets should be discussed with health care provider. DIAGNOSTIC USE: The Citizen Of [place] Diabetes Association (ADA) and the World Health [...] Supplement 1 Testing performed or reported by [facility], a Service of [facility], [address] [place] [address] Scotty Castelan MD, Pulley Worker [facility]# [id number] Blood specimen (specimen) Venous blood / Unknown 09/01/2021 7:55 AM EST 09/01/2021 8:00 AM EST us Sang Lai DO LAB BLOOD ORDERABLES Final Resu lt [facility] from Last 3 Months or Most Recently Relevant to Health Maintenance Insurance [facility] Medicare Care Teams Piano Case And Bench Assembler Relationship Specialty Start Date End Date Camille Domínguez MD [address] [place], [place] PCP - General 05/23/19
--- OUTSIDE RECORDS SUMMARY | 2025-05-17 18:07 | XMS_ITS | Clinical Summary ---
Author Organization [facility] Address [address] [facility] [address] [place] [address] Phone Care Team Providers Care Purchase Request Editor Name Role Phone Camille Domínguez MD Primary Care Provider [phone] Allergies No known active allergies Medications METOPROLOL [...] Units by mouth daily. Active Ca cit-D3-mag#11-z aiq-dibm-nzz-aaliyah r (CALTRATE 600+D) 600 mg calcium- 800 unit-50 mg Tab Take 1 tablet by mouth daily. Active omega 5-lbx-ljg-fish oil 1,000 mg (120 mg-180 mg) Cap [...] EDT) SODIUM 139 136 - 145 mmol/L [facility] CHLORIDE 105 95 - 106 mmol/L [facility] POTASSIUM 4.4 3.5 - 5.2 mmol/L [facility] CO2 23 20 - 31 mmol/L [facility] BUN 45(H) 9 - 23 mg/dL [facility] CREATININE 2.94(H) 0.50 - 1.30 mg/dL [facility] GLUCOSE 111(H) 74 - 106 mg/dL [facility] CALCIUM 9.1 8.7 - 10.4 mg/dL [facility] EGFR 20(L) >60 mL/min/1.7 3m2 [facility] Comment:Estimated glomerular filtration rate calculated using the CKD-EPI refit equation. ANION GAP 11 3 - 17 mmol/L [facility] Blood 01/06/2025 6:5 8 AM EDT 01/06/2025 7:41 AM EDT us Crystal Ellsworth PA-C LAB BLOOD ORDERABLES Fin al Result [facility] [address] [place], [place] [id number] from Last 3 Months or Most Recently Relevant to Health Maintenance Insurance MEDICARE PART A & B [employer] MEDEX SUPPLEMENT MEDICARE PART A & B [employer] [place] [place] [address] MEDICARE PART A & B [employer] MEDEX SUPPLEMENT MEDICARE PART A & B Member Subscriber Plan / Payer ( fective 2005-Present) Name:Glynn Cotton Member ID:[id number] Relation to Subscriber:Self Name:Glynn Cotton Subscriber ID:[id number] Payer ID:[id number] Group ID:Not on file Type:Medicare Address: [employer] [address] Get10 CROSS MEDEX SUPPLEMENT MEDICARE PART A & B Get[employer] MEDEX SUPPLEMENT MEDICARE PART A & B [employer] MEDEX SUPPLEMENT MEDICARE PART A & B [employer] MEDEX SUPPLEMENT MEDICARE PART A & B [employer] MEDEX SUPPLEMENT MEDICARE PART A & B [employer] MEDEX SUPPLEMENT Advance Directives For more information, please contact: [phone] (9AM - 5PM Barbara/[facility], Wednesday-Wednesday) * Full Code (Latest Code Status on File) Date Activated Date Inactivated Comments 01/04/2025 11:55 PM Question Answer Comments Code Status Confirmed With: Patient Care Teams Purchase Request Editor Relationship Specialty Start Date End Date Camille Domínguez MD [address] [place] [address] PCP - General Internal Medicine 01/04/25 Additional Source Comments The information contained in this document represents components of the legal health record. It is not the complete legal health record.[facility]
--- OUTSIDE RECORDS SUMMARY | 2025-05-17 18:07 | XMS_ITS | Clinical Summary ---
Author Organization [place] [address] Care Team Providers Care Heating Plant Superintendent Name Role Phone Camille Domínguez MD Primary Care Provider [phone] Social History Tobacco Use Types Packs/Day Years [...] (Lipid Panel) 04/27/2024 Falls Risk Assessment 04/27/2024 Social Influencers of Health Screening 04/27/2024 Depression Screening 07/19/2024 COVID-19 Vaccine (2023-2 5 season) 2025 Influenza Vaccine (#1) 2025 [...] age to complete this topic Care Teams Heating Plant Superintendent Relationship Specialty Start Date End Date Camille Domínguez MD [address] [place] [address] PCP - General 03/22/24
--- OUTSIDE RECORDS SUMMARY | 2025-05-17 18:07 | XMS_ITS | Encounter Summary ---
Author Organization [facility], Address [address] [place] [address] Phone Care Team Providers Care Goggles Assembler Name Role Phone Camille Domínguez MD Primary Care Provider [phone] Encounter Details Date Type Department Care Team (Late st Contact Info) Description 02/23/2025 Orders Only [facility] [place] [address] [place] [place] [phone] Laura Lopez [address] [place] [phone] Chronic kidney disease, stage 4 (severe) (HCC) [...] (HCC) documented in this encounter Care Teams Goggles Assembler Relationship Specialty Start Date End Date Camille Domínguez MD [address] [place], [place] PCP - General 05/23/19 documented as of this encounter
--- OUTSIDE RECORDS SUMMARY | 2025-05-17 18:07 | XMS_ITS | Encounter Summary ---
Author Organization [facility], Address [address] [place] [address] Phone Care Team Providers Care Blower Feeder Dyed Raw Stock Name Role Phone Camille Domínguez MD Primary Care Provider [phone] Reason for Visit * Reason Comments Med Refill Encounter Details Date Type Department Care Team (Late st Contact Info) Description 01/22/2020 Refill [facility] [address] [place] [address] Sang Lai DO [address] [place] [phone] Social History Tobacco Use Types Packs/Day Years [...] on filedocumented in this encounter Care Teams Blower Feeder Dyed Raw Stock Relationship Specialty Start Date End Date Camille Domínguez MD [address] [place], [place] PCP - General 05/23/19 documented as of this encounter
--- OUTSIDE RECORDS SUMMARY | 2025-05-17 18:07 | XMS_ITS | Encounter Summary ---
Author Organization [facility] [place], Address [address] [place] [address] Phone Care Team Providers Care Forming Department End Finder Name Role Phone Camille Domínguez MD Primary Care Provider [phone] Encounter Details Date Type Department Care Team (Late st Contact Info) Description 09/10/2019 Orders Only [facility] [address] [place] [address] Sang Lai DO [address] [place] [phone] Benign prostatic hypertrophy without outflow obstruction Social [...] obstruction documented in this encounter Care Teams Forming Department End Finder Relationship Specialty Start Date End Date Camille Domínguez MD [address] [place], [place] PCP - General 05/23/19 documented as of this encounter
--- OUTSIDE RECORDS SUMMARY | 2025-05-17 18:07 | XMS_ITS | Encounter Summary ---
Author Organization [facility], Address [address] [place] [address] Phone Care Team Providers Care Manager Long Term Care Name Role Phone Camille Domínguez MD Primary Care Provider [phone] Encounter Details Date Type Department Care Team (Late st Contact Info) Description 05/13/2023 Documentation Only [facility] [place], [address] [place] [address] Sang Lai, [address] [facility] [place] [phone] Social History Tobacco Use Types Packs/Day Years [...] on filedocumented in this encounter Care Teams Manager Long Term Care Relationship Specialty Start Date End Date Camille Domínguez MD [address] [facility] MEDICINE [place], [place] PCP - General 05/23/19 documented as of this encounter
--- OUTSIDE RECORDS SUMMARY | 2025-05-17 18:07 | XMS_ITS | Encounter Summary ---
Author Organization [facility] [place], Address [address] [place] [address] Phone Care Team Providers Care Enrollment Representative Name Role Phone Camille Domínguez MD Primary Care Provider [phone] Encounter Details Date Type Department Care Team (Late st Contact Info) Description 08/30/2024 Documentation Only [facility] [place], [address] [place] [place] [address] Sang Lai, [address] [place] [phone] Social History Tobacco Use Types Packs/Day Years [...] on filedocumented in this encounter Care Teams Enrollment Representative Relationship Specialty Start Date End Date Camille Domínguez MD [address] [facility] PCP - General 05/23/19 documented as of this encounter
--- OUTSIDE RECORDS SUMMARY | 2025-05-17 18:07 | XMS_ITS | Encounter Summary ---
Author Organization [facility] Address [address] [facility] [address] [place] [address] Phone Care Team Providers Care Pull Up Hand Name Role Phone Camille Domínguez MD Primary Care Provider [phone] Encounter Details Date Type Department Care Team (Late st Contact Info) Description 01/04/2025 Procedure [facility] Emergency Department, [facility] [address] [place] [address] Social History Tobacco Use Types Packs/Day Years [...] 2:30 AM EDT Emmanuelle Marti RN * [place] Suicide Severity Rating Scale (Screener/Recent Self-Report) Question [...] on filedocumented in this encounter Care Teams Pull Up Hand Relationship Specialty Start Date End Date Camille Domínguez MD [address] [place] [address] PCP - General Internal Medicine 01/04/25 documented as of this encounter Additional Source Comments The information contained in this document represents components of the legal health record. It is not the complete legal health record.[facility]
--- OUTSIDE RECORDS SUMMARY | 2025-05-17 18:07 | XMS_ITS | Encounter Summary ---
Author Organization [facility] [place], Address [address] [place] [address] Phone Care Team Providers Care Garden Equipment Mechanic Name Role Phone Camille Domínguez MD Primary Care Provider [phone] Encounter Details Date Type Department Care Team (Late st Contact Info) Description 05/27/2023 Documentation Only [facility] [place], [address] [place] [address] Sang Lai, [address] [place] [phone] Social History Tobacco Use Types Packs/Day Years [...] on filedocumented in this encounter Care Teams Garden Equipment Mechanic Relationship Specialty Start Date End Date Camille Domínguez MD [address] [facility] MEDICINE [place], [place] PCP - General 05/23/19 documented as of this encounter
--- OUTSIDE RECORDS SUMMARY | 2025-05-17 18:07 | XMS_ITS | Encounter Summary ---
Author Organization [facility] [place], Address [address] [place] [address] Phone Care Team Providers Care Boarding House Cook Name Role Phone Camille Domínguez MD Primary Care Provider [phone] Encounter Details Date Type Department Care Team (Late st Contact Info) Description 01/18/2024 Documentation Only [facility] [place], [address] [place] [address] Sang Lai, [address] [place] [phone] Social History Tobacco Use Types Packs/Day Years [...] on filedocumented in this encounter Care Teams Boarding House Cook Relationship Specialty Start Date End Date Camille Domínguez MD [address] [facility] MEDICINE [place], [place] PCP - General 05/23/19 documented as of this encounter
--- OUTSIDE RECORDS SUMMARY | 2025-05-17 18:07 | XMS_ITS | Encounter Summary ---
Author Organization [facility] [place], Address [address] [place] [address] Phone Care Team Providers Care Tractor Expert Name Role Phone Camille Domínguez MD Primary Care Provider [phone] Encounter Details Date Type Department Care Team ([facility] st Contact Info) Description 05/04/2025 Orders Only [facility] [place], [address] [place] [address] Sang Lai, [address] [place] [phone] Chronic kidney disease, stage 4 (severe) (HCC); Hypertensive heart and chronic kidney disease without heart failure, with stage 1 through stage 4 chronic kidney disease, or unspecified chronic kidney disease; Persistent proteinuria; Aneurysm of aorta, not otherwise specified (HCC) Social History Tobacco Use Types Packs/Day [...] Chronic kidney disease, stage 4 (severe) (HCC) Hypertensive heart and chronic kidney disease without heart failure, with stage 1 through stage 4 chronic kidney disease, or unspecified chronic kidney disease Persistent proteinuria Aneurysm of aorta, not otherwise specified (HCC) documented in this encounter Care Teams Tractor Expert Relationship Specialty Start Date End Date Camille Domínguez MD NPI: [id number] [place] [address] PCP - General 05/23/19 documented as of this encounter
--- OUTSIDE RECORDS SUMMARY | 2025-05-17 18:07 | XMS_ITS | Encounter Summary ---
Author Organization [facility] [place], Address [address] [place] [address] Phone Care Team Providers Care Bronc Buster Name Role Phone Camille Domínguez MD Primary Care Provider [phone] Encounter Details Date Type Department Care Team (Late st Contact Info) Description 08/25/2022 Documentation Only [facility] [place], [address] [place] [address] [facility] [place] [address] [place] [phone] Social History Tobacco Use Types Packs/Day Years [...] on filedocumented in this encounter Care Teams Bronc Buster Relationship Specialty Start Date End Date Camille Domínguez MD [address] [facility] MEDICINE [place], [place] PCP - General 05/23/19 documented as of this encounter
--- OUTSIDE RECORDS SUMMARY | 2025-05-17 18:07 | XMS_ITS | Encounter Summary ---
Author Organization [facility] [place], Address [address] [place] [address] Phone Care Team Providers Care Payroll Examiner Name Role Phone Camille Domínguez MD Primary Care Provider [phone] Encounter Details Date Type Department Care Team (Late st Contact Info) Description 12/05/2024 Orders Only [facility] [place] - [facility] Center [address] [place] [phone] Laura Lopez [address] [place] [phone] Chronic kidney disease, stage 4 (severe) (HCC) [...] as of this encounter Plan of Treatment Scheduled Orders Name Type Priority Associated Diagnoses Orde r Schedule Urine Albumin / Creatinine Ratio Lab Routine Chronic kidney disease, stage 4 (severe) (HCC) Every 12 Weeks for 4 Occurrences starting 12/05/2024 until 01/05/2026 documented as of this encounter Visit Diagnoses Diagnosis Chronic kidney disease, stage 4 (severe) (HCC)- Primary documented in this encounter Care Teams Payroll Examiner Relationship Specialty Start Date End Date Camille Domínguez MD [address] [facility] MEDICINE [place], [place] PCP - General 05/23/19 documented as of this encounter
== END 2025-05-17 16:16 | disposition home or self-care (01) ==
LOC: HO.HKAS 15:46
PROVIDERS: PCP Internal Medicine; Visit Provider Internal Medicine Nephrology
DX: N18.4 Chronic kidney disease, stage 4 (severe) (principal); I15.0 Renovascular hypertension; D63.1 Anemia in chronic kidney disease; N25.81 Secondary hyperparathyroidism of renal origin
CPT/HCPCS: 99214

== ENCOUNTER → 2025-05-17 15:45 | Outpatient (BNVA) | payer MEDICARE, SELFPAY | PROVIDERS: PCP Internal Medicine; Visit Provider Internal Medicine Nephrology | DX: N18.4 Chronic kidney disease, stage 4 (severe) (principal); I15.0 Renovascular hypertension; D63.1 Anemia in chronic kidney disease; N25.81 Secondary hyperparathyroidism of renal origin | CPT/HCPCS: 99212 ==

== ENCOUNTER 2025-05-22 10:00 | Outpatient (REF) | payer MEDICARE, SELFPAY ==
--- OUTSIDE RECORDS SUMMARY | 2025-05-22 08:11 | XMS_ITS | Encounter Summary ---
Author Organization [facility] Address [address] [facility] [address] [place] [address] Phone Care Team Providers Care Arboriculture Instructor Name Role Phone Camille Domínguez MD Primary Care Provider [phone] Encounter Details Date Type Department Care Team (Late st Contact Info) Description 01/04/2025 Procedure [facility] Emergency Department, [facility] [address] [place] [address] Social History Tobacco Use Types Packs/Day Years [...] 2:30 AM EDT Emmanuelle Marti RN * [place] Suicide Severity Rating Scale (Screener/Recent Self-Report) Question [...] on filedocumented in this encounter Care Teams Arboriculture Instructor Relationship Specialty Start Date End Date Camille Domínguez MD [address] [place] [address] PCP - General Internal Medicine 01/04/25 documented as of this encounter Additional Source Comments The information contained in this document represents components of the legal health record. It is not the complete legal health record.[facility]
--- OUTSIDE RECORDS SUMMARY | 2025-05-22 08:11 | XMS_ITS | Clinical Summary ---
Author Organization [facility] Address [address] [facility] [address] [place] [address] Phone Care Team Providers Care Newborn Hearing Screener Name Role Phone Camille Domínguez MD Primary Care Provider [phone] Allergies No known active allergies Medications METOPROLOL [...] Units by mouth daily. Active Ca cit-D3-mag#11-z ggp-ifdm-bml-aaliyah r (CALTRATE 600+D) 600 mg calcium- 800 unit-50 mg Tab Take 1 tablet by mouth daily. Active omega 6-gsb-vep-fish oil 1,000 mg (120 mg-180 mg) Cap [...] Date/Time Associated Diagnosis Comments BASIC METABOLIC PANEL (BMP) Routine 01/06/2025 6:58 AM EDT from Last 3 Months or Most Recently Relevant to Health Maintenance Results * (ABNORMAL) Basic metabolic panel (01/06/2025 6:58 AM EDT) SODIUM 139 136 - 145 mmol/L [facility] CHLORIDE 105 95 - 106 mmol/L [facility] POTASSIUM 4.4 3.5 - 5.2 mmol/L [facility] CO2 23 20 - 31 mmol/L [facility] BUN 45(H) 9 - 23 mg/dL [facility] CREATININE 2.94(H) 0.50 - 1.30 mg/dL [facility] GLUCOSE 111(H) 74 - 106 mg/dL [facility] CALCIUM 9.1 8.7 - 10.4 mg/dL [facility] EGFR 20(L) >60 mL/min/1.7 3m2 [facility] Comment:Estimated glomerular filtration rate calculated using the CKD-EPI refit equation. ANION GAP 11 3 - 17 mmol/L [facility] Blood 01/06/2025 6:58 AM EDT 01/06/2025 7:41 AM EDT us Crystal Ellsworth PA-C LAB BLOOD BKR ORDERABLES Final Result Performing Organization Address City/State/[facility] Co de Phone Number [facility] [address] [place] [address] from Last 3 Months or Most Recently Relevant to Health Maintenance Insurance MEDICARE PART A & B [employer] MEDEX SUPPLEMENT MEDICARE PART A & B [employer] [place] [address] MEDICARE PART A & B [employer] MED[employer] SUPPLEMENT MEDICARE PART A & B [employer] MED[employer] SUPPLEMENT MEDICARE PART A & B [employer] MED[employer] SUPPLEMENT MEDICARE PART A & B [employer] SUPPLEMENT MEDICARE PART A & B [employer] MED[employer] SUPPLEMENT MEDICARE PART A & B [employer] MED[employer] SUPPLEMENT MEDICARE PART A & B [employer] MEDEX SUPPLEMENT Advance Directives For more information, please contact: [phone] (9AM - 5PM Barbara/[facility], Wednesday-Wednesday) * Full Code (Latest Code Status on File) Date Activated Date Inactivated Comments 01/04/2025 11:55 PM Question Answer Comments Code Status Confirmed With: Patient Care Teams Newborn Hearing Screener Relationship Specialty Start Date End Date Camille Domínguez MD [address] [place] [address] PCP - General Internal Medicine 01/04/25 Additional Source Comments The information contained in this document represents components of the legal health record. It is not the complete legal health record.[facility]
--- OUTSIDE RECORDS SUMMARY | 2025-05-22 08:11 | XMS_ITS | Clinical Summary ---
Author Organization [facility] [place] [address] Care Team Providers Care Acid Leveler Name Role Phone Camille Domínguez MD Primary Care Provider [phone] Social History Tobacco Use Types Packs/Day Years [...] age to complete this topic Care Teams Acid Leveler Relationship Specialty Start Date End Date Camille Domínguez MD [address] [place] [address] PCP - General 03/22/24
[2025-05-22 11:19] LABS: Anion Gap 8 (12-20); Blood Urea Nitrogen 51 mg/dL (9-16); Carbon Dioxide 24 mmol/L (22-29); Chloride 115 mmol/L (96-108); Estimated Glomerular Filt Rate 16; Potassium 4.2 mmol/L (3.3-5.1); Sodium 143 mmol/L (135-145)
--- OUTSIDE RECORDS SUMMARY | 2025-05-22 11:39 | XMS_ITS | Clinical Summary ---
Author Organization [facility] [place], Address [address] [place] [address] [place] [address] Phone Care Team Providers Care Radial Router Operator Name Role Phone Camille Domínguez MD Primary Care Provider [phone] Allergies No known active allergies Medications aspirin [...] Encounters Date Type Department Care Team Description 05/18/2025 Orders Only [facility] V[facility] Access [address] [place] [phone] Laura Lopez Chronic kidney disease, stage 4 (severe) (HCC) 05/04/2025 Orders Only [facility] [address] [place] [phone] Sang Lai DO Chronic kidney disease, stage 4 (severe) (HCC); Hypertensive heart and chronic kidney disease without heart failure, with stage 1 through stage 4 chronic kidney disease, or unspecified chronic kidney disease; Persistent proteinuria; Aneurysm of aorta, not otherwise specified (HCC) 04/11/2025 Refill [facility] [address] [phone] Sang Lai DO 02/23/2025 Orders Only [facility] V[facility] Access [address] [place] [phone] Laura Lopez Chronic kidney disease, stage 4 (severe) (HCC) from Last 3 Months Immunizations Immunization Administration Dates Next Due H1N1 Inj 11/01/2009 Influenza (IM) Preservative Free 06/01/2019 Influenza Split High Dose Pr eservative Free IM 04/20/2016,05/04/2015 Influenza TIV (IM) 06/02/2016 Influenza Vaccine, Quadrival ent, Adjuvanted 03/25/2020 Influenza Whole 06/02/2006 Influenza, Unspecified 04/14/2023,2021,04/09/2021,03/25,06/01/2019,04/28/2018,05/18/2017 ,05/28/2015,04/19/2014,06/13/2013,12/10/2011,04/28/2011,07/09/2010,10/13/200 8 Moderna SARS-COV-2 12/05/2021 Pfizer SARS-COV-2 04/14/2021,09/10/2020,08/20/19 [...] AM EST) Hemoglobin A1C 6.2(H) (4.0-5.6) % [facility] Comment: MONITORING: In known diabetic patients, hemoglobin A1c targets should be discussed with health care provider. DIAGNOSTIC USE: The [place] [employer] (ADA) and the World Health [...] Supplement 1 Testing performed or reported by [facility], a Service of [facility], [address] [place] [address] Scotty Castelan MD, Logistics Loss Prevention Manager [facility]# [id number] Blood specimen (specimen) Venous blood / Unknown 09/01/2021 7:55 AM EST 09/01/2021 8:00 AM EST us Sang Lai DO LAB BLOOD ORDERABLES Final Resu lt [facility] from Last 3 Months or Most Recently Relevant to Health Maintenance Insurance [facility] Medicare Care Teams Radial Router Operator Relationship Specialty Start Date End Date Camille Domínguez MD [address] [place], [place] PCP - General 05/23/19
--- OUTSIDE RECORDS SUMMARY | 2025-05-22 11:39 | XMS_ITS | Encounter Summary ---
Author Organization [facility] [place], Address [address] [place] [address] Phone Care Team Providers Care Science Job Titles Name Role Phone Camille Domínguez MD Primary Care Provider [phone] Encounter Details Date Type Department Care Team (Late st Contact Info) Description 01/18/2024 Documentation Only [facility] [place], [address] [place] [address] Sang Lai, [address] [place] [phone] Social History Tobacco Use Types Packs/Day Years [...] on filedocumented in this encounter Care Teams Science Job Titles Relationship Specialty Start Date End Date Camille Domínguez MD [address] [facility] MEDIC[facility] [place], [place] PCP - General 05/23/19 documented as of this encounter
--- OUTSIDE RECORDS SUMMARY | 2025-05-22 11:39 | XMS_ITS | Encounter Summary ---
Author Organization [facility] [place], Address [address] [place] [address] Phone Care Team Providers Care Electron Microscopist Name Role Phone Camille Domínguez MD Primary Care Provider [phone] Encounter Details Date Type Department Care Team (Late st Contact Info) Description 08/30/2024 Documentation Only [facility] [place], [address] [place] [address] Sang Lai, [address] [place] [phone] Social History Tobacco Use Types Packs/Day Years [...] on filedocumented in this encounter Care Teams Electron Microscopist Relationship Specialty Start Date End Date Camille Domínguez MD [address] [facility] MEDIC[facility] [place], [place] PCP - General 05/23/19 documented as of this encounter
--- OUTSIDE RECORDS SUMMARY | 2025-05-22 11:39 | XMS_ITS | Encounter Summary ---
Author Organization [facility] [place], Address [address] [place] [address] Phone Care Team Providers Care Financial Investigator Name Role Phone Camille Domínguez MD Primary Care Provider [phone] Encounter Details Date Type Department Care Team (Late st Contact Info) Description 04/26/2024 Documentation Only [facility] [place], [address] [place] [address] Sang Lai, [address] [place] [phone] Social History Tobacco Use Types Packs/Day Years [...] on filedocumented in this encounter Care Teams Financial Investigator Relationship Specialty Start Date End Date Camille Domínguez MD [address] [facility] MEDIC[facility] [place], [place] PCP - General 05/23/19 documented as of this encounter
--- OUTSIDE RECORDS SUMMARY | 2025-05-22 11:39 | XMS_ITS | Encounter Summary ---
Author Organization [facility] [place], Address [address] [place] [address] Phone Care Team Providers Care Automotive Welder Name Role Phone Camille Domínguez MD Primary Care Provider [phone] Encounter Details Date Type Department Care Team (Late st Contact Info) Description 05/13/2023 Documentation Only [facility] [place], [address] [place] [address] Sang Lai, [address] [facility] [place] [phone] Social History Tobacco Use Types Packs/Day Years [...] on filedocumented in this encounter Care Teams Automotive Welder Relationship Specialty Start Date End Date Camille Domínguez MD [address] [facility] [place], [place] PCP - General 05/23/19 documented as of this encounter
--- OUTSIDE RECORDS SUMMARY | 2025-05-22 11:39 | XMS_ITS | Encounter Summary ---
Author Organization [facility] [place], Address [address] [place] [address] Phone Care Team Providers Care Cut Off Sawyer Name Role Phone Camille Domínguez MD Primary Care Provider [phone] Encounter Details Date Type Department Care Team (Late st Contact Info) Description 12/05/2024 Orders Only [facility] [place] [address] [place] [phone] Laura Lopez [address] [place] [phone] Chronic kidney disease, stage 4 (severe) (HCC) [...] Primary documented in this encounter Care Teams Cut Off Sawyer Relationship Specialty Start Date End Date Camille Domínguez MD [address] [facility] MEDICINE [place], [place] PCP - General 05/23/19 documented as of this encounter
--- OUTSIDE RECORDS SUMMARY | 2025-05-22 11:39 | XMS_ITS | Encounter Summary ---
Author Organization [facility] [place], Address [address] [place] [address] Phone Care Team Providers Care Master Sheet Clerk Name Role Phone Camille Domínguez MD Primary Care Provider [phone] Encounter Details Date Type Department Care Team (Late st Contact Info) Description 09/10/2019 Orders Only [facility] [address] [place] [address] Sang Lai DO [address] [place] [phone] Benign prostatic hypertrophy without outflow obstruction Social [...] obstruction documented in this encounter Care Teams Master Sheet Clerk Relationship Specialty Start Date End Date Camille Domínguez MD [address] [place], [place] PCP - General 05/23/19 documented as of this encounter
--- OUTSIDE RECORDS SUMMARY | 2025-05-22 11:39 | XMS_ITS | Encounter Summary ---
Author Organization [facility] [place], Address [address] [place] [address] Phone Care Team Providers Care Cuffing Machine Operator Name Role Phone Camille Domínguez MD Primary Care Provider [phone] Encounter Details Date Type Department Care Team ([facility] st Contact Info) Description 05/04/2025 Orders Only [facility] [place], [address] [place] [address] Sang Lai, [address] [place] [phone] Chronic kidney disease, stage 4 (severe) (HCC); [...] (HCC) documented in this encounter Care Teams Cuffing Machine Operator Relationship Specialty Start Date End Date Camille Domínguez MD NPI: [id number] [place] [address] PCP - General 05/23/19 documented as of this encounter
--- OUTSIDE RECORDS SUMMARY | 2025-05-22 11:39 | XMS_ITS | Encounter Summary ---
Author Organization [facility] [place], Address [address] [place] [address] Phone Care Team Providers Care Shooter Helper Name Role Phone Camille Domínguez MD Primary Care Provider [phone] Encounter Details Date Type Department Care Team (Late st Contact Info) Description 05/27/2023 Documentation Only [facility] [place], [address] [place] [address] Sang Lai, [address] [place] [phone] Social History Tobacco Use Types Packs/Day Years [...] on filedocumented in this encounter Care Teams Shooter Helper Relationship Specialty Start Date End Date Camille Domínguez MD [address] [facility] MEDIC[facility] [place], [place] PCP - General 05/23/19 documented as of this encounter
--- OUTSIDE RECORDS SUMMARY | 2025-05-22 11:39 | XMS_ITS | Encounter Summary ---
Author Organization [facility] [place], Address [address] [place] [address] Phone Care Team Providers Care Technician Support Association Name Role Phone Camille Domínguez MD Primary Care Provider [phone] Encounter Details Date Type Department Care Team (Late st Contact Info) Description 02/23/2025 Orders Only [facility] [place] - [facility] Center [address] [place] [phone] Laura Lopez [address] [place] [phone] Chronic kidney disease, stage 4 (severe) (HCC) [...] (HCC) documented in this encounter Care Teams Technician Support Association Relationship Specialty Start Date End Date Camille Domínguez MD [address] [place], [place] PCP - General 05/23/19 documented as of this encounter
--- OUTSIDE RECORDS SUMMARY | 2025-05-22 11:39 | XMS_ITS | Encounter Summary ---
Author Organization [facility] [place], Address [address] [place] [address] Phone Care Team Providers Care Database Software Technician Name Role Phone Camille Domínguez MD Primary Care Provider [phone] Encounter Details Date Type Department Care Team (Late st Contact Info) Description 05/18/2025 Orders Only [facility] [place] - [facility] Center [address] [place] [phone] Laura Lopez [address] [place] [phone] Chronic kidney disease, stage 4 (severe) (HCC) [...] (HCC) documented in this encounter Care Teams Database Software Technician Relationship Specialty Start Date End Date Camille Domínguez MD [address] [place], [place] PCP - General 05/23/19 documented as of this encounter
--- OUTSIDE RECORDS SUMMARY | 2025-05-22 11:39 | XMS_ITS | Encounter Summary ---
Author Organization [facility] [place], Address [address] [place] [address] Phone Care Team Providers Care Nozzle Cement Sprayer Helper Name Role Phone Camille Domínguez MD Primary Care Provider [phone] Encounter Details Date Type Department Care Team (Late st Contact Info) Description 08/25/2022 Documentation Only [facility] [place], [address] [place] [address] Mahogany Preston [address] [place] [phone] Social History Tobacco Use Types Packs/Day Years [...] on filedocumented in this encounter Care Teams Nozzle Cement Sprayer Helper Relationship Specialty Start Date End Date Camille Domínguez MD [address] [facility] MEDICINE [place], [place] PCP - General 05/23/19 documented as of this encounter
--- OUTSIDE RECORDS SUMMARY | 2025-05-22 11:39 | XMS_ITS | Encounter Summary ---
Author Organization [facility] [place], Address [address] [place] [address] Phone Care Team Providers Care Cross Tie Tram Loader Name Role Phone Camille Domínguez MD Primary Care Provider [phone] Reason for Visit * Reason Comments Med Refill Encounter Details Date Type Department Care Team (Late st Contact Info) Description 01/22/2020 Refill [facility] [address] [place] [address] Sang Lai DO [address] [place] [place] [phone] Social History Tobacco Use Types Packs/Day Years [...] on filedocumented in this encounter Care Teams Cross Tie Tram Loader Relationship Specialty Start Date End Date Camille Domínguez MD [address] [place], [place] PCP - General 05/23/19 documented as of this encounter
--- OUTSIDE RECORDS SUMMARY | 2025-05-22 11:39 | XMS_ITS | Encounter Summary ---
Author Organization [facility] [place], Address [address] [place] [address] Phone Care Team Providers Care Guide Winder Name Role Phone Camille Domínguez MD Primary Care Provider [phone] Encounter Details Date Type Department Care Team (Late st Contact Info) Description 08/25/2022 Documentation Only [facility] [place], [address] [place] [address] Sang Lai, [address] [place] [phone] Social History Tobacco Use Types Packs/Day Years [...] on filedocumented in this encounter Care Teams Guide Winder Relationship Specialty Start Date End Date Camille Domínguez MD [address] [facility] MEDICINE [place] PCP - General 05/23/19 documented as of this encounter
== END 2025-05-22 10:01 | disposition home or self-care (01) ==
LOC: HO.LAB 10:00
PROVIDERS: PCP Internal Medicine; Visit Provider Internal Medicine Nephrology
DX: I15.0 Renovascular hypertension (principal); N25.81 Secondary hyperparathyroidism of renal origin; N18.4 Chronic kidney disease, stage 4 (severe); D63.1 Anemia in chronic kidney disease
CPT/HCPCS: 36415; 80051; 82565; 84520

== ENCOUNTER 2025-07-05 15:36 | Outpatient (AMB) | payer MEDICARE, SELFPAY ==
[2025-07-05 15:41] VITALS: BP 138/70; PULSE 48; O2SAT 99; BMI 28.0
--- NOTE | 2025-07-05 15:41 | HO.NEPHOV_ITS ---
Vital Signs 07/05/25 15:41 Height 5 ft 2 in Weight 153 lb BMI 28.0 BP 138/70 Blood Pressure Location Lt brachial Position Sitting Pulse 48 L Pulse Source Pulse Oximeter Pulse Oximetry (%) 99 Oxygen Delivery Method Room Air Intake Visit Reasons: 2mon f/u w/labs-Conf Superintendent [employer] Required: No Accompanied by: Self / Same As Patient Allergies No Known Allergies Allergy (Verified 07/05/25 15:42) HPI Comments Details: Mr Cotton was seen in follow up of his CKD. He is known to have vascular disease including CAD needing CABG. He has mild ascending aortic dialatation. He also has H/O DM, HTN and gout. He had GFR of 30 mls/mt for some time which has worsened recently to 21 mls/mt. He is on multiple anti hypertensive medications including ARB. He denies CHF, CVA or PAD. He does not have any new bone or back pain. He does not take excess NSAID's . He denies Chest pain, SOB, PND, orthopnea or uremic symptoms. His BP is not at goal . He never had renal biopsy. [facility] Medical History (Updated 04/10/25 @ 20:16 by Meir Domínguez MD) Obstructive sleep apnea syndrome Mild ascending aorta dilatation Hypertension HLD (hyperlipidemia) Helicobacter pylori (H. pylori) Gout Diabetes mellitus Chronic kidney disease, stage 4 (severe) CAD (coronary artery disease), [place] coronary artery Adult hypothyroidism Surgical History H/O colonoscopy S/P CABG x 4 Social History Alcohol intake: never Patient Tobacco Use Status: Never used Tobacco Review of Systems Const All systems reviewed & are unremarkable except as noted in HPI and below Physical Exam Vital Signs: Last Vital Signs Pulse 48 L 07/05/25 15:41 BP 138/70 07/05/25 15:41 Pulse Ox 99 07/05/25 15:41 Oxygen Delivery Method Room Air 07/05/25 15:41 BMI result Body Mass Index 28.0 Const General: comfortable and no acute distress Orientation/consciousness: patient oriented x3 HEENT Head: Yes normocephalic Mouth: Normal oral and palatal mucosa present Eyes EOM: EOMs intact bilaterally Neck Neck: Yes supple Resp Auscultation: clear to auscultation bilaterally Cardio Jugular venous distension: no JVD Rate: regular rate GI Palpation (GI): Soft to palpation Auscultation: normal bowel sounds General: Yes no CVA tenderness Back/Spine/Pelvis Back: no CVA tenderness Skin General skin exam: no rashes or lesions noted Neuro General: patient oriented x3 and moves all extremities Extrem General: Yes no pedal edema Results Reviewed Nephrology Results: Hgb, (14.0-18.0) 10.3 g/dl L 04/03/25 WBC, (4.8-10.8) 5.7 X10*3/uL 04/03/25 Plt Count, (160-400) 103 X10*3/uL L 04/03/25 Sodium, (135-145) 143 mmol/L 05/22/25 Potassium, (3.3-5.1) 4.2 mmol/L 05/22/25 Chloride, (96-108) 115 mmol/L H 05/22/25 Carbon Dioxide, (22-29) 24 mmol/L 05/22/25 BUN, (9-16) 51 mg/dL H 05/22/25 Creatinine, (0.5-1.4) 3.65 mg/dL H 05/22/25 Calcium, (8.4-10.2) 9.2 mg/dL 04/03/25 PTH Intact, (8.7-77.1) 160.8 pg/mL H 04/03/25 Renal US 04/03/25 Assessment & Plan Assessment & Plan (1) Hypertension: Code(s): I10 - Essential (primary) hypertension Category: Medical Qualifiers: Hypertension type: renovascular hypertension Qualified Code(s): I15.0 - Renovascular hypertension (2) Secondary hyperparathyroidism (of renal origin): Code(s): N25.81 - Secondary hyperparathyroidism of renal origin Category: Medical (3) Chronic kidney disease, stage 4 (severe): Code(s): N18.4 - Chronic kidney disease, stage 4 (severe) Category: Medical (4) Anemia in chronic kidney disease: Code(s): N18.9 - Chronic kidney disease, unspecified; D63.1 - Anemia in chronic kidney disease Category: Medical Qualifiers: Chronic kidney disease stage: stage 4 (GFR 15-29) Qualified Code(s): N18.4 - Chronic kidney disease, stage 4 (severe); D63.1 - Anemia in chronic kidney disease Plan Mr Cotton has advanced CKD likely due to vascular disease. He is on losartan 50 mg twice daily. His BP is at goal at home. 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 I have reviewed his CKD W/U. He will need activated Vitamin D soon. His 24 hour urine for cr clearance was 21 mls/mt . I increased his Amlodipine to 10 mg and reduced losartan to 25 mg daily. He will need continued adjustment of BP medications and initiation of Procrit , which I plan to do based on evolving data. He should cut back Na in diet and avoid NSAID's. All questions answered. Orders: Orders Parathyroid Hormone Intact 2 Months D63.1 - Anemia in chronic kidney disease, I15.0 - Renovascular hypertension, N18.4 - Chronic kidney disease, stage 4 (severe), N25.81 - Secondary hyperparathyroidism of renal origin Blood Urea Nitrogen 2 Months D63.1 - Anemia in chronic kidney disease, I15.0 - Renovascular hypertension, N18.4 - Chronic kidney disease, stage 4 (severe), N25.81 - Secondary hyperparathyroidism of renal origin Creatinine 2 Months D63.1 - Anemia in chronic kidney disease, I15.0 - Renovascular hypertension, N18.4 - Chronic kidney disease, stage 4 (severe), N25.81 - Secondary hyperparathyroidism of renal origin Electrolytes 2 Months D63.1 - Anemia in chronic kidney disease, I15.0 - Renovascular hypertension, N18.4 - Chronic kidney disease, stage 4 (severe), N25.81 - Secondary hyperparathyroidism of renal origin Medications: Changed From amlodipine 5 mg PO DAILY 90 tabs 1RF To amlodipine 10 mg PO DAILY 90 tabs 3RF From losartan 25 mg PO ONCE To losartan 25 mg PO DAILY 90 tabs 3RF Coding Level of Care Code Est Pt Level 4 (79710) Diagnoses Renovascular hypertension I15.0 Hypertension type: renovascular hypertension Secondary hyperparathyroidism (of renal origin) N25.81 Chronic kidney disease, stage 4 (severe) N18.4 Anemia in stage 4 chronic kidney disease N18.4; D63.1 Chronic kidney disease stage: stage 4 (GFR 15-29)
--- OUTSIDE RECORDS SUMMARY | 2025-07-05 19:26 | XMS_ITS | Patient Health Record ---
Author Organization [facility] Address [address] [place] [address] Care Team Providers Care Train Examiner Name Role Phone RAKESH BLAKE Primary Care Provider ZACH Reyes [phone] Reason For Referral No Information Medications Medication SIG (Take, Route, Frequency, Duration) Notes Start Date End Date Status Golytely - POWDER FOR RECONSTITUTION 240 ML ORALLY EVERY 15 MINUTES; Duration: 16 DOSE(S) NAME ONLY Conversion from Multum Review and pick correct strength-formulati on from QualiLifean options. If intended option is not shown, discontinue and re-order from Quick Search. Active amLODIPine Besylate 5 MG Tablet 1 tab(s) orally once a day; Duration: 30 day(s) Active Fish Oil TABLET 1200 MG - 1 TAB(S) ORALLY QD NAME ONLY Conversion from Multum Review and pick correct strength-formulati on from [employer] options. If intended option is not shown, discontinue and re-order from Quick Search. Active Atorvastatin Calcium 20 MG Tablet 1 tab(s) orally once a day; Duration: 30 day(s) Active Metoprolol Succinate ER 25 MG Tablet Extended Release 24 Hour 1 tab(s) orally once a day; Duration: 30 day(s) Active Levothyroxine Sodium 100 MCG Tablet 1 tab(s) orally once a day; Duration: 30 day(s) Active Terazosin HCl 2 MG Capsule 2 cap(s) orally once a day (at bedtime) Active Losartan Potassium 100 MG Tablet 1 tab(s) orally once a day; Duration: 30 day(s) Active Aspir-Low 81 MG Tablet Delayed Release 1 tab(s) orally once daily; Duration: 30 day(s) Active Multivitamin - Tablet 1 cap(s) orally once daily; Duration: 30 day(s) Active Social History Tobacco Use: Social History Observation Description Date Details (start date - stop date) Never Smoker NA - NA Social History Tobacco Use: Social Info Question Answer Notes Smoking Are you a: never smoker Additional Details Category Social Info Options Details General 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 a- Living with smokers in household No Section Notes: Golf,walks Golf,walks Golf,walks Problems Problem Type SNOMED Code ICD Code Onset Dates Problem Status W/U Status Risk Notes Problem History of polyp of colon (situation) (503721424) Personal history of colonic polyps (Z86.010) Active confirmed Plan Of Treatment No Information Insurance Providers Payer Name Payer Address Payer Phone Subscriber Number Group Number Insured Name Patient Relationship to Insured Coverage Start Date Coverage End Date MEDICARE [employer] [facility] [address] [place] [address] [id number] HAIM ENNIS Self - patient is the insured 5 BLUE CROSS BLUE [facility] [employer] [address] [place] [address] [id number] HAIM ENNIS Self - patient is the insured Medical (General) History Medical History History ICD Code Hypertension hypercholesterolemia Colonoscopy-COlon polyps 199 7- 09/2002 -Hx colon polyps-Nl///Colon12/30/07nl//Colon05/12/13nl-Rec [id number] sleep apnea heart disease-CABG 2009 overactive bladder Colonoscopy 07/25/18 normal colon Surgical History Surgery Date(Month/Year) bypass-CABG 2008-Andres
--- OUTSIDE RECORDS SUMMARY | 2025-07-05 19:26 | XMS_ITS | Encounter Summary ---
Author Organization [facility], Address [address] [place] [address] Phone Care Team Providers Care Smoke Control Supervisor Name Role Phone Camille Domínguez MD Primary Care Provider [phone] Encounter Details Date Type Department Care Team (Late st Contact Info) Description 04/26/2024 Documentation Only [facility], [address] [place] [address] Sang Lai, [address] [place] [phone] Social History Tobacco Use Types Packs/Day Years [...] on filedocumented in this encounter Care Teams Smoke Control Supervisor Relationship Specialty Start Date End Date Camille Domínguez MD [address] [facility] [place], [place] PCP - General 05/23/19 documented as of this encounter
--- OUTSIDE RECORDS SUMMARY | 2025-07-05 19:27 | XMS_ITS | Encounter Summary ---
Author Organization [facility] [place], Address [address] [place] [address] Phone Care Team Providers Care Rubber Compounder Formulator Name Role Phone Camille Domínguez MD Primary Care Provider [phone] Encounter Details Date Type Department Care Team (Late st Contact Info) Description 08/25/2022 Documentation Only [facility] [place], [address] [place] [address] Sang Lai, [address] [place] [phone] Social History Tobacco Use Types Packs/Day Years [...] on filedocumented in this encounter Care Teams Rubber Compounder Formulator Relationship Specialty Start Date End Date Camille Domínguez MD [address] [facility] [place], [place] PCP - General 05/23/19 documented as of this encounter
--- OUTSIDE RECORDS SUMMARY | 2025-07-05 19:27 | XMS_ITS | Encounter Summary ---
Author Organization [facility] [place], Address [address] [place] [address] Phone Care Team Providers Care Charter Coordinator Name Role Phone Camille Domínguez MD Primary Care Provider [phone] Encounter Details Date Type Department Care Team (Late st Contact Info) Description 05/18/2025 Orders Only [facility] - [facility] [address] [place] [phone] Laura Lopez [address] [place] [phone] Chronic kidney disease, stage 4 (severe) (HCC) [...] (HCC) documented in this encounter Care Teams Charter Coordinator Relationship Specialty Start Date End Date Camille Domínguez MD [address] [place], [place] PCP - General 05/23/19 documented as of this encounter
--- OUTSIDE RECORDS SUMMARY | 2025-07-05 19:27 | XMS_ITS | Encounter Summary ---
Author Organization [facility] Address [address] [facility] [address] [place] [address] Phone Care Team Providers Care Nursing Informatics Analyst Name Role Phone Camille Domínguez MD Primary Care Provider [phone] Encounter Details Date Type Department Care Team (Late st Contact Info) Description 01/04/2025 Procedure [facility] Emergency Department, [facility] [address] [place] [address] Social History Tobacco Use Types Packs/Day Years [...] 2:30 AM EDT Emmanuelle Marti RN * [place] Suicide Severity Rating Scale (Screener/Recent Self-Report) Question Answer Date of Assessment Author 1. Wish to be (Past 1 Month) No 01/05/2025 2:30 AM EDT Emmanuelle Marti RN 2. Non-Specific Active Suicidal Thoughts (Past 1 Month) No 01/05/2025 2:30 AM EDT Emmanuelle Marti RN 6. Suicidal Behavior (Lifetime) No 01/05/2025 2:30 AM EDT Emamnuelle Marti RN documented as of this encounter Plan of Treatment Not on file documented as of this encounter Visit Diagnoses Not on filedocumented in this encounter Care Teams Nursing Informatics Analyst Relationship Specialty Start Date End Date Camille Domínguez MD [address] [place] [address] PCP - General Internal Medicine 01/04/25 documented as of this encounter Additional Source Comments The information contained in this document represents components of the legal health record. It is not the complete legal health record.[facility]
--- OUTSIDE RECORDS SUMMARY | 2025-07-05 19:27 | XMS_ITS | Encounter Summary ---
Author Organization [facility] [place], Address [address] [place] [address] Phone Care Team Providers Care Sales Promotion Representative Name Role Phone Camille Domínguez MD Primary Care Provider Encounter Details Date Type Department Care Team (Late st Contact Info) Description 08/30/2024 Documentation Only [facility] [place], [address] [place] [address] Sang Lai, [address] [place] [phone] Social History Tobacco Use Types Packs/Day Years [...] on filedocumented in this encounter Care Teams Sales Promotion Representative Relationship Specialty Start Date End Date Camille Domínguez MD [address] [facility] [place], [place] PCP - General 05/23/19 documented as of this encounter
--- OUTSIDE RECORDS SUMMARY | 2025-07-05 19:27 | XMS_ITS | Encounter Summary ---
Author Organization [facility] [place], Address [address] [place] [address] Phone Care Team Providers Care Tractor Operator Helper Name Role Phone Camille Domínguez MD Primary Care Provider [phone] Encounter Details Date Type Department Care Team (Late st Contact Info) Description 02/23/2025 Orders Only [facility] [place] - [facility] [address] [place] [phone] Laura Lopez [address] [place] [phone] Chronic kidney disease, stage 4 (severe) (HCC) [...] documented in this encounter Care Teams Tractor Operator Helper Relationship Specialty Start Date End Date Camille Domínguez MD [address] [place], [place] PCP - General 05/23/19 documented as of this encounter
--- OUTSIDE RECORDS SUMMARY | 2025-07-05 19:27 | XMS_ITS | Encounter Summary ---
Author Organization [facility] [place], Address [address] [place] [address] Phone Care Team Providers Care Reversal Print Inspector Name Role Phone Camille Domínguez MD Primary Care Provider [phone] Encounter Details Date Type Department Care Team (Late st Contact Info) Description 08/25/2022 Documentation Only [facility] [place], [address] [place] [place] [address] Mahogany Preston [address] [place] [phone] Social History Tobacco Use Types Packs/Day Years [...] on filedocumented in this encounter Care Teams Reversal Print Inspector Relationship Specialty Start Date End Date Camille Domínguez MD [address] [facility] [place], [place] PCP - General 05/23/19 documented as of this encounter
--- OUTSIDE RECORDS SUMMARY | 2025-07-05 19:27 | XMS_ITS | Encounter Summary ---
Author Organization [facility] [place], Address [address] [place] [address] Phone Care Team Providers Care Land Surveyor Name Role Phone Camille Domínguez MD Primary Care Provider [phone] Encounter Details Date Type Department Care Team ([facility] st Contact Info) Description 05/04/2025 Orders Only [facility] [place], [address] [place] [address] Sang Lai, [address] [place] [phone] Chronic kidney disease, stage 4 (severe) (HCC); [...] (HCC) documented in this encounter Care Teams Land Surveyor Relationship Specialty Start Date End Date Camille Domínguez MD NPI: [id number] [place] [address] PCP - General 05/23/19 documented as of this encounter
--- OUTSIDE RECORDS SUMMARY | 2025-07-05 19:27 | XMS_ITS | Encounter Summary ---
Author Organization [facility] [place], Address [address] [place] [address] Phone Care Team Providers Care Clinical Trial Manager Name Role Phone Camille Domínguez MD Primary Care Provider [phone] Encounter Details Date Type Department Care Team (Late st Contact Info) Description 09/10/2019 Orders Only [facility] [address] [place] [address] Sang Lai DO [address] [place] [phone] Benign prostatic hypertrophy without outflow obstruction Social [...] obstruction documented in this encounter Care Teams Clinical Trial Manager Relationship Specialty Start Date End Date Camille Domínguez MD [address] [place], [place] PCP - General 05/23/19 documented as of this encounter
--- OUTSIDE RECORDS SUMMARY | 2025-07-05 19:27 | XMS_ITS | Encounter Summary ---
Author Organization [facility] [place], Address [address] [place] [address] Phone Care Team Providers Care Glazier Artist Name Role Phone Camille Domínguez MD Primary Care Provider [phone] Encounter Details Date Type Department Care Team (Late st Contact Info) Description 12/05/2024 Orders Only [facility] [place] - [facility] [address] [place] [phone] Laura Lopez [address] [place] [phone] Chronic kidney disease, stage 4 (severe) (HCC) [...] Primary documented in this encounter Care Teams Glazier Artist Relationship Specialty Start Date End Date Camille Domínguez MD [address] [facility] [place], [place] PCP - General 05/23/19 documented as of this encounter
--- OUTSIDE RECORDS SUMMARY | 2025-07-05 19:27 | XMS_ITS | Encounter Summary ---
Author Organization [facility] [place], Address [address] [place] [address] Phone Care Team Providers Care Paunch Trimmer Name Role Phone Camille Domínguez MD Primary Care Provider [phone] Reason for Visit * Reason Comments Med Refill Encounter Details Date Type Department Care Team ([facility] st Contact Info) Description 01/22/2020 Refill [facility] [address] [place] [address] Sang Lai DO [address] [place] [place] [phone] Social History Tobacco Use Types Packs/Day Years [...] on filedocumented in this encounter Care Teams Paunch Trimmer Relationship Specialty Start Date End Date Camille Domínguez MD [address] [place], [place] PCP - General 05/23/19 documented as of this encounter
--- OUTSIDE RECORDS SUMMARY | 2025-07-05 19:27 | XMS_ITS | Encounter Summary ---
Author Organization [facility] [place], Address [address] [place] [address] Phone Care Team Providers Care Courier Driver Name Role Phone Camille Domínguez MD Primary Care Provider [phone] Encounter Details Date Type Department Care Team (Late st Contact Info) Description 05/13/2023 Documentation Only [facility] [place], [address] [place] [address] Sang Lai, [address] [facility] [address] [place] [phone] Social History Tobacco Use Types Packs/Day Years [...] on filedocumented in this encounter Care Teams Courier Driver Relationship Specialty Start Date End Date Camille Domínguez MD [address] [facility] [place], [place] PCP - General 05/23/19 documented as of this encounter
--- OUTSIDE RECORDS SUMMARY | 2025-07-05 19:27 | XMS_ITS | Encounter Summary ---
Author Organization [facility] [place], Address [address] [place] [address] Phone Care Team Providers Care General Hardware Salesperson Name Role Phone Camille Domínguez MD Primary Care Provider [phone] Encounter Details Date Type Department Care Team (Late st Contact Info) Description 01/18/2024 Documentation Only [facility] [place], [address] [place] [address] Sang Lai, [address] [place] [phone] Social History Tobacco Use Types Packs/Day Years [...] on filedocumented in this encounter Care Teams General Hardware Salesperson Relationship Specialty Start Date End Date Camille Domínguez MD [address] [facility] [place], [place] PCP - General 05/23/19 documented as of this encounter
--- OUTSIDE RECORDS SUMMARY | 2025-07-05 19:27 | XMS_ITS | Clinical Summary ---
Author Organization [facility] [place] [address] Care Team Providers Care Board Member Name Role Phone Camille Domínguez MD Primary Care Provider [phone] Social History Tobacco Use Types Packs/Day Years [...] Depression Screening 07/19/2024 COVID-19 Vaccine (1 - 2024-2 6 season) 2025 Influenza Vaccine (#1) 2025 HIB [...] age to complete this topic Care Teams Board Member Relationship Specialty Start Date End Date Camille Domínguez MD [address] [place] [address] PCP - General 03/22/24
--- OUTSIDE RECORDS SUMMARY | 2025-07-05 19:27 | XMS_ITS | Clinical Summary ---
Author Organization [facility] Address [address] [facility] [address] [place] [address] Phone Care Team Providers Care Public Health Microbiologist Name Role Phone Camille Domínguez MD Primary Care Provider [phone] Allergies No known active allergies Medications METOPROLOL [...] Units by mouth daily. Active Ca cit-D3-mag#11-z syf-epfx-wiq-aaliyah r (CALTRATE 600+D) 600 mg calcium- 800 unit-50 mg Tab Take 1 tablet by mouth daily. Active omega 5-svf-pxu-fish oil 1,000 mg (120 mg-180 mg) Cap [...] EDT) SODIUM 139 136 - 145 mmol/L [facility] CHLORIDE 105 95 - 106 mmol/L [facility] POTASSIUM 4.4 3.5 - 5.2 mmol/L [facility] CO2 23 20 - 31 mmol/L [facility] BUN 45(H) 9 - 23 mg/dL [facility] CREATININE 2.94(H) 0.50 - 1.30 mg/dL [facility] GLUCOSE 111(H) 74 - 106 mg/dL [facility] CALCIUM 9.1 8.7 - 10.4 mg/dL [facility] EGFR 20(L) >60 mL/min/1.7 3m2 [facility] Comment:Estimated glomerular filtration rate calculated using the CKD-EPI refit equation. ANION GAP 11 3 - 17 mmol/L [facility] Blood 01/06/2025 6:58 AM EDT 01/06/2025 7:41 AM EDT us Crystal Ellsworth PA-C LAB BLOOD BKR ORDERABLES Final Result Performing Organization Address City/State/[facility] Co de Phone Number [facility] [address] [place] [address] from Last 3 Months or Most Recently Relevant to Health Maintenance Insurance MEDICARE PART A & B [employer]EX SUPPLEMENT MEDICARE PART A & B [employer] [place] [address] MEDICARE PART A & B [employer] MEDEX SUPPLEMENT MEDICARE PART A & B [employer] MEDEX SUPPLEMENT MEDICARE PART A & B [employer] SUPPLEMENT MEDICARE PART A & B [employer]EX SUPPLEMENT MEDICARE PART A & B [employer] MEDEX SUPPLEMENT MEDICARE PART A & B [employer] MEDEX SUPPLEMENT MEDICARE PART A & B [employer] MEDEX SUPPLEMENT Advance Directives For more information, please contact: [phone] (9AM - 5PM Barbara/[facility], Wednesday-Wednesday) * Full Code (Latest Code Status on File) Date Activated Date Inactivated Comments 01/04/2025 11:55 PM Question Answer Comments Code Status Confirmed With: Patient Care Teams Public Health Microbiologist Relationship Specialty Start Date End Date Camille Domínguez MD [address] [place] [address] PCP - General Internal Medicine 01/04/25 Additional Source Comments The information contained in this document represents components of the legal health record. It is not the complete legal health record.[facility]
--- OUTSIDE RECORDS SUMMARY | 2025-07-05 19:27 | XMS_ITS | Encounter Summary ---
Author Organization [facility] [place], Address [address] [place] [address] Phone Care Team Providers Care Spike Machine Operator Name Role Phone Camille Domínguez MD Primary Care Provider [phone] Encounter Details Date Type Department Care Team (Late st Contact Info) Description 05/27/2023 Documentation Only [facility] [place], [address] [place] [address] Sang Lai, [address] [place] [phone] Social History Tobacco Use Types Packs/Day Years [...] on filedocumented in this encounter Care Teams Spike Machine Operator Relationship Specialty Start Date End Date Camille Domínguez MD [address] [facility] [place], [place] PCP - General 05/23/19 documented as of this encounter
--- OUTSIDE RECORDS SUMMARY | 2025-07-05 19:27 | XMS_ITS | Clinical Summary ---
Author Organization [facility] [place], Address [address] [place] [address] [place] [address] Phone Care Team Providers Care Pathology Laboratory Director Name Role Phone Camille Domínguez MD Primary Care Provider [phone] Allergies No known active allergies Medications aspirin [...] DAY 90 tablet 3 04/11/20 25 Active losartan (COZAAR) 50 MG tablet TAKE 1 TABLET (50 MG TOTAL) BY MOUTH IN THE MORNING AND IN THE EVENING 180 tablet 3 06/27/20 25 Active losartan (COZAAR) 50 MG tablet Take 1 tablet (50 mg total) by mouth in the morning and 1 tablet (50 mg total) in the evening. 180 tablet 3 06/09/20 24 025 Discontinued Active Problems Problem Noted [...] Encounters Date Type Department Care Team Description 06/27/2025 Refill [facility] [address] [place] [phone] Sang Lai DO 05/29/2025 Telephone [facility] [address] [place] [phone] Fiona Torres [place] 05/18/2025 Orders Only [facility] Vascular Access Center [address] [place] [phone] Laura Lopez Chronic kidney disease, stage 4 (severe) (HCC) 05/04/2025 Orders Only [facility] [address] [place] [address] Sang Lai DO Chronic kidney disease, stage 4 (severe) (HCC); Hypertensive heart and chronic kidney disease without heart failure, with stage 1 through stage 4 chronic kidney disease, or unspecified chronic kidney disease; Persistent proteinuria; Aneurysm of aorta, not otherwise specified (HCC) 04/11/2025 Refill [facility] [address] [phone] Sang Lai DO from Last 3 Months [...] AM EST) Hemoglobin A1C 6.2(H) (4.0-5.6) % [facility] Comment: MONITORING: In known diabetic patients, hemoglobin A1c targets should be discussed with health care provider. DIAGNOSTIC USE: The [place] Diabetes [employer] (ADA) and the World Health [...] Supplement 1 Testing performed or reported by [facility], a Service of [facility], [address] [place] [address] Scotty Castelan MD, Liquid Center Assembler [facility]# [id number] Blood specimen (specimen) Venous blood / Unknown 09/01/2021 7:55 AM EST 09/01/2021 8:00 AM EST us Sang Lai DO LAB BLOOD ORDERABLES Final Resu lt [facility] AN[facility]IO from Last 3 Months or Most Recently Relevant to Health Maintenance Insurance [facility] Medicare Care Teams Pathology Laboratory Director Relationship Specialty Start Date End Date Camille Domínguez MD [address] [place], [place] PCP - General 05/23/19
== END 2025-07-05 16:03 | disposition home or self-care (01) ==
LOC: HO.HKAS 15:36
PROVIDERS: PCP Internal Medicine; Visit Provider Internal Medicine Nephrology
DX: I15.0 Renovascular hypertension (principal); N25.81 Secondary hyperparathyroidism of renal origin; N18.4 Chronic kidney disease, stage 4 (severe); D63.1 Anemia in chronic kidney disease
CPT/HCPCS: 99214

== ENCOUNTER → 2025-07-05 15:36 | Outpatient (BNVA) | payer MEDICARE, SELFPAY | PROVIDERS: PCP Internal Medicine; Visit Provider Internal Medicine Nephrology | DX: I15.0 Renovascular hypertension (principal); N25.81 Secondary hyperparathyroidism of renal origin; N18.4 Chronic kidney disease, stage 4 (severe); D63.1 Anemia in chronic kidney disease; I71.40 Abdominal aortic aneurysm, without rupture, unspecified | CPT/HCPCS: 99212 ==